=== PATIENT | female | born 1975 | race Caucasian/White ===

== ENCOUNTER 2016-06-09 16:35 | Emergency (ER) | payer MEDICAID ==
[~2016-06-09 16:35] MED LIST: /ALEN70TA PO; /DULO30CA PO; /ESOM40CA PO; /FENT75PA TD; /ONDA4TA OR; /QUET10TA PO; ACET500T2 PO; ALBU0.63 INH; ALBU17IN INH; ALBU83IN IN; ALBU83IN INH; ALREX OU; AMAN10CA PO; AMBI10TA PO; AMBI5TAB PO; BACT2CRE EX; BACT2CRE TOP; BACT400T PO; BACTROBAN; BETO0.25 OS; BETO0.25 OU; BISO10TA6 PO; BISO5TAB5 PO; CALCCHW12 PO; CEFD1CAP8 PO; CIPR500T19 PO; CIPR500T89 PO; CITRTAB10 PO; CITRTAB19 PO; CLOTR1CR TOP; CORT10TA PO; CORT20TA PO; CORTEF PO; DEPA250T3 OR; DEPA250T32 PO; DICL13PA TD; DILA4TAB PO; DILA8TAB4 PO; DIPR0.052 TD; DIPROLENE TOP; DITR5TAB PO; DIVA500T9 PO; DULO1CAP3 PO; DULO30CA PO; DURA100D2 TD; EES TD; ERYTHROMYCI1 OP; FLAG500T PO; FLUD0.1T PO; FLUT11IN INH; FOLI1TAB PO; FOLI1TAB2 PO; FOLI5CAP PO; FROVA PO; GLUC1CAP9 PO; GLUC500T3 OR; HYDR-3291 PO; HYDR4TAB OR; IMOD2TAB16 PO; K-TA1TAB PO; LAMI250T3 PO; LEVO75TA4 PO; LEVO88TA4 PO; LIDO5DIS TD; LISI-542 PO; LISI10TA4 PO; MAGN400C2 PO; MAGN64TASA PO; MELOPOW PO; METH2.5T PO; METH2.5TA PO; MIRT15TA3 PO; MIRT30TA3 PO; MOBI7.5T10 PO; MULTCAP PO; MULTIVIT PO; NEUR100C PO; NEUR300C PO; NEXI40CA PO; NORC5TAB PO; OLAN10TA2 PO; OLAN5TAB PO; ONDA1TAB16 PO; PERC5TAB6 PO; PERCOCET PO; POTA10CA PO; POTA1INJ PO; PREG100CA PO; PRIN5TAB PO; PROBCAP4 PO; RANI150C OR; RANI15TA PO; RANI300T PO; ROZE8TAB PO; SERO200T OR; SERO50TA PO; SING10TA31 PO; SING10TA32 PO; SKEL800T5 OR; SPIR25TA2 PO; SULF500T2 PO; SULF50TA PO; TIGA300C PO; TIZA4CAP3 PO; TRAZ50TA4 PO; TYLE325T5 PO; TYLE500T78 PO; TYLE650T35 PO; VIT D 2000 PO; VITA100066 PO; VITA50003 PO; VITMTA PO; VOLT1GEL EX; VOLT1GEL24 TOP; XALA0.002 OU; ZITHTAB PO; ZOFR20TA PO; [UNRECOGNIZED DRUG - CODE] IV; [UNRECOGNIZED DRUG - CODE] OU; [UNRECOGNIZED DRUG - CODE] SC; [UNRECOGNIZED DRUG - CODE] TOP; [UNRECOGNIZED DRUG - OTHER]; [UNRECOGNIZED DRUG - OTHER] OU; [UNRECOGNIZED DRUG - OTHER] PO; [UNRECOGNIZED DRUG - OTHER] TOP; enbrel SC; fludrocortisone PO; kadian PO; pataday OU; veramyst
[2016-06-09] MEDS ORDERED: MORPHINE 2 MG/ML 1ML SYRINGE As Ordered ONE (18:54)
[2016-06-09 19:37] LABS: MEAN CORPUSCULAR HEMOGLOBIN 25.9 pg (27.0-33.0); MEAN CORPUSCULAR HGB CONC 31.6 g/dl (32.0-36.5); PLATELET COUNT, AUTOMATED 326 k/mm3 (150-450); RED CELL DISTRIBUTION WIDTH 17.2 % (11.5-14.5); WHITE BLOOD COUNT 10.3 K/mm3 (4.0-10.0)
[2016-06-09 19:53] LABS: ANISOCYTOSIS 2+; HYPOCHROMASIA 2+
[2016-06-09 20:40] LABS: ANION GAP 10 MEQ/L (8-16); BLOOD UREA NITROGEN 15 MG/DL (7-18); CALCIUM LEVEL 9.4 MG/DL (8.5-10.1); CARBON DIOXIDE LEVEL 22 MEQ/L (21-32); CHLORIDE LEVEL 106 MEQ/L (98-107); CREATININE FOR GFR 0.78 MG/DL (0.55-1.02); GLOMERULAR FILTRATION RATE > 60.0 (>60); GLUCOSE, FASTING 86 MG/DL (70-105); POTASSIUM SERUM 4.3 MEQ/L (3.5-5.1); SODIUM LEVEL 138 MEQ/L (136-145)
--- NOTE | 2016-06-09 20:40 | REPUSA ---
CT of the lumbar spine without contrast Clinical history: Pain. Technique: Multiple axial CT images were obtained through the lumbar spine without administration of contrast. Coronal and sagittal 3-D reconstructed images were also obtained. Findings: The lumbar vertebral bodies are in satisfactory positioning and alignment. No fractures or dislocatio ns are demonstrated. Intervertebral disc spaces are well-maintained. Minimal facet arthropathy is see n bilaterally at L5/S1. There is no evidence of facet subluxation. The neural foramen appear grossly patent. The spinal canal demonstrates normal caliber and contour without evidence of spinal stenosis. The surrounding soft tissues are within normal limits. Impression: No acute fracture or traumatic injury. Mild facet arthropathy is seen bilaterally at L5/S 1.
--- NOTE | 2016-06-09 20:40 | REPUSA ---
CT of the cervical spine Clinical history: Pain. Seizure. Technique: Multiple axial CT images were obtained through the cervical spine without administration o f contrast. Coronal and sagittal 3-D reconstructed images were also obtained. Comparison: None. Findings: The cervical vertebral bodies are in satisfactory positioning and alignment. No fractures or dislocat ions are demonstrated. The odontoid process is intact. Intervertebral disc spaces are well-maintained . Minimal facet arthropathy is seen at C4/C5. There is no evidence of facet subluxation. The neural f oramen appear grossly patent. The cervical cranial junction is intact. The cervical spinal canal demo nstrates normal caliber and contour without evidence of spinal stenosis. The surrounding soft tissues are within normal limits. Impression: Unremarkable CT examination of the cervical spine. Minimal spondylosis.
--- NOTE | 2016-06-09 20:40 | REPUSA ---
CT of the head Clinical history: seizures.. Comparison: 07/12/2015. 01/14/2016. Technique: Multiple axial CT images were obtained through the head without administration of contrast . Findings: The ventricles and sulci are symmetric bilaterally. There is no evidence of acute hemorrhag e or infarct. There is no midline shift, mass effect, or extra-axial fluid collection. The osseous st ructures are unremarkable. The visualized paranasal sinuses and mastoid air cells are clear. Impression: Negative study.
--- NOTE | 2016-06-09 20:50 | REPUSA ---
CT of the thoracic spine without contrast Clinical history: Pain. Technique: Multiple axial CT images were obtained through the thoracic spine without administration o f contrast. Coronal and sagittal 3-D reconstructed images were also obtained. Findings: The vertebral bodies are in satisfactory positioning and alignment. No fractures or dislocations are demonstrated. Intervertebral disc spaces are well-maintained. There is no evidence of facet subluxati on. The neural foramen appear grossly patent. The spinal canal demonstrates normal caliber and contou r without evidence of spinal stenosis. The surrounding soft tissues are within normal limits. Impression: No acute traumatic injury
[2016-06-09] MEDS ORDERED: DIVALPROEX 250 MG TAB As Ordered ONE (22:45)
--- NOTE | 2016-06-09 22:58 | EDDOCDS ---
Physician Documentation [facility] Name: Demi Burger Age: 40 yrs Sex: Female : 1975 Arrival Date: 06/09/2016 Time: 16:35 Bed 8 Private MD: Fredo Patel Disposition: 06/09/16 22:26 Discharged to Home/Self Care. Impression: Epilepsy and recurrent seizures, Patient's unintentional underdosing of medication regimen. - Condition is Stable. - Medication Reconciliation, Local Pharmacy Hours form. - Follow up: Fredo Patel; When: Call to arrange an appointment; Reason: Recheck today's complaints. - Problem is an ongoing problem. - Symptoms have improved. Historical: - Allergies: Aspirin (Hematuria); Bentyl ("feels like i want to pull my skin off"); Biaxin (Rash); GOLD SALTS (Hematuria); Ibuprofen (Hematuria); Toradol (Hematuria); Ultram (Seizures); Wellbutrin (Seizures); - Home Meds: 1. albuterol sulfate 2.5 mg /3 mL (0.083 %) Inhl HFAA 3 mL prn 2. bactroban cream 2% 3. Betoptic S 0.25 % Opht drps 1 drop 2 times per day 4. bisoprolol fumarate 10 mg oral tab 1 tab once daily 5. Citracal 200 mg (950 mg) Oral tab 4 tab daily 6. Cortef 30 mg oral tab 2 tabs once daily 7. Cortef 10 mg oral tab 1 tab nightly 8. Cymbalta 60 mg Oral cpDR 1 cap once daily 9. Depakote ER 500 mg ER one tab in AM and two at HS Oral Tb24 1 tab 10. dexamethasone sodium phos (PF) 10 mg/mL injection soln 1 mL At onset of adrenal crisis 11. Flovent 110 mcg/actuation Inhl aero 1 puff 2 times per day 12. folic acid 1 mg Oral tab 5 tab once daily 13. glucosamine-chondroitin 500-400 mg oral tab 3 tab nightly 14. Imodium A-D 2 mg oral tab 2 tabs 15. Kineret 100 mg/0.67 mL subcutaneous syrg daily PRN 16. levothyroxine 75 mcg Oral cap 1 cap once daily 17. lisinopril 5 mg Oral tab 2 tabs once daily 18. Mag 64 64 mg oral tab 1 tab daily 19. methotrexate sodium 2.5 mg Oral tab 6 tabs every Sunday 20. mirtazapine 30 mg Oral TbDL nightly 21. Mobic 15 mg oral tab 1 tab once daily 22. multivitamin Oral tab 1 tab daily 23. Nexium 40 mg Oral cpDR 1 cap once daily 24. potassium chloride 10 mEq Oral cpER 2 caps once daily 25. ProAir HFA 90 mcg/actuation inhalation HFAA 1 puff as needed 26. sulfasalazine 500 mg Oral tab 2 tab three times a day 27. Tigan 300 mg Oral cap BID PRN 28. Tylenol 500mg Oral 1 tab as needed 29. Vitamin D Oral 1000 unit daily couple weeks ago 30. voltaren gel as needed 31. Xalatan 0.005 % Opht drop 1 drop once daily 32. Zebeta 10 mg oral tab 2 tabs once daily 33. Zofran (as hydrochloride) 8 mg Oral tab 1 tab every 6 hours as needed 34. hydroxyzine HCl 25 mg Oral tab as needed - PMHx: adrenal crisis; adrenal insufficiency; Asthma; benign mitral valve prolapse; chronic anemia; Colitis; Fibromyalgia; GERD; Hypertension; Hypothyroidism; IBS; juvenile arthritis; Lupus; Migraines; neuropathy; Seizures; - PSHx: Knee surgery- Left; left great toe; right wrist; - Social history: Smoking status: Patient states former smoker of tobacco. No barriers to communication noted, The patient speaks fluent Arabic. - Family history: Not pertinent. - : The pt / caregiver states he / she is not on anticoagulants. Home medication list is obtained from the patient. - Exposure Risk Screening:: None identified. 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 0 in. (152.40 cm) (R); 18:07 BP 130 / 67 (auto/); ttb 18:08 Pulse 112 MON; Resp 18 S; Pulse Ox 98% on R/A; ttb 18:58 BP 147 / 88 (auto/); ttb 18:59 Pulse 118 MON; Pulse Ox 97% on R/A; ttb 19:27 Pulse 110 MON; Resp 18 S; Pulse Ox 98% on R/A; ttb 19:28 BP 134 / 68 (auto/); ttb 19:30 Resp 18 S; ttb 19:57 Pulse 112 MON; Resp 18 S; Pulse Ox 97% on R/A; ttb 19:58 BP 134 / 64 (auto/); ttb 20:28 BP 126 / 66 (auto/); ttb 20:28 Pulse 110 MON; Pulse Ox 98% ; ttb 22:44 BP 131 / 81 LA Sitting (auto/reg); Pulse 119 MON; Resp 22 S; Temp 99.3(TE); Pulse Ox cln 99% on R/A; Pain 8/10; 16:36 Body Mass Index 24.02 (55.79 kg, 152.40 cm) dd6 MDM: 18:11 IV Saline Lock ordered. br1 18:12 CBC with Diff Ordered. EDMS 18:12 BMP Ordered. EDMS 18:44 Card Writer Hand/Pulse Ox/q 30 min VS ordered. br1 18:45 Seizure Precautions ordered. br1 18:46 ECG WITH READING ER PHYS+CARDIAG ordered. EDMS 18:46 CT Head Without Contrast Ordered. EDMS 18:46 CT Spine,Cervical W/o Contrast Ordered. EDMS 18:46 CT Spine,Thoracic W/o Contrast Ordered. EDMS 18:46 CT Spine, Lumbar W/o Contrast Ordered. EDMS 18:47 morphine 2 mg IVP once ordered. br1 19:05 Financial registration complete. zo 19:06 [facility] [place] was scanned into [employer] and attached to record. zo 19:18 Transition of care: After a detail discussion of the patient's case, care is br1 transferred to ED Physician, Dr. Morley. 19:21 VALPROIC ACID (DEPAKOTE) Ordered. EDMS 19:39 DIFFERENTIAL NO CHARGE Ordered. EDMS 22:19 CBC with Diff Reviewed. cs11 22:19 VALPROIC ACID (DEPAKOTE) Reviewed. cs11 22:19 BMP Reviewed. cs11 22:19 PLATELET ESTIMATE Reviewed. cs11 22:19 CT Head Without Contrast Reviewed. cs11 22:19 CT Spine,Cervical W/o Contrast Reviewed. cs11 22:19 CT Spine,Thoracic W/o Contrast Reviewed. cs11 22:19 CT Spine, Lumbar W/o Contrast Reviewed. cs11 22:[address] - Divalproex Sodium Delayed Release Tablet 500 mg PO once ordered. cs11 Administered Medications: 19:05 Drug: morphine 2 mg [morphine 2 mg/mL intravenous cartridge (1 mL)] Route: IVP; Site: ld5 right forearm; 19:30 Follow up: Resp 18 bpm Spontaneous; Response: No Adverse Reaction ttb 22:57 Follow up: Response: Confirmed pt not driving. ttb 22:52 Drug: Depakote DR - Divalproex Sodium 500 mg [divalproex 250 mg tablet,delayed release ttb (2 tabs)] Route: PO; Signatures: Dispatcher [employer] EDMS Montrell Cochran Brian, MD MD br1 Serene Jose RN RN rs3 Cornell Morley, DO cs11 Rivka Campbell RN RN ttb Beatriz Ashley RN ld5 The chart was reviewed and I authenticate all verbal orders and agree with the evaluation and treatment provided.Corrections: (The following items were deleted from the chart) 19:19 18:45 VALPROIC ACID (DEPAKOTE)+LAB ordered. EDMS EDMS Attachments: 19:06 [facility] [place] Agreement zo MTDD
--- NOTE | 2016-06-09 22:58 | EDDOCDS ---
Nurse's Notes [facility], [place] Name: Demi Burger Age: 40 yrs Sex: Female : 1975 Arrival Date: 06/09/2016 Time: 16:35 Bed 8 Private MD: Fredo Patel Diagnosis: Epilepsy and recurrent seizures;Patient's unintentional underdosing of medication regimen Presentation: 06/09 16:39 Presenting complaint: Patient states: had 3 seizures since this morning, found herself rs3 on the floor. reports of dizziness. Adult Sepsis Screening: The patient does not have new or worsening altered mentation. Patient's respiratory rate is less than 22. Systolic blood pressure is greater than 100. Patient has a qSOFA score of 0- Negative Sepsis Screen. Suicide/Homicide risk assessment- the patient denies having any suicidal and/or homicidal ideations and does not present with any other emotional, behavioral or mental health complaints. Status: Patient is not a career services assistant or dependent. Transition of care: patient was not received from another setting of care. 16:39 Acuity: EULA Level 3 rs3 16:39 Method Of Arrival: Wheelchair rs3 Triage Assessment: 16:45 General: Appears in no apparent distress. Pain: Location: back. HIV screening NA for rs3 this visit Offered previously. 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 albuterol sulfate 2.5 mg /3 mL (0.083 %) Inhl HFAA 3 mL prn 2. bactroban cream 2% 3. Betoptic S 0.25 % Opht drps 1 drop 2 times per day 4. bisoprolol fumarate 10 mg oral tab 1 tab once daily 5. Citracal 200 mg (950 mg) Oral tab 4 tab daily 6. Cortef 30 mg oral tab 2 tabs once daily 7. Cortef 10 mg oral tab 1 tab nightly 8. Cymbalta 60 mg Oral cpDR 1 cap once daily 9. Depakote ER 500 mg ER one tab in AM and two at HS Oral Tb24 1 tab 10. dexamethasone sodium phos (PF) 10 mg/mL injection soln 1 mL At onset of adrenal crisis 11. Flovent 110 mcg/actuation Inhl aero 1 puff 2 times per day 12. folic acid 1 mg Oral tab 5 tab once daily 13. glucosamine-chondroitin 500-400 mg oral tab 3 tab nightly 14. Imodium A-D 2 mg oral tab 2 tabs 15. Kineret 100 mg/0.67 mL subcutaneous syrg daily PRN 16. levothyroxine 75 mcg Oral cap 1 cap once daily 17. lisinopril 5 mg Oral tab 2 tabs once daily 18. Mag 64 64 mg oral tab 1 tab daily 19. methotrexate sodium 2.5 mg Oral tab 6 tabs every Sunday 20. mirtazapine 30 mg Oral TbDL nightly 21. Mobic 15 mg oral tab 1 tab once daily 22. multivitamin Oral tab 1 tab daily 23. Nexium 40 mg Oral cpDR 1 cap once daily 24. potassium chloride 10 mEq Oral cpER 2 caps once daily 25. ProAir HFA 90 mcg/actuation inhalation HFAA 1 puff as needed 26. sulfasalazine 500 mg Oral tab 2 tab three times a day 27. Tigan 300 mg Oral cap BID PRN 28. Tylenol 500mg Oral 1 tab as needed 29. Vitamin D Oral 1000 unit daily couple weeks ago 30. voltaren gel as needed 31. Xalatan 0.005 % Opht drop 1 drop once daily 32. Zebeta 10 mg oral tab 2 tabs once daily 33. Zofran (as hydrochloride) 8 mg Oral tab 1 tab every 6 hours as needed 34. hydroxyzine HCl 25 mg Oral tab as needed - PMHx: adrenal crisis; adrenal insufficiency; Asthma; benign mitral valve prolapse; chronic anemia; Colitis; Fibromyalgia; GERD; Hypertension; Hypothyroidism; IBS; juvenile arthritis; Lupus; Migraines; neuropathy; Seizures; - PSHx: Knee surgery- Left; left great toe; right wrist; - Social history: Smoking status: Patient states former smoker of tobacco. No barriers to communication noted, The patient speaks fluent Icelandic. - Family history: Not pertinent. - : The pt / caregiver states he / she is not on anticoagulants. Home medication list is obtained from the patient. - Exposure Risk Screening:: None identified. Screenin:40 Screening information is obtained from the patient. Fall risk: No risks identified. ttb Assistance ADL's: requires no assistance with activities of daily living. Abuse/DV Screen: The patient / caregiver reports he/she is: not in a situation that causes fear, pain or injury. Nutritional screening: No deficits noted. Advance Directives: Currently, there is no health care proxy. home support is adequate. Assessment: 17:38 General: pt sitting on stretcher on laptop. NAD noted. Answering questions ttb appropriately. NAD noted.. 17:40 General: Appears in no apparent distress, well nourished, Behavior is appropriate for ttb age, cooperative, pleasant. Pain: Location: lower back. Neurological: Level of Consciousness is awake, alert, Oriented to person, place, time, Moves all extremities. Speech is normal, Facial symmetry appears normal, Denies weakness blurred vision numbness headache Reports Back Pain dizziness. Neurological: Reports seizures : one "this morning sometime and another a couple hours ago".. Cardiovascular: Chest pain is denied. Respiratory: No deficits noted. Airway is patent Respiratory effort is even, unlabored, Respiratory pattern is regular, symmetrical, Denies cough, shortness of breath. GI: Denies nausea, vomiting, pain. Derm: Skin is normal. Injury Description: No known injury. 18:30 General: MD in with pt at this time. . ttb 19:23 Reassessment: Patient appears in no apparent distress at this time. pt continues to sit ttb on stretcher, typing on computer. NAD noted.. 19:30 Adult Sepsis Screening: The patient does not have new or worsening altered mentation. ttb Patient's respiratory rate is less than 22. Systolic blood pressure is greater than 100. Patient has a qSOFA score of 0- Negative Sepsis Screen. 20:30 General: Appears in no apparent distress, comfortable. General: pt ambulated to BR with ttb steady gait. Mother at bedside. Remains on computer on stretcher. SR on monitor. Pain:. 20:30 Adult Sepsis Screening: The patient does not have new or worsening altered mentation. ttb Patient's respiratory rate is less than 22. Systolic blood pressure is greater than 100. Patient has a qSOFA score of 0- Negative Sepsis Screen. 21:30 Reassessment: Patient appears in no apparent distress at this time. pt resting on ttb stretcher. NAD noted. On laptop. Mother at bedside. . 21:30 Neurological: Level of Consciousness is awake, alert. Cardiovascular: Rhythm is sinus ttb rhythm Chest pain is denied. Respiratory: No deficits noted. Airway is patent Respiratory effort is even, unlabored, Denies cough, shortness of breath. 22:30 Reassessment: Patient appears in no apparent distress at this time. Patient states ttb feeling better. pt ready for DC. Pain remains to mid back, however improved. . 22:30 General: Appears in no apparent distress, comfortable. Neurological: Level of ttb Consciousness is awake, alert. Respiratory: No deficits noted. Vital Signs: 16:36 BP 137 / 60; Pulse 120; Resp 18 S; Temp 98.2(O); Pulse Ox 100% on R/A; Weight 55.79 kg dd6 (R); Height 5 ft. 0 in. (152.40 cm) (R); 18:07 BP 130 / 67 (auto/); ttb 18:08 Pulse 112 MON; Resp 18 S; Pulse Ox 98% on R/A; ttb 18:58 BP 147 / 88 (auto/); ttb 18:59 Pulse 118 MON; Pulse Ox 97% on R/A; ttb 19:27 Pulse 110 MON; Resp 18 S; Pulse Ox 98% on R/A; ttb 19:28 BP 134 / 68 (auto/); ttb 19:30 Resp 18 S; ttb 19:57 Pulse 112 MON; Resp 18 S; Pulse Ox 97% on R/A; ttb 19:58 BP 134 / 64 (auto/); ttb 20:28 BP 126 / 66 (auto/); ttb 20:28 Pulse 110 MON; Pulse Ox 98% ; ttb 22:44 BP 131 / 81 LA Sitting (auto/reg); Pulse 119 MON; Resp 22 S; Temp 99.3(TE); Pulse Ox cln 99% on R/A; Pain 8/10; 16:36 Body Mass Index 24.02 (55.79 kg, 152.40 cm) dd6 Vitals: 16:36 Log In Time: June 09, 2016 at 16:34. dd6 ED Course: 16:36 Patient visited by Davy Roman PCA. dd6 16:36 Fredo Patel is Private Physician. dd6 16:36 Patient moved to Waiting dd6 16:37 Patient moved to Pre RCE dd6 16:40 Triage Initiated rs3 17:18 Patient moved to 8 ct3 17:40 The patient / caregiver is instructed regarding the plan of care and ED course. Patient ttb has correct armband on for positive identification. Placed in gown. Call light in reach. oracle ascp consultant on. Pulse ox on. NIBP on. 17:44 Patient visited by Rivka Campbell RN. ttb 18:02 Patient visited by Rivka Campbell RN. ttb 18:09 Patient visited by Rivka Campbell RN. ttb 18:37 Wilbert Eric MD is Attending Physician. br1 18:43 Patient visited by Wilbert Eric MD. br1 18:47 Patient visited by Rivka Campbell RN. ttb 19:04 Seizure precautions initiated. ld5 19:04 Inserted saline lock: 20 gauge in right forearm by Starr Wei RN. ld5 19:05 Patient visited by Beatriz Ashley RN. ld5 19:06 [facility] Payment Agreement was scanned into [employer] and attached to record. zo 19:21 Patient visited by Hemalatha Guaman PCA. jb5 19:21 Patient visited by Hemalatha Guaman PCA. jb5 19:21 EKG done. (by ED staff). Reviewed by Cornell Morley DO. jb5 19:25 Patient visited by Rivka Campbell RN. ttb 19:26 VALPROIC ACID (DEPAKOTE) Sent. cp1 19:30 Attending Physician role handed off by Wilbert Eric MD cs11 19:30 Cornell Morley DO is Attending Physician. cs11 19:41 DIFFERENTIAL NO CHARGE Sent. ttb 20:15 Patient visited by Rivka Campbell RN. ttb 20:17 Patient visited by Rivka Campbell RN. ttb 21:05 Patient visited by Rivka Campbell RN. ttb 21:21 CT Head Without Contrast Returned. EDMS 21:21 CT Spine,Cervical W/o Contrast Returned. EDMS 21:21 CT Spine, Lumbar W/o Contrast Returned. EDMS 21:21 CT Spine,Thoracic W/o Contrast Returned. EDMS 22:24 Fredo Patel is Referral Physician. cs11 22:30 Discontinued IV lock intact, bleeding controlled, pressure dressing applied, No ttb redness/swelling at site. No procedures done that require assistance. 22:45 Patient visited by Prachi Sierra PCA. human Administered Medications: 19:05 Drug: morphine 2 mg [morphine 2 mg/mL intravenous cartridge (1 mL)] Route: IVP; Site: ld5 right forearm; 19:30 Follow up: Resp 18 bpm Spontaneous; Response: No Adverse Reaction ttb 22:57 Follow up: Response: Confirmed pt not driving. ttb 22:52 Drug: Depakote DR - Divalproex Sodium 500 mg [divalproex 250 mg tablet,delayed release ttb (2 tabs)] Route: PO; Order Results: Lab Order: CBC with Diff; SPEC'M 06/09/16 19:04 Test: WHITE BLOOD COUNT; Value: 10.3; Range: 4.0-10.0; Abnormal: Above high normal; Units: K/mm3; Status: F Test: RED BLOOD COUNT; Value: 4.41; Range: 4.00-5.40; Units: M/mm3; Status: F Test: HEMOGLOBIN; Value: 11.4; Range: 12.0-16.0; Abnormal: Below low normal; Units: g/dl; Status: F Test: HEMATOCRIT; Value: 36.1; Range: 36.0-47.0; Units: %; Status: F Test: MEAN CORPUSCULAR VOLUME; Value: 82.0; Range: 80.0-96.0; Units: fl; Status: F Test: MEAN CORPUSCULAR HEMOGLOBIN; Value: 25.9; Range: 27.0-33.0; Abnormal: Below low normal; Units: pg; Status: F Test: MEAN CORPUSCULAR HGB CONC; Value: 31.6; Range: 32.0-36.5; Abnormal: Below low normal; Units: g/dl; Status: F Test: RED CELL DISTRIBUTION WIDTH; Value: 17.2; Range: 11.5-14.5; Abnormal: Above high normal; Units: %; Status: F Test: PLATELET COUNT, AUTOMATED; Value: 326; Range: 150-450; Units: k/mm3; Status: F Test: NEUTROPHILS; Value: 82; Range: 35-75; Abnormal: Above high normal; Units: %; Status: F Test: LYMPHOCYTES; Value: 11; Range: 16-52; Abnormal: Below low normal; Units: %; Status: F Test: MONOCYTES; Value: 7; Range: 0-8; Units: %; Status: F Test: HYPOCHROMASIA; Value: 2+; Status: F Test: ANISOCYTOSIS; Value: 2+; Status: F Lab Order: BMP; SPEC'M 06/09/16 19:48 Test: GLUCOSE, FASTING; Value: 86; Range: 70-105; Units: MG/DL; Status: F Test: BLOOD UREA NITROGEN; Value: 15; Range: 7-18; Units: MG/DL; Status: F Test: CREATININE FOR GFR; Value: 0.78; Range: 0.55-1.02; Units: MG/DL; Status: F Test: GLOMERULAR FILTRATION RATE; Value: > 60.0; Range: >60; Status: F Test: SODIUM LEVEL; Value: 138; Range: 136-145; Units: MEQ/L; Status: F Test: POTASSIUM SERUM; Value: 4.3; Range: 3.5-5.1; Units: MEQ/L; Status: F Test: CHLORIDE LEVEL; Value: 106; Range: 98-107; Units: MEQ/L; Status: F Test: CARBON DIOXIDE LEVEL; Value: 22; Range: 21-32; Units: MEQ/L; Status: F Test: ANION GAP; Value: 10; Range: 8-16; Units: MEQ/L; Status: F Test: CALCIUM LEVEL; Value: 9.4; Range: 8.5-10.1; Units: MG/DL; Status: F Test Note: ; Units are mL/min/1.73 m2 Chronic Kidney Disease Staging per NKF: Stage I & II GFR >=60 Normal to Mildly Decreased Stage III GFR 30-59 Moderately Decreased Stage IV GFR 15-29 Severely Decreased Stage V GFR <15 Very Little GFR Left ESRD GFR <15 on FURNITURE ASSEMBLER Lab Order: VALPROIC ACID (DEPAKOTE); SPEC'M 06/09/16 19:48 Test: VALPROIC ACID (DEPAKOTE); Value: 28.7; Range: 50.0-100.0; Abnormal: Below low normal; Units: UG/ML; Status: F Lab Order: PLATELET ESTIMATE; SPEC'M 06/09/16 19:04 Test: PLATELET ESTIMATE; Value: NORMAL; Range: NORMAL; Status: F Radiology Order: CT Head Without Contrast Test: CT Head Without Contrast REASON FOR EXAMINATION: mult seizures today; ; CT of the head; Clinical history: seizures..; Comparison: 07/12/2015. 01/14/2016.; Technique: Multiple axial CT images were obtained through the head without administration of contrast; .; Findings: The ventricles and sulci are symmetric bilaterally. There is no evidence of acute hemorrhag; e or infarct. There is no midline shift, mass effect, or extra-axial fluid collection. The osseous st; ructures are unremarkable. The visualized paranasal sinuses and mastoid air cells are clear.; Impression: Negative study.; ; Radiology Order: CT Spine,Cervical W/o Contrast Test: CT Spine,Cervical W/o Contrast REASON FOR EXAMINATION: Trauma; ; CT of the cervical spine; Clinical history: Pain. Seizure.; Technique: Multiple axial CT images were obtained through the cervical spine without administration o; f contrast. Coronal and sagittal 3-D reconstructed images were also obtained.; Comparison: None.; Findings:; The cervical vertebral bodies are in satisfactory positioning and alignment. No fractures or dislocat; ions are demonstrated. The odontoid process is intact. Intervertebral disc spaces are well-maintained; . Minimal facet arthropathy is seen at C4/C5. There is no evidence of facet subluxation. The neural f; oramen appear grossly patent. The cervical cranial junction is intact. The cervical spinal canal demo; nstrates normal caliber and contour without evidence of spinal stenosis. The surrounding soft tissues; are within normal limits.; Impression: Unremarkable CT examination of the cervical spine. Minimal spondylosis.; ; Radiology Order: CT Spine,Thoracic W/o Contrast Test: CT Spine,Thoracic W/o Contrast REASON FOR EXAMINATION: Trauma; ; CT of the thoracic spine without contrast; Clinical history: Pain.; Technique: Multiple axial CT images were obtained through the thoracic spine without administration o; f contrast. Coronal and sagittal 3-D reconstructed images were also obtained.; Findings:; The vertebral bodies are in satisfactory positioning and alignment. No fractures or dislocations are; demonstrated. Intervertebral disc spaces are well-maintained. There is no evidence of facet subluxati; on. The neural foramen appear grossly patent. The spinal canal demonstrates normal caliber and contou; r without evidence of spinal stenosis. The surrounding soft tissues are within normal limits.; Impression: No acute traumatic injury; ; Radiology Order: CT Spine, Lumbar W/o Contrast Test: CT Spine, Lumbar W/o Contrast REASON FOR EXAMINATION: Trauma; ; CT of the lumbar spine without contrast; Clinical history: Pain.; Technique: Multiple axial CT images were obtained through the lumbar spine without administration of; contrast. Coronal and sagittal 3-D reconstructed images were also obtained.; Findings:; The lumbar vertebral bodies are in satisfactory positioning and alignment. No fractures or dislocatio; ns are demonstrated. Intervertebral disc spaces are well-maintained. Minimal facet arthropathy is see; n bilaterally at L5/S1. There is no evidence of facet subluxation. The neural foramen appear grossly; patent. The spinal canal demonstrates normal caliber and contour without evidence of spinal stenosis.; The surrounding soft tissues are within normal limits.; Impression: No acute fracture or traumatic injury. Mild facet arthropathy is seen bilaterally at L5/S; 1.; ; Outcome: 22:26 Discharge ordered by Provider. cs11 22:30 Discharge Assessment: Patient awake, alert and oriented x 3. No cognitive and/or ttb functional deficits noted. Patient verbalized understanding of disposition instructions. Patient awake and alert. patient administered narcotics - yes. Pt provided with safe discharge. The following High Risk Discharge criteria are identified: None. Discharged to home ambulatory, with parent. Condition: good Condition: stable Condition: improved. Discharge instructions given to patient, parents Instructed on discharge instructions, follow up and referral plans. medication usage, no driving heavy equipment, no drinking with medication, Demonstrated understanding of instructions, medications, no d/d with narcs Pt was receptive of discharge instructions/ teaching. CT Study completed. Property :Personal belongings accompany Pt. 22:57 Patient left the ED. ttb Signatures: Dispatcher [employer] EDHemalatha Gilbert LITHOGRAPHIC CAMERA OPERATOR LITHOGRAPHIC CAMERA OPERATOR jb5 Montrell Cochran Brian, MD MD br1 Davy Roman, LITHOGRAPHIC CAMERA OPERATOR LITHOGRAPHIC CAMERA OPERATOR dd6 Serene Jose RN RN rs3 Aditi Mendoza,WET TRIMMER WET TRIMMER cp1 Beatriz Ashley RN RN ld5 Elizabeth Mclaughlin, LITHOGRAPHIC CAMERA OPERATOR LITHOGRAPHIC CAMERA OPERATOR ct3 Cornell Morley, DO DO cs11 Rivka Campbell RN RN ttb Prachi Sierra, LITHOGRAPHIC CAMERA OPERATOR LITHOGRAPHIC CAMERA OPERATOR cln Corrections: (The following items were deleted from the chart) 22:55 21:30 Adult Sepsis Screening: The patient does not have new or worsening altered ttb mentation. Patient's respiratory rate is less than 22. Systolic blood pressure is greater than 100. Patient has a qSOFA score of 0- Negative Sepsis Screen. ttb MTDD
--- NOTE | 2016-06-10 08:13 | ECGEPIP ---
Stationary ECG Study 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
--- NOTE | 2016-06-11 23:58 | EDDOCDS ---
Physician Documentation [facility] Name: Demi Burger Age: 40 yrs Sex: Female : 1975 Arrival Date: 06/09/2016 Time: 16:35 Bed 8 Private MD: Fredo Patel Disposition: 06/09/16 22:26 Discharged to Home/Self Care. Impression: Epilepsy and recurrent seizures, Patient's unintentional underdosing of medication regimen. - Condition is Stable. - Medication Reconciliation, Local Pharmacy Hours form. - Follow up: Fredo Patel; When: Call to arrange an appointment; Reason: Recheck today's complaints. - Problem is an ongoing problem. - Symptoms have improved. Historical: - Allergies: Aspirin (Hematuria); Bentyl ("feels like i want to pull my skin off"); Biaxin (Rash); GOLD SALTS (Hematuria); Ibuprofen (Hematuria); Toradol (Hematuria); Ultram (Seizures); Wellbutrin (Seizures); - Home Meds: 1. albuterol sulfate 2.5 mg /3 mL (0.083 %) Inhl HFAA 3 mL prn 2. bactroban cream 2% 3. Betoptic S 0.25 % Opht drps 1 drop 2 times per day 4. bisoprolol fumarate 10 mg oral tab 1 tab once daily 5. Citracal 200 mg (950 mg) Oral tab 4 tab daily 6. Cortef 30 mg oral tab 2 tabs once daily 7. Cortef 10 mg oral tab 1 tab nightly 8. Cymbalta 60 mg Oral cpDR 1 cap once daily 9. Depakote ER 500 mg ER one tab in AM and two at HS Oral Tb24 1 tab 10. dexamethasone sodium phos (PF) 10 mg/mL injection soln 1 mL At onset of adrenal crisis 11. Flovent 110 mcg/actuation Inhl aero 1 puff 2 times per day 12. folic acid 1 mg Oral tab 5 tab once daily 13. glucosamine-chondroitin 500-400 mg oral tab 3 tab nightly 14. Imodium A-D 2 mg oral tab 2 tabs 15. Kineret 100 mg/0.67 mL subcutaneous syrg daily PRN 16. levothyroxine 75 mcg Oral cap 1 cap once daily 17. lisinopril 5 mg Oral tab 2 tabs once daily 18. Mag 64 64 mg oral tab 1 tab daily 19. methotrexate sodium 2.5 mg Oral tab 6 tabs every Sunday 20. mirtazapine 30 mg Oral TbDL nightly 21. Mobic 15 mg oral tab 1 tab once daily 22. multivitamin Oral tab 1 tab daily 23. Nexium 40 mg Oral cpDR 1 cap once daily 24. potassium chloride 10 mEq Oral cpER 2 caps once daily 25. ProAir HFA 90 mcg/actuation inhalation HFAA 1 puff as needed 26. sulfasalazine 500 mg Oral tab 2 tab three times a day 27. Tigan 300 mg Oral cap BID PRN 28. Tylenol 500mg Oral 1 tab as needed 29. Vitamin D Oral 1000 unit daily couple weeks ago 30. voltaren gel as needed 31. Xalatan 0.005 % Opht drop 1 drop once daily 32. Zebeta 10 mg oral tab 2 tabs once daily 33. Zofran (as hydrochloride) 8 mg Oral tab 1 tab every 6 hours as needed 34. hydroxyzine HCl 25 mg Oral tab as needed - PMHx: adrenal crisis; adrenal insufficiency; Asthma; benign mitral valve prolapse; chronic anemia; Colitis; Fibromyalgia; GERD; Hypertension; Hypothyroidism; IBS; juvenile arthritis; Lupus; Migraines; neuropathy; Seizures; - PSHx: Knee surgery- Left; left great toe; right wrist; - Social history: Smoking status: Patient states former smoker of tobacco. No barriers to communication noted, The patient speaks fluent Spanish. - Family history: Not pertinent. - : The pt / caregiver states he / she is not on anticoagulants. Home medication list is obtained from the patient. - Exposure Risk Screening:: None identified. CLIENT PROJECT COORDINATOR: 06/09 16:45 LMP 05/22/2016 rs3 Vital Signs: 16:36 BP 137 / 60; Pulse 120; Resp 18 S; Temp 98.2(O); Pulse Ox 100% on R/A; Weight 55.79 kg dd6 / 123 lbs (R); Height 5 ft. 0 in. (152.40 cm) (R); 18:07 BP 130 / 67 (auto/); ttb 18:08 Pulse 112 MON; Resp 18 S; Pulse Ox 98% on R/A; ttb 18:58 BP 147 / 88 (auto/); ttb 18:59 Pulse 118 MON; Pulse Ox 97% on R/A; ttb 19:27 Pulse 110 MON; Resp 18 S; Pulse Ox 98% on R/A; ttb 19:28 BP 134 / 68 (auto/); ttb 19:30 Resp 18 S; ttb 19:57 Pulse 112 MON; Resp 18 S; Pulse Ox 97% on R/A; ttb 19:58 BP 134 / 64 (auto/); ttb 20:28 BP 126 / 66 (auto/); ttb 20:28 Pulse 110 MON; Pulse Ox 98% ; ttb 22:44 BP 131 / 81 LA Sitting (auto/reg); Pulse 119 MON; Resp 22 S; Temp 99.3(TE); Pulse Ox cln 99% on R/A; Pain 8/10; 16:36 Body Mass Index 24.02 (55.79 kg, 152.40 cm) dd6 MDM: 18:11 IV Saline Lock ordered. br1 18:12 CBC with Diff Ordered. EDMS 18:12 BMP Ordered. EDMS 18:44 Exercise Instructor/Pulse Ox/q 30 min VS ordered. br1 18:45 Seizure Precautions ordered. br1 18:46 ECG WITH READING ER PHYS+CARDIAG ordered. EDMS 18:46 CT Head Without Contrast Ordered. EDMS 18:46 CT Spine,Cervical W/o Contrast Ordered. EDMS 18:46 CT Spine,Thoracic W/o Contrast Ordered. EDMS 18:46 CT Spine, Lumbar W/o Contrast Ordered. EDMS 18:47 morphine 2 mg IVP once ordered. br1 19:05 Financial registration complete. zo 19:06 [facility] Payment Agreement was scanned into [employer] and attached to record. zo 19:18 Transition of care: After a detail discussion of the patient's case, care is br1 transferred to ED Physician, Dr. Morley. 19:21 VALPROIC ACID (DEPAKOTE) Ordered. EDMS 19:39 DIFFERENTIAL NO CHARGE Ordered. EDMS 22:19 CBC with Diff Reviewed. cs11 22:19 VALPROIC ACID (DEPAKOTE) Reviewed. cs11 22:19 BMP Reviewed. cs11 22:19 PLATELET ESTIMATE Reviewed. cs11 22:19 CT Head Without Contrast Reviewed. cs11 22:19 CT Spine,Cervical W/o Contrast Reviewed. cs11 22:19 CT Spine,Thoracic W/o Contrast Reviewed. cs11 22:19 CT Spine, Lumbar W/o Contrast Reviewed. cs11 22:[address] - Divalproex Sodium Delayed Release Tablet 500 mg PO once ordered. cs11 06/10 13:01 T-Sheet-- Draft Copy was scanned into [employer] and attached to record. gb 13: ECG/EKG was scanned into [employer] and attached to record. gb Administered Medications: 06/09 19:05 Drug: morphine 2 mg [morphine 2 mg/mL intravenous cartridge (1 mL)] Route: IVP; Site: ld5 right forearm; 19:30 Follow up: Resp 18 bpm Spontaneous; Response: No Adverse Reaction ttb 22:57 Follow up: Response: Confirmed pt not driving. ttb 22:52 Drug: Depakote DR - Divalproex Sodium 500 mg [divalproex 250 mg tablet,delayed release ttb (2 tabs)] Route: PO; Signatures: Dispatcher [employer] EDMS Radha Bernardo, Reg Reg gb Montrell Cochran Brian, MD MD br1 Serene Jose RN RN rs3 Cornell Morley DO DO cs11 Rivka Campbell RN RN ttb Dickerson, Laura RN ld5 The chart was reviewed and I authenticate all verbal orders and agree with the evaluation and treatment provided.Corrections: (The following items were deleted from the chart) 19:19 18:45 VALPROIC ACID (DEPAKOTE)+LAB ordered. EDMS EDMS Attachments: 19:06 [facility] Payment Agreement zo 06/10 13:01 T-Sheet-- Draft Copy gb 13: ECG/EKG gb Chart Complete MTDD
--- NOTE | 2016-06-11 23:59 | EDDOCDS ---
Physician Documentation [facility] Name: Demi Burger Age: 40 yrs Sex: Female : 1975 Arrival Date: 06/09/2016 Time: 16:35 Bed 8 Private MD: Fredo Patel Disposition: 06/09/16 22:26 Discharged to Home/Self Care. Impression: Epilepsy and recurrent seizures, Patient's unintentional underdosing of medication regimen. - Condition is Stable. - Medication Reconciliation, Local Pharmacy Hours form. - Follow up: Fredo Patel; When: Call to arrange an appointment; Reason: Recheck today's complaints. - Problem is an ongoing problem. - Symptoms have improved. Historical: - Allergies: Aspirin (Hematuria); Bentyl ("feels like i want to pull my skin off"); Biaxin (Rash); GOLD SALTS (Hematuria); Ibuprofen (Hematuria); Toradol (Hematuria); Ultram (Seizures); Wellbutrin (Seizures); - Home Meds: 1. albuterol sulfate 2.5 mg /3 mL (0.083 %) Inhl HFAA 3 mL prn 2. bactroban cream 2% 3. Betoptic S 0.25 % Opht drps 1 drop 2 times per day 4. bisoprolol fumarate 10 mg oral tab 1 tab once daily 5. Citracal 200 mg (950 mg) Oral tab 4 tab daily 6. Cortef 30 mg oral tab 2 tabs once daily 7. Cortef 10 mg oral tab 1 tab nightly 8. Cymbalta 60 mg Oral cpDR 1 cap once daily 9. Depakote ER 500 mg ER one tab in AM and two at HS Oral Tb24 1 tab 10. dexamethasone sodium phos (PF) 10 mg/mL injection soln 1 mL At onset of adrenal crisis 11. Flovent 110 mcg/actuation Inhl aero 1 puff 2 times per day 12. folic acid 1 mg Oral tab 5 tab once daily 13. glucosamine-chondroitin 500-400 mg oral tab 3 tab nightly 14. Imodium A-D 2 mg oral tab 2 tabs 15. Kineret 100 mg/0.67 mL subcutaneous syrg daily PRN 16. levothyroxine 75 mcg Oral cap 1 cap once daily 17. lisinopril 5 mg Oral tab 2 tabs once daily 18. Mag 64 64 mg oral tab 1 tab daily 19. methotrexate sodium 2.5 mg Oral tab 6 tabs every Sunday 20. mirtazapine 30 mg Oral TbDL nightly 21. Mobic 15 mg oral tab 1 tab once daily 22. multivitamin Oral tab 1 tab daily 23. Nexium 40 mg Oral cpDR 1 cap once daily 24. potassium chloride 10 mEq Oral cpER 2 caps once daily 25. ProAir HFA 90 mcg/actuation inhalation HFAA 1 puff as needed 26. sulfasalazine 500 mg Oral tab 2 tab three times a day 27. Tigan 300 mg Oral cap BID PRN 28. Tylenol 500mg Oral 1 tab as needed 29. Vitamin D Oral 1000 unit daily couple weeks ago 30. voltaren gel as needed 31. Xalatan 0.005 % Opht drop 1 drop once daily 32. Zebeta 10 mg oral tab 2 tabs once daily 33. Zofran (as hydrochloride) 8 mg Oral tab 1 tab every 6 hours as needed 34. hydroxyzine HCl 25 mg Oral tab as needed - PMHx: adrenal crisis; adrenal insufficiency; Asthma; benign mitral valve prolapse; chronic anemia; Colitis; Fibromyalgia; GERD; Hypertension; Hypothyroidism; IBS; juvenile arthritis; Lupus; Migraines; neuropathy; Seizures; - PSHx: Knee surgery- Left; left great toe; right wrist; - Social history: Smoking status: Patient states former smoker of tobacco. No barriers to communication noted, The patient speaks fluent Turkish. - Family history: Not pertinent. - : The pt / caregiver states he / she is not on anticoagulants. Home medication list is obtained from the patient. - Exposure Risk Screening:: None identified. RELATIONSHIP ADVISOR: 06/09 16:45 LMP 05/22/2016 rs3 Vital Signs: 16:36 BP 137 / 60; Pulse 120; Resp 18 S; Temp 98.2(O); Pulse Ox 100% on R/A; Weight 55.79 kg dd6 / 123 lbs (R); Height 5 ft. 0 in. (152.40 cm) (R); 18:07 BP 130 / 67 (auto/); ttb 18:08 Pulse 112 MON; Resp 18 S; Pulse Ox 98% on R/A; ttb 18:58 BP 147 / 88 (auto/); ttb 18:59 Pulse 118 MON; Pulse Ox 97% on R/A; ttb 19:27 Pulse 110 MON; Resp 18 S; Pulse Ox 98% on R/A; ttb 19:28 BP 134 / 68 (auto/); ttb 19:30 Resp 18 S; ttb 19:57 Pulse 112 MON; Resp 18 S; Pulse Ox 97% on R/A; ttb 19:58 BP 134 / 64 (auto/); ttb 20:28 BP 126 / 66 (auto/); ttb 20:28 Pulse 110 MON; Pulse Ox 98% ; ttb 22:44 BP 131 / 81 LA Sitting (auto/reg); Pulse 119 MON; Resp 22 S; Temp 99.3(TE); Pulse Ox cln 99% on R/A; Pain 8/10; 16:36 Body Mass Index 24.02 (55.79 kg, 152.40 cm) dd6 MDM: 18:11 IV Saline Lock ordered. br1 18:12 CBC with Diff Ordered. EDMS 18:12 BMP Ordered. EDMS 18:44 Sewer Pipe Press Operator/Pulse Ox/q 30 min VS ordered. br1 18:45 Seizure Precautions ordered. br1 18:46 ECG WITH READING ER PHYS+CARDIAG ordered. EDMS 18:46 CT Head Without Contrast Ordered. EDMS 18:46 CT Spine,Cervical W/o Contrast Ordered. EDMS 18:46 CT Spine,Thoracic W/o Contrast Ordered. EDMS 18:46 CT Spine, Lumbar W/o Contrast Ordered. EDMS 18:47 morphine 2 mg IVP once ordered. br1 19:05 Financial registration complete. zo 19:06 [facility] Payment Agreement was scanned into [employer] and attached to record. zo 19:18 Transition of care: After a detail discussion of the patient's case, care is br1 transferred to ED Physician, Dr. Morley. 19:21 VALPROIC ACID (DEPAKOTE) Ordered. EDMS 19:39 DIFFERENTIAL NO CHARGE Ordered. EDMS 22:19 CBC with Diff Reviewed. cs11 22:19 VALPROIC ACID (DEPAKOTE) Reviewed. cs11 22:19 BMP Reviewed. cs11 22:19 PLATELET ESTIMATE Reviewed. cs11 22:19 CT Head Without Contrast Reviewed. cs11 22:19 CT Spine,Cervical W/o Contrast Reviewed. cs11 22:19 CT Spine,Thoracic W/o Contrast Reviewed. cs11 22:19 CT Spine, Lumbar W/o Contrast Reviewed. cs11 22:[address] - Divalproex Sodium Delayed Release Tablet 500 mg PO once ordered. cs11 06/10 13:01 T-Sheet-- Draft Copy was scanned into [employer] and attached to record. gb 13: ECG/EKG was scanned into [employer] and attached to record. gb Administered Medications: 06/09 19:05 Drug: morphine 2 mg [morphine 2 mg/mL intravenous cartridge (1 mL)] Route: IVP; Site: ld5 right forearm; 19:30 Follow up: Resp 18 bpm Spontaneous; Response: No Adverse Reaction ttb 22:57 Follow up: Response: Confirmed pt not driving. ttb 22:52 Drug: Depakote DR - Divalproex Sodium 500 mg [divalproex 250 mg tablet,delayed release ttb (2 tabs)] Route: PO; Signatures: Dispatcher [employer] EDMS Radha Bernardo, Reg Reg gb Montrell Cochran Brian, MD MD br1 Serene Jose RN RN rs3 Cornell Morley DO DO cs11 Rivka Campbell RN RN ttb Dickerson, Laura RN ld5 The chart was reviewed and I authenticate all verbal orders and agree with the evaluation and treatment provided.Corrections: (The following items were deleted from the chart) 19:19 18:45 VALPROIC ACID (DEPAKOTE)+LAB ordered. EDMS EDMS Attachments: 19:06 [facility] Payment Agreement zo 06/10 13:01 T-Sheet-- Draft Copy gb 13: ECG/EKG gb Chart Complete MTDD
--- NOTE | 2016-06-11 23:59 | EDDOCDS ---
Nurse's Notes [facility] Name: Demi Patterson Age: 40 yrs Sex: Female : 1975 Arrival Date: 06/09/2016 Time: 16:35 Bed 8 Private MD: Fredo Patel Diagnosis: Epilepsy and recurrent seizures;Patient's unintentional underdosing of medication regimen Presentation: 06/09 16:39 Presenting complaint: Patient states: had 3 seizures since this morning, found herself rs3 on the floor. reports of dizziness. Adult Sepsis Screening: The patient does not have new or worsening altered mentation. Patient's respiratory rate is less than 22. Systolic blood pressure is greater than 100. Patient has a qSOFA score of 0- Negative Sepsis Screen. Suicide/Homicide risk assessment- the patient denies having any suicidal and/or homicidal ideations and does not present with any other emotional, behavioral or mental health complaints. Status: Patient is not a director of women's services or dependent. Transition of care: patient was not received from another setting of care. 16:39 Acuity: EULA Level 3 rs3 16:39 Method Of Arrival: Wheelchair rs3 Triage Assessment: 16:45 General: Appears in no apparent distress. Pain: Location: back. HIV screening NA for rs3 this visit Offered previously. 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 albuterol sulfate 2.5 mg /3 mL (0.083 %) Inhl HFAA 3 mL prn 2. bactroban cream 2% 3. Betoptic S 0.25 % Opht drps 1 drop 2 times per day 4. bisoprolol fumarate 10 mg oral tab 1 tab once daily 5. Citracal 200 mg (950 mg) Oral tab 4 tab daily 6. Cortef 30 mg oral tab 2 tabs once daily 7. Cortef 10 mg oral tab 1 tab nightly 8. Cymbalta 60 mg Oral cpDR 1 cap once daily 9. Depakote ER 500 mg ER one tab in AM and two at HS Oral Tb24 1 tab 10. dexamethasone sodium phos (PF) 10 mg/mL injection soln 1 mL At onset of adrenal crisis 11. Flovent 110 mcg/actuation Inhl aero 1 puff 2 times per day 12. folic acid 1 mg Oral tab 5 tab once daily 13. glucosamine-chondroitin 500-400 mg oral tab 3 tab nightly 14. Imodium A-D 2 mg oral tab 2 tabs 15. Kineret 100 mg/0.67 mL subcutaneous syrg daily PRN 16. levothyroxine 75 mcg Oral cap 1 cap once daily 17. lisinopril 5 mg Oral tab 2 tabs once daily 18. Mag 64 64 mg oral tab 1 tab daily 19. methotrexate sodium 2.5 mg Oral tab 6 tabs every Sunday 20. mirtazapine 30 mg Oral TbDL nightly 21. Mobic 15 mg oral tab 1 tab once daily 22. multivitamin Oral tab 1 tab daily 23. Nexium 40 mg Oral cpDR 1 cap once daily 24. potassium chloride 10 mEq Oral cpER 2 caps once daily 25. ProAir HFA 90 mcg/actuation inhalation HFAA 1 puff as needed 26. sulfasalazine 500 mg Oral tab 2 tab three times a day 27. Tigan 300 mg Oral cap BID PRN 28. Tylenol 500mg Oral 1 tab as needed 29. Vitamin D Oral 1000 unit daily couple weeks ago 30. voltaren gel as needed 31. Xalatan 0.005 % Opht drop 1 drop once daily 32. Zebeta 10 mg oral tab 2 tabs once daily 33. Zofran (as hydrochloride) 8 mg Oral tab 1 tab every 6 hours as needed 34. hydroxyzine HCl 25 mg Oral tab as needed - PMHx: adrenal crisis; adrenal insufficiency; Asthma; benign mitral valve prolapse; chronic anemia; Colitis; Fibromyalgia; GERD; Hypertension; Hypothyroidism; IBS; juvenile arthritis; Lupus; Migraines; neuropathy; Seizures; - PSHx: Knee surgery- Left; left great toe; right wrist; - Social history: Smoking status: Patient states former smoker of tobacco. No barriers to communication noted, The patient speaks fluent Israeli. - Family history: Not pertinent. - : The pt / caregiver states he / she is not on anticoagulants. Home medication list is obtained from the patient. - Exposure Risk Screening:: None identified. Screenin:40 Screening information is obtained from the patient. Fall risk: No risks identified. ttb Assistance ADL's: requires no assistance with activities of daily living. Abuse/DV Screen: The patient / caregiver reports he/she is: not in a situation that causes fear, pain or injury. Nutritional screening: No deficits noted. Advance Directives: Currently, there is no health care proxy. home support is adequate. Assessment: 17:38 General: pt sitting on stretcher on laptop. NAD noted. Answering questions ttb appropriately. NAD noted.. 17:40 General: Appears in no apparent distress, well nourished, Behavior is appropriate for ttb age, cooperative, pleasant. Pain: Location: lower back. Neurological: Level of Consciousness is awake, alert, Oriented to person, place, time, Moves all extremities. Speech is normal, Facial symmetry appears normal, Denies weakness blurred vision numbness headache Reports Back Pain dizziness. Neurological: Reports seizures : one "this morning sometime and another a couple hours ago".. Cardiovascular: Chest pain is denied. Respiratory: No deficits noted. Airway is patent Respiratory effort is even, unlabored, Respiratory pattern is regular, symmetrical, Denies cough, shortness of breath. GI: Denies nausea, vomiting, pain. Derm: Skin is normal. Injury Description: No known injury. 18:30 General: MD in with pt at this time. . ttb 19:23 Reassessment: Patient appears in no apparent distress at this time. pt continues to sit ttb on stretcher, typing on computer. NAD noted.. 19:30 Adult Sepsis Screening: The patient does not have new or worsening altered mentation. ttb Patient's respiratory rate is less than 22. Systolic blood pressure is greater than 100. Patient has a qSOFA score of 0- Negative Sepsis Screen. 20:30 General: Appears in no apparent distress, comfortable. General: pt ambulated to BR with ttb steady gait. Mother at bedside. Remains on computer on stretcher. SR on monitor. Pain:. 20:30 Adult Sepsis Screening: The patient does not have new or worsening altered mentation. ttb Patient's respiratory rate is less than 22. Systolic blood pressure is greater than 100. Patient has a qSOFA score of 0- Negative Sepsis Screen. 21:30 Reassessment: Patient appears in no apparent distress at this time. pt resting on ttb stretcher. NAD noted. On laptop. Mother at bedside. . 21:30 Neurological: Level of Consciousness is awake, alert. Cardiovascular: Rhythm is sinus ttb rhythm Chest pain is denied. Respiratory: No deficits noted. Airway is patent Respiratory effort is even, unlabored, Denies cough, shortness of breath. 22:30 Reassessment: Patient appears in no apparent distress at this time. Patient states ttb feeling better. pt ready for DC. Pain remains to mid back, however improved. . 22:30 General: Appears in no apparent distress, comfortable. Neurological: Level of ttb Consciousness is awake, alert. Respiratory: No deficits noted. Vital Signs: 16:36 BP 137 / 60; Pulse 120; Resp 18 S; Temp 98.2(O); Pulse Ox 100% on R/A; Weight 55.79 kg dd6 (R); Height 5 ft. 0 in. (152.40 cm) (R); 18:07 BP 130 / 67 (auto/); ttb 18:08 Pulse 112 MON; Resp 18 S; Pulse Ox 98% on R/A; ttb 18:58 BP 147 / 88 (auto/); ttb 18:59 Pulse 118 MON; Pulse Ox 97% on R/A; ttb 19:27 Pulse 110 MON; Resp 18 S; Pulse Ox 98% on R/A; ttb 19:28 BP 134 / 68 (auto/); ttb 19:30 Resp 18 S; ttb 19:57 Pulse 112 MON; Resp 18 S; Pulse Ox 97% on R/A; ttb 19:58 BP 134 / 64 (auto/); ttb 20:28 BP 126 / 66 (auto/); ttb 20:28 Pulse 110 MON; Pulse Ox 98% ; ttb 22:44 BP 131 / 81 LA Sitting (auto/reg); Pulse 119 MON; Resp 22 S; Temp 99.3(TE); Pulse Ox cln 99% on R/A; Pain 8/10; 16:36 Body Mass Index 24.02 (55.79 kg, 152.40 cm) dd6 Vitals: 16:36 Log In Time: June 09, 2016 at 16:34. dd6 ED Course: 16:36 Patient visited by Davy Roman PCA. dd6 16:36 Fredo Patel is Private Physician. dd6 16:36 Patient moved to Waiting dd6 16:37 Patient moved to Pre RCE dd6 16:40 Triage Initiated rs3 17:18 Patient moved to 8 ct3 17:40 The patient / caregiver is instructed regarding the plan of care and ED course. Patient ttb has correct armband on for positive identification. Placed in gown. Call light in reach. monitoring manager on. Pulse ox on. NIBP on. 17:44 Patient visited by Rivka Campbell RN. ttb 18:02 Patient visited by Rivka Campbell RN. ttb 18:09 Patient visited by Rivka Campbell RN. ttb 18:37 Nelson Eric MD is Attending Physician. br1 18:43 Patient visited by Nelson Eric MD. br1 18:47 Patient visited by Rivka Campbell RN. ttb 19:04 Seizure precautions initiated. ld5 19:04 Inserted saline lock: 20 gauge in right forearm by Starr Wei RN. ld5 19:05 Patient visited by Beatriz Ashley RN. ld5 19:06 [facility] Payment Agreement was scanned into [employer] and attached to record. zo 19:21 Patient visited by Hemalatha Guaman PCA. jb5 19:21 Patient visited by Hemalatha Guaman PCA. jb5 19:21 EKG done. (by ED staff). Reviewed by Cornell Morley DO. jb5 19:25 Patient visited by Rivka Campbell RN. ttb 19:26 VALPROIC ACID (DEPAKOTE) Sent. cp1 19:30 Attending Physician role handed off by Nelson Eric MD cs11 19:30 Cornell Morley DO is Attending Physician. cs11 19:41 DIFFERENTIAL NO CHARGE Sent. ttb 20:15 Patient visited by Rivka Campbell RN. ttb 20:17 Patient visited by Rivka Campbell RN. ttb 21:05 Patient visited by Rivka Campbell RN. ttb 21:21 CT Head Without Contrast Returned. EDMS 21:21 CT Spine,Cervical W/o Contrast Returned. EDMS 21:21 CT Spine, Lumbar W/o Contrast Returned. EDMS 21:21 CT Spine,Thoracic W/o Contrast Returned. EDMS 22:24 Fredo Patel is Referral Physician. cs11 22:30 Discontinued IV lock intact, bleeding controlled, pressure dressing applied, No ttb redness/swelling at site. No procedures done that require assistance. 22:45 Patient visited by Prachi Sierra PCA. cln 06/10 08:42 EKG-ADULT Returned. EDMS 13:01 T-Sheet-- Draft Copy was scanned into [employer] and attached to record. gb 13:01 ECG/EKG was scanned into [employer] and attached to record. gb Administered Medications: 06/09 19:05 Drug: morphine 2 mg [morphine 2 mg/mL intravenous cartridge (1 mL)] Route: IVP; Site: ld5 right forearm; 19:30 Follow up: Resp 18 bpm Spontaneous; Response: No Adverse Reaction ttb 22:57 Follow up: Response: Confirmed pt not driving. ttb 22:52 Drug: Depakote DR - Divalproex Sodium 500 mg [divalproex 250 mg tablet,delayed release ttb (2 tabs)] Route: PO; Order Results: Lab Order: CBC with Diff; SPEC'M 06/09/16 19:04 Test: WHITE BLOOD COUNT; Value: 10.3; Range: 4.0-10.0; Abnormal: Above high normal; Units: K/mm3; Status: F Test: RED BLOOD COUNT; Value: 4.41; Range: 4.00-5.40; Units: M/mm3; Status: F Test: HEMOGLOBIN; Value: 11.4; Range: 12.0-16.0; Abnormal: Below low normal; Units: g/dl; Status: F Test: HEMATOCRIT; Value: 36.1; Range: 36.0-47.0; Units: %; Status: F Test: MEAN CORPUSCULAR VOLUME; Value: 82.0; Range: 80.0-96.0; Units: fl; Status: F Test: MEAN CORPUSCULAR HEMOGLOBIN; Value: 25.9; Range: 27.0-33.0; Abnormal: Below low normal; Units: pg; Status: F Test: MEAN CORPUSCULAR HGB CONC; Value: 31.6; Range: 32.0-36.5; Abnormal: Below low normal; Units: g/dl; Status: F Test: RED CELL DISTRIBUTION WIDTH; Value: 17.2; Range: 11.5-14.5; Abnormal: Above high normal; Units: %; Status: F Test: PLATELET COUNT, AUTOMATED; Value: 326; Range: 150-450; Units: k/mm3; Status: F Test: NEUTROPHILS; Value: 82; Range: 35-75; Abnormal: Above high normal; Units: %; Status: F Test: LYMPHOCYTES; Value: 11; Range: 16-52; Abnormal: Below low normal; Units: %; Status: F Test: MONOCYTES; Value: 7; Range: 0-8; Units: %; Status: F Test: HYPOCHROMASIA; Value: 2+; Status: F Test: ANISOCYTOSIS; Value: 2+; Status: F Lab Order: [facility]; SPEC'M 06/09/16 19:48 Test: GLUCOSE, FASTING; Value: 86; Range: 70-105; Units: MG/DL; Status: F Test: BLOOD UREA NITROGEN; Value: 15; Range: 7-18; Units: MG/DL; Status: F Test: CREATININE FOR GFR; Value: 0.78; Range: 0.55-1.02; Units: MG/DL; Status: F Test: GLOMERULAR FILTRATION RATE; Value: > 60.0; Range: >60; Status: F Test: SODIUM LEVEL; Value: 138; Range: 136-145; Units: MEQ/L; Status: F Test: POTASSIUM SERUM; Value: 4.3; Range: 3.5-5.1; Units: MEQ/L; Status: F Test: CHLORIDE LEVEL; Value: 106; Range: 98-107; Units: MEQ/L; Status: F Test: CARBON DIOXIDE LEVEL; Value: 22; Range: 21-32; Units: MEQ/L; Status: F Test: ANION GAP; Value: 10; Range: 8-16; Units: MEQ/L; Status: F Test: CALCIUM LEVEL; Value: 9.4; Range: 8.5-10.1; Units: MG/DL; Status: F Test Note: ; Units are mL/min/1.73 m2 Chronic Kidney Disease Staging per NKF: Stage I & II GFR >=60 Normal to Mildly Decreased Stage III GFR 30-59 Moderately Decreased Stage IV GFR 15-29 Severely Decreased Stage V GFR <15 Very Little GFR Left ESRD GFR <15 on [employer]ISH [employer]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 Lab Order: VALPROIC ACID (DEPAKOTE); SPEC'M 06/09/16 19:48 Test: VALPROIC ACID (DEPAKOTE); Value: 28.7; Range: 50.0-100.0; Abnormal: Below low normal; Units: UG/ML; Status: F Lab Order: PLATELET ESTIMATE; SPEC'M 06/09/16 19:04 Test: PLATELET ESTIMATE; Value: NORMAL; Range: NORMAL; Status: F Radiology Order: EKG-ADULT Test: EKG-ADULT REASON FOR EXAMINATION: dysrhythmia; Stationary ECG Study; [facility] - ED; ; Test Date: 2016-06-09; Pat Name: DEMI PATTERSON Department:; Room: -; Gender: F 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 01/14/2016.; Technique: Multiple axial CT images were obtained through the head without administration of contrast; .; Findings: The ventricles and sulci are symmetric bilaterally. There is no evidence of acute hemorrhag; e or infarct. There is no midline shift, mass effect, or extra-axial fluid collection. The osseous st; ructures are unremarkable. The visualized paranasal sinuses and mastoid air cells are clear.; Impression: Negative study.; ; Radiology Order: CT Spine,Cervical W/o Contrast Test: CT Spine,Cervical W/o Contrast REASON FOR EXAMINATION: Trauma; ; CT of the cervical spine; Clinical history: Pain. Seizure.; Technique: Multiple axial CT images were obtained through the cervical spine without administration o; f contrast. Coronal and sagittal 3-D reconstructed images were also obtained.; Comparison: None.; Findings:; The cervical vertebral bodies are in satisfactory positioning and alignment. No fractures or dislocat; ions are demonstrated. The odontoid process is intact. Intervertebral disc spaces are well-maintained; . Minimal facet arthropathy is seen at C4/C5. There is no evidence of facet subluxation. The neural f; oramen appear grossly patent. The cervical cranial junction is intact. The cervical spinal canal demo; nstrates normal caliber and contour without evidence of spinal stenosis. The surrounding soft tissues; are within normal limits.; Impression: Unremarkable CT examination of the cervical spine. Minimal spondylosis.; ; Radiology Order: CT Spine,Thoracic W/o Contrast Test: CT Spine,Thoracic W/o Contrast REASON FOR EXAMINATION: Trauma; ; CT of the thoracic spine without contrast; Clinical history: Pain.; Technique: Multiple axial CT images were obtained through the thoracic spine without administration o; f contrast. Coronal and sagittal 3-D reconstructed images were also obtained.; Findings:; The vertebral bodies are in satisfactory positioning and alignment. No fractures or dislocations are; demonstrated. Intervertebral disc spaces are well-maintained. There is no evidence of facet subluxati; on. The neural foramen appear grossly patent. The spinal canal demonstrates normal caliber and contou; r without evidence of spinal stenosis. The surrounding soft tissues are within normal limits.; Impression: No acute traumatic injury; ; Radiology Order: CT Spine, Lumbar W/o Contrast Test: CT Spine, Lumbar W/o Contrast REASON FOR EXAMINATION: Trauma; ; CT of the lumbar spine without contrast; Clinical history: Pain.; Technique: Multiple axial CT images were obtained through the lumbar spine without administration of; contrast. Coronal and sagittal 3-D reconstructed images were also obtained.; Findings:; The lumbar vertebral bodies are in satisfactory positioning and alignment. No fractures or dislocatio; ns are demonstrated. Intervertebral disc spaces are well-maintained. Minimal facet arthropathy is see; n bilaterally at L5/S1. There is no evidence of facet subluxation. The neural foramen appear grossly; patent. The spinal canal demonstrates normal caliber and contour without evidence of spinal stenosis.; The surrounding soft tissues are within normal limits.; Impression: No acute fracture or traumatic injury. Mild facet arthropathy is seen bilaterally at L5/S; 1.; ; Outcome: 22:26 Discharge ordered by Provider. 11 22:30 Discharge Assessment: Patient awake, alert and oriented x 3. No cognitive and/or ttb functional deficits noted. Patient verbalized understanding of disposition instructions. Patient awake and alert. patient administered narcotics - yes. Pt provided with safe discharge. The following High Risk Discharge criteria are identified: None. Discharged to home ambulatory, with parent. Condition: good Condition: stable Condition: improved. Discharge instructions given to patient, parents Instructed on discharge instructions, follow up and referral plans. medication usage, no driving heavy equipment, no drinking with medication, Demonstrated understanding of instructions, medications, no d/d with narcs Pt was receptive of discharge instructions/ teaching. CT Study completed. Property :Personal belongings accompany Pt. 22:57 Patient left the ED. ttb Signatures: Dispatcher [employer] EDMS Radha Bernardo, Reg Reg gb Hemalatha Guaman, CRANE FOLLOWER CRANE FOLLOWER jb5 Montrell Cochran Brian, MD MD br1 Davy Roman, CRANE FOLLOWER CRANE FOLLOWER dd6 Serene Jose RN RN rs3 Aditi Mendoza,DIRECTOR OF ROOMS DIRECTOR OF ROOMS cp1 Beatriz Ashley RN RN ld5 Elizabeth Mclaughlin, CRANE FOLLOWER CRANE FOLLOWER ct3 Cornell Morley, DO cs11 Rivka Campbell RN RN ttb Prachi Sierra, CRANE FOLLOWER CRANE FOLLOWER cln Corrections: (The following items were deleted from the chart) 22:55 21:30 Adult Sepsis Screening: The patient does not have new or worsening altered ttb mentation. Patient's respiratory rate is less than 22. Systolic blood pressure is greater than 100. Patient has a qSOFA score of 0- Negative Sepsis Screen. ttb Chart Complete MTDD
== END 2016-06-09 22:57 | disposition home or self-care (01) ==
LOC: M ED 16:35
DX: G40.909 Epilepsy, unspecified, not intractable, without status epilepticus (principal); I10 Essential (primary) hypertension; J45.909 Unspecified asthma, uncomplicated; D68.62 Lupus anticoagulant syndrome; K21.9 Gastro-esophageal reflux disease without esophagitis; E03.9 Hypothyroidism, unspecified; M79.7 Fibromyalgia; G43.909 Migraine, unspecified, not intractable, without status migrainosus; K58.9 Irritable bowel syndrome, unspecified; E27.2 Addisonian crisis; I34.1 Nonrheumatic mitral (valve) prolapse; D64.9 Anemia, unspecified; Z87.19 Personal history of other diseases of the digestive system; G62.9 Polyneuropathy, unspecified; M08.90 Juvenile arthritis, unspecified, unspecified site; Z79.899 Other long term (current) drug therapy; Z79.52 Long term (current) use of systemic steroids; Z88.2 Allergy status to sulfonamides; Z88.5 Allergy status to narcotic agent; Z88.6 Allergy status to analgesic agent; Z88.8 Allergy status to other drugs, medicaments and biological substances; Z87.891 Personal history of nicotine dependence

== ENCOUNTER 2016-06-22 17:26 | Emergency (ER) | payer MEDICAID, OTHER ==
[2016-06-22] MEDS ORDERED: ONDANSETRON 4MG/2ML VIAL (J2405) As Ordered ONE (19:06)
[2016-06-22] MEDS ORDERED: HYDROmorphone HCL 1 MG/ML SYRINGE (J1170) As Ordered ONE (19:06)
[2016-06-22 20:13] LABS: BASO % 0.2 % (0.0-1.0); EOS # 0.1 K/mm3 (0.0-0.50); EOS % 0.8 % (0.0-3.0); LARGE UNSTAINED CELL # 0.2 K/mm3 (0.0-0.4); LARGE UNSTAINED CELL % 1.9 % (0.0-4.0); LYMPH % 11.7 % (24.0-44.0); MEAN CORPUSCULAR HEMOGLOBIN 25.1 pg (27.0-33.0); MEAN CORPUSCULAR HGB CONC 31.6 g/dl (32.0-36.5); MEAN CORPUSCULAR VOLUME 79.5 fl (80.0-96.0); MONO # 0.5 K/mm3 (0.0-0.8); MONO % 5.3 % (0.0-5.0); NEUTROPHILS # 6.7 K/mm3 (1.8-7.7); NEUTROPHILS % 80.1 % (36.0-66.0); PLATELET COUNT, AUTOMATED 336 k/mm3 (150-450); RED CELL DISTRIBUTION WIDTH 15.5 % (11.5-14.5); WHITE BLOOD COUNT 8.4 K/mm3 (4.0-10.0)
[2016-06-22 20:36] LABS: ALBUMIN 3.5 GM/DL (3.2-5.2); ALBUMIN/GLOBULIN RATIO 0.83 (1.00-1.93); ALKALINE PHOSPHATASE 70 U/L (45-117); ALT/SGPT 15 U/L (12-78); ANION GAP 11 MEQ/L (8-16); AST/SGOT 16 U/L (15-37); BILIRUBIN,DIRECT < 0.1 MG/DL (0.0-0.2); BILIRUBIN,TOTAL 0.3 MG/DL (0.2-1.0); BLOOD UREA NITROGEN 14 MG/DL (7-18); CALCIUM LEVEL 9.1 MG/DL (8.5-10.1); CARBON DIOXIDE LEVEL 22 MEQ/L (21-32); CHLORIDE LEVEL 107 MEQ/L (98-107); CREATININE FOR GFR 0.85 MG/DL (0.55-1.02); GLOMERULAR FILTRATION RATE > 60.0 (>60); GLUCOSE, FASTING 85 MG/DL (70-105); SODIUM LEVEL 140 MEQ/L (136-145); TOTAL PROTEIN 7.7 GM/DL (6.4-8.2)
[2016-06-22] MEDS ORDERED: BACTRIM 160MG/800MG DS TAB As Ordered ONE (22:37)
--- NOTE | 2016-06-22 23:01 | EDDOCDS ---
Physician Documentation [facility] Name: Demi Burger Age: 40 yrs Sex: Female : 1975 Arrival Date: 06/22/2016 Time: 17:26 Bed I3 / M3 Private MD: Fredo Patel Disposition: 06/22/16 22:28 Discharged to Home/Self Care. Impression: Cellulitis of buttock - right, Nausea and vomiting, Generalized abdominal pain - chronic. - Condition is Stable. - Discharge Instructions: Cellulitis, Nausea and Vomiting. - Prescriptions for Bactrim DS 800- 160 mg Oral Tablet - take 2 tablet by ORAL route every 12 hours for 7 days; 28 tablet. - Local Pharmacy Hours, Medication Reconciliation form. - Follow up: Fredo Patel; When: Call to arrange an appointment; Reason: Wound/Symptom Recheck, Recheck today's complaints, Worsening of conditions, Continuance of care. - Problem is an acute exacerbation. - Symptoms have improved. Historical: - Allergies: Aspirin (Hematuria); Bentyl ("feels like i want to pull my skin off"); Biaxin (Rash); GOLD SALTS (Hematuria); Ibuprofen (Hematuria); Toradol (Hematuria); Ultram (Seizures); Wellbutrin (Seizures); - Home Meds: 1. albuterol sulfate 2.5 mg /3 mL (0.083 %) Inhl HFAA 3 mL prn 2. bactroban cream 2% as needed 3. Betoptic S 0.25 % Opht drps 1 drop 2 times per day 4. bisoprolol fumarate 10 mg oral tab 1 tab once daily 5. Citracal 200 mg (950 mg) Oral tab 4 tab daily 6. Cortef 30 mg oral tab 2 tabs once daily 7. Cortef 10 mg oral tab 1 tab nightly 8. Cymbalta 60 mg Oral cpDR 1 cap once daily 9. Depakote ER 500 mg ER one tab in AM and two at HS Oral Tb24 1 tab 10. dexamethasone sodium phos (PF) 10 mg/mL injection soln 1 mL At onset of adrenal crisis 11. Flovent 110 mcg/actuation Inhl aero 1 puff 2 times per day 12. folic acid 1 mg Oral tab 5 tab once daily 13. glucosamine-chondroitin 500-400 mg oral tab 3 tab nightly 14. hydroxyzine HCl 25 mg Oral tab as needed 15. Imodium A-D 2 mg oral tab 2 tabs 16. Kineret 100 mg/0.67 mL subcutaneous syrg daily PRN 17. levothyroxine 75 mcg Oral cap 1 cap once daily 18. lisinopril 5 mg Oral tab 2 tabs once daily 19. Mag 64 64 mg oral tab 1 tab daily 20. mirtazapine 30 mg Oral TbDL nightly 21. Mobic 15 mg oral tab 1 tab once daily 22. Nexium 40 mg Oral cpDR 1 cap once daily 23. potassium chloride 10 mEq Oral cpER 2 caps once daily 24. ProAir HFA 90 mcg/actuation inhalation HFAA 1 puff as needed 25. sulfasalazine 500 mg Oral tab 2 tab three times a day 26. Tylenol 500mg Oral 1 tab as needed 27. Vitamin D Oral 1000 unit daily couple weeks ago 28. voltaren gel as needed 29. Xalatan 0.005 % Opht drop 1 drop once daily 30. methotrexate sodium 2.5 mg Oral tab 6 tabs every Sunday 31. Tigan 300 mg Oral cap BID PRN 32. Zofran (as hydrochloride) 8 mg Oral tab 1 tab every 6 hours as needed 33. Zebeta 10 mg oral tab 2 tabs once daily 34. multivitamin Oral tab 1 tab daily 35. Rozerem 8 mg oral tab 1 tab once daily HS - PMHx: adrenal crisis; adrenal insufficiency; Asthma; benign mitral valve prolapse; chronic anemia; Colitis; Fibromyalgia; GERD; Hypertension; Hypothyroidism; IBS; juvenile arthritis; Lupus; Migraines; neuropathy; Seizures; - PSHx: Knee surgery- Left; left great toe; right wrist; - Social history: Smoking status: Patient states was never smoker of tobacco. No barriers to communication noted, The patient speaks fluent Welsh, Speaks appropriately for age. - Family history: Not pertinent. - : The pt / caregiver states he / she is not on anticoagulants. Home medication list is obtained from the patient. - Exposure Risk Screening:: None identified. 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 0 in. (152.40 cm) (R); Pain 8/10; 20:55 BP 122 / 66; Pulse 107; Resp 18; Temp 99.5(O); Pulse Ox 99% on R/A; Pain 7/10; ld5 22:39 BP 138 / 76; Pulse 111; Resp 16; Temp 99.5; Pulse Ox 99% ; ajs 17:28 Body Mass Index 24.02 (55.79 kg, 152.40 cm) elp MDM: 18:51 NS 0.9% 1000 ml IV at bolus once ordered. cc10 18:51 Ondansetron 4 mg IVP once ordered. cc10 18:51 IV Saline Lock ordered. cc10 18:51 Undress patient appropriately for examination ordered. cc10 18:51 Dilaudid - HYDROmorphone 0.5 mg IVP once ordered. cc10 18:52 Basic Metabolic Profile Ordered. EDMS 18:52 CBC with Diff Ordered. EDMS 18:52 Lipase Ordered. EDMS 18:52 Liver Profile Ordered. EDMS 18:52 Urinalysis Ordered. EDMS 18:53 NOTHING BY MOUTH+DIET ordered. EDMS 20:15 Financial registration complete. zo 20:49 [facility] Payment Agreement was scanned into [employer] and attached to record. zo 21:01 CBC with Diff Reviewed. cc10 21:01 Liver Profile Reviewed. cc10 21:01 Urinalysis Reviewed. cc10 21:01 Basic Metabolic Profile Reviewed. cc10 21:01 Lipase Reviewed. cc10 22:32 Trimethoprim-Sulfamethoxazole (MRSA dose) 160 mg-800 mg (DS) 2 tabs PO once ordered. cc10 Administered Medications: 19:42 Drug: NS 0.9% 1000 ml [sodium chloride 0.9 % intravenous solution] Route: IV; Rate: ld5 bolus; Site: left hand; 22:57 Follow up: IV Status: Completed infusion; IV Intake: 1000ml ld5 19:42 Drug: Ondansetron 4 mg [ondansetron HCl 2 mg/mL intravenous solution (2 mL)] Route: ld5 IVP; Site: left hand; 20:56 Follow up: Response: Nausea is decreased ld5 19:42 Drug: Dilaudid - HYDROmorphone 0.5 mg [hydromorphone 1 mg/mL injection syringe (0.5 ld5 mL)] Route: IVP; Site: left hand; 20:55 Follow up: BP 122 / 66; Pulse 107 bpm; Resp 18 bpm; Temp 99.5 Oral; Pulse Ox 99% RA; ld5 Pain 11/27 Adult; Response: Confirmed pt not driving.; Pain is decreased 22:57 Drug: Trimethoprim-Sulfamethoxazole (MRSA dose) 2 tabs [sulfamethoxazole 800 ld5 mg-trimethoprim 160 mg tablet (2 tabs)] Route: PO; Signatures: Dispatcher [employer] Jenni Cruz,RN RN jo3 Montrell Cochran Laura, RN RN ld5 Kenneth Gutierrez PA-C PARossC cc10 The chart was reviewed and I authenticate all verbal orders and agree with the evaluation and treatment provided.Attachments: 20:49 [facility] Payment Agreement zo MTDD
--- NOTE | 2016-06-22 23:01 | EDDOCDS ---
Nurse's Notes [facility] Name: Demi Burger Age: 40 yrs Sex: Female : 1975 Arrival Date: 06/22/2016 Time: 17:26 Bed I3 / M3 Private MD: Fredo Patel Diagnosis: Cellulitis of buttock-right;Nausea and vomiting;Generalized abdominal pain-chronic Presentation: 06/22 17:41 Presenting complaint: Patient states: "It all started when I was diagnosed with a sinus jo3 infection. I was given Azithromycin and kept getting worse Then I started getting abdominal pain and I'm dehydrated lópez I haven't been able to eat or drink anything and I've got a sore that needs to be checked out." Sore is located on pt's right buttock. Risk factors: the patient reports on menses. Adult Sepsis Screening: The patient does not have new or worsening altered mentation. Patient's respiratory rate is less than 22. Systolic blood pressure is greater than 100. Patient has a qSOFA score of 0- Negative Sepsis Screen. Suicide/Homicide risk assessment- the patient denies having any suicidal and/or homicidal ideations and does not present with any other emotional, behavioral or mental health complaints. Status: Patient is not a administrative services coordinator or dependent. Transition of care: patient was not received from another setting of care. 17:41 Acuity: EULA Level 3 jo3 17:41 Method Of Arrival: Walkin/Carried/Asstd jo3 Triage Assessment: 17:47 General: Appears in no apparent distress, Behavior is appropriate for age, cooperative. jo3 Pain: Pain currently is 9 out of 10 on a pain scale. HIV screening NA for this visit Offered previously. Neurological: Level of Consciousness is awake, alert, Oriented to person, place, time. Respiratory: Airway is patent Respiratory effort is even, unlabored. Derm: Skin is pink, warm & dry. 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 albuterol sulfate 2.5 mg /3 mL (0.083 %) Inhl HFAA 3 mL prn 2. bactroban cream 2% as needed 3. Betoptic S 0.25 % Opht drps 1 drop 2 times per day 4. bisoprolol fumarate 10 mg oral tab 1 tab once daily 5. Citracal 200 mg (950 mg) Oral tab 4 tab daily 6. Cortef 30 mg oral tab 2 tabs once daily 7. Cortef 10 mg oral tab 1 tab nightly 8. Cymbalta 60 mg Oral cpDR 1 cap once daily 9. Depakote ER 500 mg ER one tab in AM and two at HS Oral Tb24 1 tab 10. dexamethasone sodium phos (PF) 10 mg/mL injection soln 1 mL At onset of adrenal crisis 11. Flovent 110 mcg/actuation Inhl aero 1 puff 2 times per day 12. folic acid 1 mg Oral tab 5 tab once daily 13. glucosamine-chondroitin 500-400 mg oral tab 3 tab nightly 14. hydroxyzine HCl 25 mg Oral tab as needed 15. Imodium A-D 2 mg oral tab 2 tabs 16. Kineret 100 mg/0.67 mL subcutaneous syrg daily PRN 17. levothyroxine 75 mcg Oral cap 1 cap once daily 18. lisinopril 5 mg Oral tab 2 tabs once daily 19. Mag 64 64 mg oral tab 1 tab daily 20. mirtazapine 30 mg Oral TbDL nightly 21. Mobic 15 mg oral tab 1 tab once daily 22. Nexium 40 mg Oral cpDR 1 cap once daily 23. potassium chloride 10 mEq Oral cpER 2 caps once daily 24. ProAir HFA 90 mcg/actuation inhalation HFAA 1 puff as needed 25. sulfasalazine 500 mg Oral tab 2 tab three times a day 26. Tylenol 500mg Oral 1 tab as needed 27. Vitamin D Oral 1000 unit daily couple weeks ago 28. voltaren gel as needed 29. Xalatan 0.005 % Opht drop 1 drop once daily 30. methotrexate sodium 2.5 mg Oral tab 6 tabs every Sunday 31. Tigan 300 mg Oral cap BID PRN 32. Zofran (as hydrochloride) 8 mg Oral tab 1 tab every 6 hours as needed 33. Zebeta 10 mg oral tab 2 tabs once daily 34. multivitamin Oral tab 1 tab daily 35. Rozerem 8 mg oral tab 1 tab once daily HS - PMHx: adrenal crisis; adrenal insufficiency; Asthma; benign mitral valve prolapse; chronic anemia; Colitis; Fibromyalgia; GERD; Hypertension; Hypothyroidism; IBS; juvenile arthritis; Lupus; Migraines; neuropathy; Seizures; - PSHx: Knee surgery- Left; left great toe; right wrist; - Social history: Smoking status: Patient states was never smoker of tobacco. No barriers to communication noted, The patient speaks fluent Grenadian, Speaks appropriately for age. - Family history: Not pertinent. - : The pt / caregiver states he / she is not on anticoagulants. Home medication list is obtained from the patient. - Exposure Risk Screening:: None identified. Screenin:57 Screening information is obtained from the patient. Fall risk: No risks identified. ld5 Assistance ADL's: Requires assistance with meal preparation, this assistance is provided by family members, housework, assistance is provided by family members. Abuse/DV Screen: The patient / caregiver reports he/she is: not in a situation that causes fear, pain or injury. Nutritional screening: No deficits noted. Advance Directives: There is no active DNR order. home support is adequate. Assessment: 19:43 General: Appears in no apparent distress, Behavior is cooperative. Pain: Location: ld5 abdomen Pain currently is 9 out of 10 on a pain scale. Neurological: Level of Consciousness is awake, alert. Respiratory: Airway is patent Respiratory effort is even, unlabored. GI: Abdomen is non- distended Bowel sounds present X 4 quads. Abd is tender to palpation in left upper quadrant Reports nausea. Derm: Reports skin sore to buttocks. Per mother, sore is bigger and more red than previous times. 20:56 General: Pt reports decreased pain. Requesting something to drink. Resting comfortably ld5 in bed watching TV. Call tolentino within reach. Will continue to monitor. 22:00 General: Appears in no apparent distress, Behavior is cooperative. Pain: Pain currently ld5 is 6 out of 10 on a pain scale. Neurological: Level of Consciousness is awake, obeys commands. Respiratory: Airway is patent Respiratory effort is even, unlabored. 22:58 General: Appears in no apparent distress, Behavior is cooperative. Pain: Pain currently ld5 is 6 out of 10 on a pain scale. Respiratory: Airway is patent Respiratory effort is even, unlabored. Vital Signs: 17:28 BP 129 / 74; Pulse 120; Resp 20; Temp 99.4(O); Pulse Ox 99% on R/A; Weight 55.79 kg elp (R); Height 5 ft. 0 in. (152.40 cm) (R); Pain 8/10; 20:55 BP 122 / 66; Pulse 107; Resp 18; Temp 99.5(O); Pulse Ox 99% on R/A; Pain 7/10; ld5 22:39 BP 138 / 76; Pulse 111; Resp 16; Temp 99.5; Pulse Ox 99% ; ajs 17:28 Body Mass Index 24.02 (55.79 kg, 152.40 cm) el Vitals: 17:28 Log In Time: June 22, 2016 at 17:26. elp ED Course: 17:27 Patient visited by Irish Beth PCA. elp 17:27 Patient moved to Waiting elp 17:28 Fredo Patel is Private Physician. elp 17:29 Patient visited by Irish Beth PCA. elp 17:29 Patient moved to Pre RCE elp 17:44 Triage Initiated jo3 17:48 Patient visited by Jenni Puri RN. jo3 17:53 Patient moved to Triage 1 kcs 18:19 [facility] cc[facility] 18:19 Trever Gunter MD is Attending Physician. cc10 18:19 Patient visited by Kenneth Gutierrez PA-C. cc10 18:19 Patient visited by Kenneth Gutierrez PA-C. cc10 18:54 Patient moved to I3 / M3 kcs 18:55 Urinalysis Sent. ajs 19:45 Patient visited by Beatriz Ashley,GISELE. ld5 20:49 [facility] Payment Agreement was scanned into [employer] and attached to record. zo 20:57 The patient / caregiver is instructed regarding the plan of care and ED course. ld5 Accompanied by Family Member, Patient has correct armband on for positive identification. Placed in gown. Bed in low position. Call light in reach. 20:57 Inserted saline lock: 22 gauge in left hand by Mark Jovel RN. ld5 20:59 Patient visited by Beatriz Ashley,GISELE. ld5 22:09 Patient visited by Franci Thorne,GISELE. ms18 22:28 Fredo Patel is Referral Physician. cc10 22:39 Patient visited by Adenike Salcedo. ajs 22:58 Discontinued lock intact, bleeding controlled, pressure dressing applied, No ld5 redness/swelling at site. No procedures done that require assistance. 23:00 Patient visited by Beatriz Ashley RN. ld5 Administered Medications: 19:42 Drug: NS 0.9% 1000 ml [sodium chloride 0.9 % intravenous solution] Route: IV; Rate: ld5 bolus; Site: left hand; 22:57 Follow up: IV Status: Completed infusion; IV Intake: 1000ml ld5 19:42 Drug: Ondansetron 4 mg [ondansetron HCl 2 mg/mL intravenous solution (2 mL)] Route: ld5 IVP; Site: left hand; 20:56 Follow up: Response: Nausea is decreased ld5 19:42 Drug: Dilaudid - HYDROmorphone 0.5 mg [hydromorphone 1 mg/mL injection syringe (0.5 ld5 mL)] Route: IVP; Site: left hand; 20:55 Follow up: BP 122 / 66; Pulse 107 bpm; Resp 18 bpm; Temp 99.5 Oral; Pulse Ox 99% RA; ld5 Pain 7/10 Adult; Response: Confirmed pt not driving.; Pain is decreased 22:57 Drug: Trimethoprim-Sulfamethoxazole (MRSA dose) 2 tabs [sulfamethoxazole 800 ld5 mg-trimethoprim 160 mg tablet (2 tabs)] Route: PO; Intake: 22:57 IV: 1000.00ml; Total: 1000.00ml. ld5 Order Results: Lab Order: Basic Metabolic Profile; SPEC'M 06/22/16 20:00 Test: GLUCOSE, FASTING; Value: 85; Range: 70-105; Units: MG/DL; Status: F Test: BLOOD UREA NITROGEN; Value: 14; Range: 7-18; Units: MG/DL; Status: F Test: CREATININE FOR GFR; Value: 0.85; Range: 0.55-1.02; Units: MG/DL; Status: F Test: GLOMERULAR FILTRATION RATE; Value: > 60.0; Range: >60; Status: F Test: SODIUM LEVEL; Value: 140; Range: 136-145; Units: MEQ/L; Status: F Test: POTASSIUM SERUM; Value: 4.0; Range: 3.5-5.1; Units: MEQ/L; Status: F Test: CHLORIDE LEVEL; Value: 107; Range: 98-107; Units: MEQ/L; Status: F Test: CARBON DIOXIDE LEVEL; Value: 22; Range: 21-32; Units: MEQ/L; Status: F Test: ANION GAP; Value: 11; Range: 8-16; Units: MEQ/L; Status: F Test: CALCIUM LEVEL; Value: 9.1; Range: 8.5-10.1; Units: MG/DL; Status: F Test Note: ; Units are mL/min/1.73 m2 Chronic Kidney Disease Staging per NKF: Stage I & II GFR >=60 Normal to Mildly Decreased Stage III GFR 30-59 Moderately Decreased Stage IV GFR 15-29 Severely Decreased Stage V GFR <15 Very Little GFR Left ESRD GFR <15 on VACUUM CASTER Lab Order: CBC with Diff; SPEC'M 06/22/16 20:00 Test: WHITE BLOOD COUNT; Value: 8.4; Range: 4.0-10.0; Units: K/mm3; Status: F Test: RED BLOOD COUNT; Value: 4.44; Range: 4.00-5.40; Units: M/mm3; Status: F Test: HEMOGLOBIN; Value: 11.2; Range: 12.0-16.0; Abnormal: Below low normal; Units: g/dl; Status: F Test: HEMATOCRIT; Value: 35.3; Range: 36.0-47.0; Abnormal: Below low normal; Units: %; Status: F Test: MEAN CORPUSCULAR VOLUME; Value: 79.5; Range: 80.0-96.0; Abnormal: Below low normal; Units: fl; Status: F Test: MEAN CORPUSCULAR HEMOGLOBIN; Value: 25.1; Range: 27.0-33.0; Abnormal: Below low normal; Units: pg; Status: F Test: MEAN CORPUSCULAR HGB CONC; Value: 31.6; Range: 32.0-36.5; Abnormal: Below low normal; Units: g/dl; Status: F Test: RED CELL DISTRIBUTION WIDTH; Value: 15.5; Range: 11.5-14.5; Abnormal: Above high normal; Units: %; Status: F Test: PLATELET COUNT, AUTOMATED; Value: 336; Range: 150-450; Units: k/mm3; Status: F Test: NEUTROPHILS %; Value: 80.1; Range: 36.0-66.0; Abnormal: Above high normal; Units: %; Status: F Test: LYMPH %; Value: 11.7; Range: 24.0-44.0; Abnormal: Below low normal; Units: %; Status: F Test: MONO %; Value: 5.3; Range: 0.0-5.0; Abnormal: Above high normal; Units: %; Status: F Test: EOS %; Value: 0.8; Range: 0.0-3.0; Units: %; Status: F Test: BASO %; Value: 0.2; Range: 0.0-1.0; Units: %; Status: F Test: LARGE UNSTAINED CELL %; Value: 1.9; Range: 0.0-4.0; Units: %; Status: F Test: NEUTROPHILS #; Value: 6.7; Range: 1.8-7.7; Units: K/mm3; Status: F Test: LYMPH #; Value: 1.0; Range: 1.5-4.5; Abnormal: Below low normal; Units: K/mm3; Status: F Test: MONO #; Value: 0.5; Range: 0.0-0.8; Units: K/mm3; Status: F Test: EOS #; Value: 0.1; Range: 0.0-0.50; Units: K/mm3; Status: F Test: BASO #; Value: 0.0; Range: 0.0-0.2; Units: K/mm3; Status: F Test: LARGE UNSTAINED CELL #; Value: 0.2; Range: 0.0-0.4; Units: K/mm3; Status: F Lab Order: Lipase; SPEC'06/22/16 20:00 Test: LIPASE; Value: 163; Range: 73-393; Units: U/L; Status: F Lab Order: Liver Profile; SPEC'06/22/16 20:00 Test: AST/SGOT; Value: 16; Range: 15-37; Units: U/L; Status: F Test: ALT/SGPT; Value: 15; Range: 12-78; Units: U/L; Status: F Test: ALKALINE PHOSPHATASE; Value: 70; Range: 45-117; Units: U/L; Status: F Test: BILIRUBIN,TOTAL; Value: 0.3; Range: 0.2-1.0; Units: MG/DL; Status: F Test: BILIRUBIN,DIRECT; Value: < 0.1; Range: 0.0-0.2; Units: MG/DL; Status: F Test: TOTAL PROTEIN; Value: 7.7; Range: 6.4-8.2; Units: GM/DL; Status: F Test: ALBUMIN; Value: 3.5; Range: 3.2-5.2; Units: GM/DL; Status: F Test: ALBUMIN/GLOBULIN RATIO; Value: 0.83; Range: 1.00-1.93; Abnormal: Below low normal; Status: F Lab Order: Urinalysis; SPEC'M 06/22/16 18:54 Test: APPEARANCE, URINE; Value: CLOUDY; Range: CLEAR; Abnormal: Above high normal; Status: F Test: COLOR, URINE; Value: YELLOW; Range: YELLOW; Status: F Test: PH,URINE; Value: 5.0; Range: 5.0-9.0; Units: UNITS; Status: F Test: SPECIFIC GRAVITY URINE AUTO; Value: 1.024; Range: 1.002-1.035; Status: F Test: PROTEIN, URINE AUTO; Value: 2+; Range: NEGATIVE; Abnormal: Above high normal; Units: mg/dL; Status: F Test: GLUCOSE, URINE (UA) AUTO; Value: NEGATIVE; Range: NEGATIVE; Units: mg/dL; Status: F Test: KETONE, URINE AUTO; Value: 1+; Range: NEGATIVE; Abnormal: Above high normal; Units: mg/dL; Status: F Test: UROBILINOGEN, URINE AUTO; Value: 0.2; Range: 0.0-2.0; Units: mg/dL; Status: F Test: BILIRUBIN, URINE AUTO; Value: NEGATIVE; Range: NEGATIVE; Status: F Test: NITRITE, URINE AUTO; Value: NEGATIVE; Range: NEGATIVE; Status: F Test: LEUKOCYTE ESTERASE, URINE AUTO; Value: TRACE; Range: NEGATIVE; Abnormal: Above high normal; Status: F Test: BLOOD, URINE BLOOD; Value: 3+; Range: NEGATIVE; Abnormal: Above high normal; Status: F Test: WBC, URINE AUTO; Value: 19; Range: 0-3; Abnormal: Above high normal; Units: /HPF; Status: F Test: RBC, URINE AUTO; Value: 37; Range: 0-3; Abnormal: Above high normal; Units: /HPF; Status: F Test: BACTERIA, URINE AUTO; Value: 2+; Range: NEGATIVE; Abnormal: Above high normal; Status: F Test: SQUAMOUS EPITHELIAL CELL UR AU; Value: 7; Range: 0-6; Units: /HPF; Status: F Test: MUCUS, URINE; Value: LARGE; Range: NEGATIVE; Status: F Test: HYALINE CAST, URINE AUTO; Value: 8; Range: 0-1; Units: /LPF; Status: F Outcome: 22:28 Discharge ordered by Provider. cc10 22:58 Discharge Assessment: Patient awake, alert and oriented x 3. No cognitive and/or ld5 functional deficits noted. Patient verbalized understanding of disposition instructions. patient administered narcotics - yes. Pt provided with safe discharge. The following High Risk Discharge criteria are identified: None. Discharged to home ambulatory, with parent. Condition: stable. Discharge instructions given to patient, parents Instructed on discharge instructions, follow up and referral plans. medication usage, Demonstrated understanding of instructions, medications, Pt was receptive of discharge instructions/ teaching. Prescriptions given X 1. No special radiology studies were completed. Property :Personal belongings accompany Pt. 23:00 Patient left the ED. ld5 Signatures: Purvi Chi RN Jenni Feldman RN RN Montrell Goodson Laura, RN RN ld5 Adenike Salcedo Erin, AMAYA MANAGER DESK[employer] nimeshp Kenneth Gutierrez, PA-C PA-C cc10 Franci Thorne RN RN ms18 MTDD
--- NOTE | 2016-06-25 00:01 | EDDOCDS ---
Physician Documentation [facility] Name: Demi Burger Age: 40 yrs Sex: Female : 1975 Arrival Date: 06/22/2016 Time: 17:26 Bed I3 / M3 Private MD: Fredo Patel Disposition: 06/22/16 22:28 Discharged to Home/Self Care. Impression: Cellulitis of buttock - right, Nausea and vomiting, Generalized abdominal pain - chronic. - Condition is Stable. - Discharge Instructions: Cellulitis, Nausea and Vomiting. - Prescriptions for Bactrim DS 800- 160 mg Oral Tablet - take 2 tablet by ORAL route every 12 hours for 7 days; 28 tablet. - Local Pharmacy Hours, Medication Reconciliation form. - Follow up: Fredo Patel; When: Call to arrange an appointment; Reason: Wound/Symptom Recheck, Recheck today's complaints, Worsening of conditions, Continuance of care. - Problem is an acute exacerbation. - Symptoms have improved. Historical: - Allergies: Aspirin (Hematuria); Bentyl ("feels like i want to pull my skin off"); Biaxin (Rash); GOLD SALTS (Hematuria); Ibuprofen (Hematuria); Toradol (Hematuria); Ultram (Seizures); Wellbutrin (Seizures); - Home Meds: 1. albuterol sulfate 2.5 mg /3 mL (0.083 %) Inhl HFAA 3 mL prn 2. bactroban cream 2% as needed 3. Betoptic S 0.25 % Opht drps 1 drop 2 times per day 4. bisoprolol fumarate 10 mg oral tab 1 tab once daily 5. Citracal 200 mg (950 mg) Oral tab 4 tab daily 6. Cortef 30 mg oral tab 2 tabs once daily 7. Cortef 10 mg oral tab 1 tab nightly 8. Cymbalta 60 mg Oral cpDR 1 cap once daily 9. Depakote ER 500 mg ER one tab in AM and two at HS Oral Tb24 1 tab 10. dexamethasone sodium phos (PF) 10 mg/mL injection soln 1 mL At onset of adrenal crisis 11. Flovent 110 mcg/actuation Inhl aero 1 puff 2 times per day 12. folic acid 1 mg Oral tab 5 tab once daily 13. glucosamine-chondroitin 500-400 mg oral tab 3 tab nightly 14. hydroxyzine HCl 25 mg Oral tab as needed 15. Imodium A-D 2 mg oral tab 2 tabs 16. Kineret 100 mg/0.67 mL subcutaneous syrg daily PRN 17. levothyroxine 75 mcg Oral cap 1 cap once daily 18. lisinopril 5 mg Oral tab 2 tabs once daily 19. Mag 64 64 mg oral tab 1 tab daily 20. mirtazapine 30 mg Oral TbDL nightly 21. Mobic 15 mg oral tab 1 tab once daily 22. Nexium 40 mg Oral cpDR 1 cap once daily 23. potassium chloride 10 mEq Oral cpER 2 caps once daily 24. ProAir HFA 90 mcg/actuation inhalation HFAA 1 puff as needed 25. sulfasalazine 500 mg Oral tab 2 tab three times a day 26. Tylenol 500mg Oral 1 tab as needed 27. Vitamin D Oral 1000 unit daily couple weeks ago 28. voltaren gel as needed 29. Xalatan 0.005 % Opht drop 1 drop once daily 30. methotrexate sodium 2.5 mg Oral tab 6 tabs every Sunday 31. Tigan 300 mg Oral cap BID PRN 32. Zofran (as hydrochloride) 8 mg Oral tab 1 tab every 6 hours as needed 33. Zebeta 10 mg oral tab 2 tabs once daily 34. multivitamin Oral tab 1 tab daily 35. Rozerem 8 mg oral tab 1 tab once daily HS - PMHx: adrenal crisis; adrenal insufficiency; Asthma; benign mitral valve prolapse; chronic anemia; Colitis; Fibromyalgia; GERD; Hypertension; Hypothyroidism; IBS; juvenile arthritis; Lupus; Migraines; neuropathy; Seizures; - PSHx: Knee surgery- Left; left great toe; right wrist; - Social history: Smoking status: Patient states was never smoker of tobacco. No barriers to communication noted, The patient speaks fluent [place], Speaks appropriately for age. - Family history: Not pertinent. - : The pt / caregiver states he / she is not on anticoagulants. Home medication list is obtained from the patient. - Exposure Risk Screening:: None identified. 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 0 in. (152.40 cm) (R); Pain 8/10; 20:55 BP 122 / 66; Pulse 107; Resp 18; Temp 99.5(O); Pulse Ox 99% on R/A; Pain 7/10; ld5 22:39 BP 138 / 76; Pulse 111; Resp 16; Temp 99.5; Pulse Ox 99% ; ajs 17:28 Body Mass Index 24.02 (55.79 kg, 152.40 cm) elp MDM: 18:51 NS 0.9% 1000 ml IV at bolus once ordered. cc10 18:51 Ondansetron 4 mg IVP once ordered. cc10 18:51 IV Saline Lock ordered. cc10 18:51 Undress patient appropriately for examination ordered. cc10 18:51 Dilaudid - HYDROmorphone 0.5 mg IVP once ordered. cc10 18:52 Basic Metabolic Profile Ordered. EDMS 18:52 CBC with Diff Ordered. EDMS 18:52 Lipase Ordered. EDMS 18:52 Liver Profile Ordered. EDMS 18:52 Urinalysis Ordered. EDMS 18:53 NOTHING BY MOUTH+DIET ordered. EDMS 20:15 Financial registration complete. zo 20:49 [facility] Payment Agreement was scanned into [employer] and attached to record. zo 21:01 CBC with Diff Reviewed. cc10 21:01 Liver Profile Reviewed. cc10 21:01 Urinalysis Reviewed. cc10 21:01 Basic Metabolic Profile Reviewed. cc10 21:01 Lipase Reviewed. cc10 22:32 Trimethoprim-Sulfamethoxazole (MRSA dose) 160 mg-800 mg (DS) 2 tabs PO once ordered. cc10 06/23 13:44 T-Sheet-- Draft Copy was scanned into [employer] and attached to record. gb Administered Medications: 06/22 19:42 Drug: NS 0.9% 1000 ml [sodium chloride 0.9 % intravenous solution] Route: IV; Rate: ld5 bolus; Site: left hand; 22:57 Follow up: IV Status: Completed infusion; IV Intake: 1000ml ld5 19:42 Drug: Ondansetron 4 mg [ondansetron HCl 2 mg/mL intravenous solution (2 mL)] Route: ld5 IVP; Site: left hand; 20:56 Follow up: Response: Nausea is decreased ld5 19:42 Drug: Dilaudid - HYDROmorphone 0.5 mg [hydromorphone 1 mg/mL injection syringe (0.5 ld5 mL)] Route: IVP; Site: left hand; 20:55 Follow up: BP 122 / 66; Pulse 107 bpm; Resp 18 bpm; Temp 99.5 Oral; Pulse Ox 99% RA; ld5 Pain 7/10 Adult; Response: Confirmed pt not driving.; Pain is decreased 22:57 Drug: Trimethoprim-Sulfamethoxazole (MRSA dose) 2 tabs [sulfamethoxazole 800 ld5 mg-trimethoprim 160 mg tablet (2 tabs)] Route: PO; Signatures: Dispatcher [employer] EDMS Radha Bernardo, Reg Reg gb Jenni Puri,RN RN jo3 Montrell Cochran Laura, RN RN ld5 Kenneth Gutierrez PA-C PAAllyson cc10 The chart was reviewed and I authenticate all verbal orders and agree with the evaluation and treatment provided.Attachments: 20:49 [facility] Payment Agreement zo 06/23 13:44 T-Sheet-- Draft Copy gb Chart Complete MTDD
--- NOTE | 2016-06-25 00:01 | EDDOCDS ---
Nurse's Notes [facility] Name: Demi Burger Age: 40 yrs Sex: Female : 1975 Arrival Date: 06/22/2016 Time: 17:26 Bed I3 / M3 Private MD: Fredo Patel Diagnosis: Cellulitis of buttock-right;Nausea and vomiting;Generalized abdominal pain-chronic Presentation: 06/22 17:41 Presenting complaint: Patient states: "It all started when I was diagnosed with a sinus jo3 infection. I was given Azithromycin and kept getting worse Then I started getting abdominal pain and I'm dehydrated lópez I haven't been able to eat or drink anything and I've got a sore that needs to be checked out." Sore is located on pt's right buttock. Risk factors: the patient reports on menses. Adult Sepsis Screening: The patient does not have new or worsening altered mentation. Patient's respiratory rate is less than 22. Systolic blood pressure is greater than 100. Patient has a qSOFA score of 0- Negative Sepsis Screen. Suicide/Homicide risk assessment- the patient denies having any suicidal and/or homicidal ideations and does not present with any other emotional, behavioral or mental health complaints. Status: Patient is not a human service specialist or dependent. Transition of care: patient was not received from another setting of care. 17:41 Acuity: EULA Level 3 jo3 17:41 Method Of Arrival: Walkin/Carried/Asstd jo3 Triage Assessment: 17:47 General: Appears in no apparent distress, Behavior is appropriate for age, cooperative. jo3 Pain: Pain currently is 9 out of 10 on a pain scale. HIV screening NA for this visit Offered previously. Neurological: Level of Consciousness is awake, alert, Oriented to person, place, time. Respiratory: Airway is patent Respiratory effort is even, unlabored. Derm: Skin is pink, warm & dry. 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 albuterol sulfate 2.5 mg /3 mL (0.083 %) Inhl HFAA 3 mL prn 2. bactroban cream 2% as needed 3. Betoptic S 0.25 % Opht drps 1 drop 2 times per day 4. bisoprolol fumarate 10 mg oral tab 1 tab once daily 5. Citracal 200 mg (950 mg) Oral tab 4 tab daily 6. Cortef 30 mg oral tab 2 tabs once daily 7. Cortef 10 mg oral tab 1 tab nightly 8. Cymbalta 60 mg Oral cpDR 1 cap once daily 9. Depakote ER 500 mg ER one tab in AM and two at HS Oral Tb24 1 tab 10. dexamethasone sodium phos (PF) 10 mg/mL injection soln 1 mL At onset of adrenal crisis 11. Flovent 110 mcg/actuation Inhl aero 1 puff 2 times per day 12. folic acid 1 mg Oral tab 5 tab once daily 13. glucosamine-chondroitin 500-400 mg oral tab 3 tab nightly 14. hydroxyzine HCl 25 mg Oral tab as needed 15. Imodium A-D 2 mg oral tab 2 tabs 16. Kineret 100 mg/0.67 mL subcutaneous syrg daily PRN 17. levothyroxine 75 mcg Oral cap 1 cap once daily 18. lisinopril 5 mg Oral tab 2 tabs once daily 19. Mag 64 64 mg oral tab 1 tab daily 20. mirtazapine 30 mg Oral TbDL nightly 21. Mobic 15 mg oral tab 1 tab once daily 22. Nexium 40 mg Oral cpDR 1 cap once daily 23. potassium chloride 10 mEq Oral cpER 2 caps once daily 24. ProAir HFA 90 mcg/actuation inhalation HFAA 1 puff as needed 25. sulfasalazine 500 mg Oral tab 2 tab three times a day 26. Tylenol 500mg Oral 1 tab as needed 27. Vitamin D Oral 1000 unit daily couple weeks ago 28. voltaren gel as needed 29. Xalatan 0.005 % Opht drop 1 drop once daily 30. methotrexate sodium 2.5 mg Oral tab 6 tabs every Sunday 31. Tigan 300 mg Oral cap BID PRN 32. Zofran (as hydrochloride) 8 mg Oral tab 1 tab every 6 hours as needed 33. Zebeta 10 mg oral tab 2 tabs once daily 34. multivitamin Oral tab 1 tab daily 35. Rozerem 8 mg oral tab 1 tab once daily HS - PMHx: adrenal crisis; adrenal insufficiency; Asthma; benign mitral valve prolapse; chronic anemia; Colitis; Fibromyalgia; GERD; Hypertension; Hypothyroidism; IBS; juvenile arthritis; Lupus; Migraines; neuropathy; Seizures; - PSHx: Knee surgery- Left; left great toe; right wrist; - Social history: Smoking status: Patient states was never smoker of tobacco. No barriers to communication noted, The patient speaks fluent [place], Speaks appropriately for age. - Family history: Not pertinent. - : The pt / caregiver states he / she is not on anticoagulants. Home medication list is obtained from the patient. - Exposure Risk Screening:: None identified. Screenin:57 Screening information is obtained from the patient. Fall risk: No risks identified. ld5 Assistance ADL's: Requires assistance with meal preparation, this assistance is provided by family members, housework, assistance is provided by family members. Abuse/DV Screen: The patient / caregiver reports he/she is: not in a situation that causes fear, pain or injury. Nutritional screening: No deficits noted. Advance Directives: There is no active DNR order. home support is adequate. Assessment: 19:43 General: Appears in no apparent distress, Behavior is cooperative. Pain: Location: ld5 abdomen Pain currently is 9 out of 10 on a pain scale. Neurological: Level of Consciousness is awake, alert. Respiratory: Airway is patent Respiratory effort is even, unlabored. GI: Abdomen is non- distended Bowel sounds present X 4 quads. Abd is tender to palpation in left upper quadrant Reports nausea. Derm: Reports skin sore to buttocks. Per mother, sore is bigger and more red than previous times. 20:56 General: Pt reports decreased pain. Requesting something to drink. Resting comfortably ld5 in bed watching TV. Call tolentino within reach. Will continue to monitor. 22:00 General: Appears in no apparent distress, Behavior is cooperative. Pain: Pain currently ld5 is 6 out of 10 on a pain scale. Neurological: Level of Consciousness is awake, obeys commands. Respiratory: Airway is patent Respiratory effort is even, unlabored. 22:58 General: Appears in no apparent distress, Behavior is cooperative. Pain: Pain currently ld5 is 6 out of 10 on a pain scale. Respiratory: Airway is patent Respiratory effort is even, unlabored. Vital Signs: 17:28 BP 129 / 74; Pulse 120; Resp 20; Temp 99.4(O); Pulse Ox 99% on R/A; Weight 55.79 kg elp (R); Height 5 ft. 0 in. (152.40 cm) (R); Pain 8/10; 20:55 BP 122 / 66; Pulse 107; Resp 18; Temp 99.5(O); Pulse Ox 99% on R/A; Pain 7/10; ld5 22:39 BP 138 / 76; Pulse 111; Resp 16; Temp 99.5; Pulse Ox 99% ; ajs 17:28 Body Mass Index 24.02 (55.79 kg, 152.40 cm) el Vitals: 17:28 Log In Time: June 22, 2016 at 17:26. elp ED Course: 17:27 Patient visited by Irish Beth PCA. elp 17:27 Patient moved to Waiting elp 17:28 Fredo Patel is Private Physician. elp 17:29 Patient visited by Irish Beth PCA. elp 17:29 Patient moved to Pre RCE elp 17:44 Triage Initiated jo3 17:48 Patient visited by Jenni Puri RN. jo3 17:53 Patient moved to Triage 1 kcs 18:19 [facility] cc10 18:19 Trever Gunter MD is Attending Physician. cc10 18:19 Patient visited by Kenneth Gutierrez PA-C. cc10 18:19 Patient visited by Kenneth Gutierrez PA-C. cc10 18:54 Patient moved to I3 / M3 kcs 18:55 Urinalysis Sent. ajs 19:45 Patient visited by Beatriz Ashley,GISELE. ld5 20:49 [facility] Payment Agreement was scanned into [employer] and attached to record. zo 20:57 The patient / caregiver is instructed regarding the plan of care and ED course. ld5 Accompanied by Family Member, Patient has correct armband on for positive identification. Placed in gown. Bed in low position. Call light in reach. 20:57 Inserted saline lock: 22 gauge in left hand by Mark Jovel RN. ld5 20:59 Patient visited by Beatriz Ashley,GISELE. ld5 22:09 Patient visited by Franci Thorne RN. ms18 22:28 Fredo Patel is Referral Physician. cc10 22:39 Patient visited by Adenike Salcedo. ajs 22:58 Discontinued lock intact, bleeding controlled, pressure dressing applied, No ld5 redness/swelling at site. No procedures done that require assistance. 23:00 Patient visited by Beatriz Ashley RN. ld5 06/23 13:44 T-Sheet-- Draft Copy was scanned into [employer] and attached to record. gb Administered Medications: 06/22 19:42 Drug: NS 0.9% 1000 ml [sodium chloride 0.9 % intravenous solution] Route: IV; Rate: ld5 bolus; Site: left hand; 22:57 Follow up: IV Status: Completed infusion; IV Intake: 1000ml ld5 19:42 Drug: Ondansetron 4 mg [ondansetron HCl 2 mg/mL intravenous solution (2 mL)] Route: ld5 IVP; Site: left hand; 20:56 Follow up: Response: Nausea is decreased ld5 19:42 Drug: Dilaudid - HYDROmorphone 0.5 mg [hydromorphone 1 mg/mL injection syringe (0.5 ld5 mL)] Route: IVP; Site: left hand; 20:55 Follow up: BP 122 / 66; Pulse 107 bpm; Resp 18 bpm; Temp 99.5 Oral; Pulse Ox 99% RA; ld5 Pain 7/10 Adult; Response: Confirmed pt not driving.; Pain is decreased 22:57 Drug: Trimethoprim-Sulfamethoxazole (MRSA dose) 2 tabs [sulfamethoxazole 800 ld5 mg-trimethoprim 160 mg tablet (2 tabs)] Route: PO; Intake: 22:57 IV: 1000.00ml; Total: 1000.00ml. ld5 Order Results: Lab Order: Basic Metabolic Profile; SPEC'M 06/22/16 20:00 Test: GLUCOSE, FASTING; Value: 85; Range: 70-105; Units: MG/DL; Status: F Test: BLOOD UREA NITROGEN; Value: 14; Range: 7-18; Units: MG/DL; Status: F Test: CREATININE FOR GFR; Value: 0.85; Range: 0.55-1.02; Units: MG/DL; Status: F Test: GLOMERULAR FILTRATION RATE; Value: > 60.0; Range: >60; Status: F Test: SODIUM LEVEL; Value: 140; Range: 136-145; Units: MEQ/L; Status: F Test: POTASSIUM SERUM; Value: 4.0; Range: 3.5-5.1; Units: MEQ/L; Status: F Test: CHLORIDE LEVEL; Value: 107; Range: 98-107; Units: MEQ/L; Status: F Test: CARBON DIOXIDE LEVEL; Value: 22; Range: 21-32; Units: MEQ/L; Status: F Test: ANION GAP; Value: 11; Range: 8-16; Units: MEQ/L; Status: F Test: CALCIUM LEVEL; Value: 9.1; Range: 8.5-10.1; Units: MG/DL; Status: F Test Note: ; Units are mL/min/1.73 m2 Chronic Kidney Disease Staging per NKF: Stage I & II GFR >=60 Normal to Mildly Decreased Stage III GFR 30-59 Moderately Decreased Stage IV GFR 15-29 Severely Decreased Stage V GFR <15 Very Little GFR Left ESRD GFR <15 on DIRECTOR PLANS Lab Order: CBC with Diff; SPEC'M 06/22/16 20:00 Test: WHITE BLOOD COUNT; Value: 8.4; Range: 4.0-10.0; Units: K/mm3; Status: F Test: RED BLOOD COUNT; Value: 4.44; Range: 4.00-5.40; Units: M/mm3; Status: F Test: HEMOGLOBIN; Value: 11.2; Range: 12.0-16.0; Abnormal: Below low normal; Units: g/dl; Status: F Test: HEMATOCRIT; Value: 35.3; Range: 36.0-47.0; Abnormal: Below low normal; Units: %; Status: F Test: MEAN CORPUSCULAR VOLUME; Value: 79.5; Range: 80.0-96.0; Abnormal: Below low normal; Units: fl; Status: F Test: MEAN CORPUSCULAR HEMOGLOBIN; Value: 25.1; Range: 27.0-33.0; Abnormal: Below low normal; Units: pg; Status: F Test: MEAN CORPUSCULAR HGB CONC; Value: 31.6; Range: 32.0-36.5; Abnormal: Below low normal; Units: g/dl; Status: F Test: RED CELL DISTRIBUTION WIDTH; Value: 15.5; Range: 11.5-14.5; Abnormal: Above high normal; Units: %; Status: F Test: PLATELET COUNT, AUTOMATED; Value: 336; Range: 150-450; Units: k/mm3; Status: F Test: NEUTROPHILS %; Value: 80.1; Range: 36.0-66.0; Abnormal: Above high normal; Units: %; Status: F Test: LYMPH %; Value: 11.7; Range: 24.0-44.0; Abnormal: Below low normal; Units: %; Status: F Test: MONO %; Value: 5.3; Range: 0.0-5.0; Abnormal: Above high normal; Units: %; Status: F Test: EOS %; Value: 0.8; Range: 0.0-3.0; Units: %; Status: F Test: BASO %; Value: 0.2; Range: 0.0-1.0; Units: %; Status: F Test: LARGE UNSTAINED CELL %; Value: 1.9; Range: 0.0-4.0; Units: %; Status: F Test: NEUTROPHILS #; Value: 6.7; Range: 1.8-7.7; Units: K/mm3; Status: F Test: LYMPH #; Value: 1.0; Range: 1.5-4.5; Abnormal: Below low normal; Units: K/mm3; Status: F Test: MONO #; Value: 0.5; Range: 0.0-0.8; Units: K/mm3; Status: F Test: EOS #; Value: 0.1; Range: 0.0-0.50; Units: K/mm3; Status: F Test: BASO #; Value: 0.0; Range: 0.0-0.2; Units: K/mm3; Status: F Test: LARGE UNSTAINED CELL #; Value: 0.2; Range: 0.0-0.4; Units: K/mm3; Status: F Lab Order: Lipase; SPEC'M 06/22/16 20:00 Test: LIPASE; Value: 163; Range: 73-393; Units: U/L; Status: F Lab Order: Liver Profile; SPEC'M 02/02/17 20:00 Test: AST/SGOT; Value: 16; Range: 15-37; Units: U/L; Status: F Test: ALT/SGPT; Value: 15; Range: 12-78; Units: U/L; Status: F Test: ALKALINE PHOSPHATASE; Value: 70; Range: 45-117; Units: U/L; Status: F Test: BILIRUBIN,TOTAL; Value: 0.3; Range: 0.2-1.0; Units: MG/DL; Status: F Test: BILIRUBIN,DIRECT; Value: < 0.1; Range: 0.0-0.2; Units: MG/DL; Status: F Test: TOTAL PROTEIN; Value: 7.7; Range: 6.4-8.2; Units: GM/DL; Status: F Test: ALBUMIN; Value: 3.5; Range: 3.2-5.2; Units: GM/DL; Status: F Test: ALBUMIN/GLOBULIN RATIO; Value: 0.83; Range: 1.00-1.93; Abnormal: Below low normal; Status: F Lab Order: Urinalysis; SPEC'M 06/22/16 18:54 Test: APPEARANCE, URINE; Value: CLOUDY; Range: CLEAR; Abnormal: Above high normal; Status: F Test: COLOR, URINE; Value: YELLOW; Range: YELLOW; Status: F Test: PH,URINE; Value: 5.0; Range: 5.0-9.0; Units: UNITS; Status: F Test: SPECIFIC GRAVITY URINE AUTO; Value: 1.024; Range: 1.002-1.035; Status: F Test: PROTEIN, URINE AUTO; Value: 2+; Range: NEGATIVE; Abnormal: Above high normal; Units: mg/dL; Status: F Test: GLUCOSE, URINE (UA) AUTO; Value: NEGATIVE; Range: NEGATIVE; Units: mg/dL; Status: F Test: KETONE, URINE AUTO; Value: 1+; Range: NEGATIVE; Abnormal: Above high normal; Units: mg/dL; Status: F Test: UROBILINOGEN, URINE AUTO; Value: 0.2; Range: 0.0-2.0; Units: mg/dL; Status: F Test: BILIRUBIN, URINE AUTO; Value: NEGATIVE; Range: NEGATIVE; Status: F Test: NITRITE, URINE AUTO; Value: NEGATIVE; Range: NEGATIVE; Status: F Test: LEUKOCYTE ESTERASE, URINE AUTO; Value: TRACE; Range: NEGATIVE; Abnormal: Above high normal; Status: F Test: BLOOD, URINE BLOOD; Value: 3+; Range: NEGATIVE; Abnormal: Above high normal; Status: F Test: WBC, URINE AUTO; Value: 19; Range: 0-3; Abnormal: Above high normal; Units: /HPF; Status: F Test: RBC, URINE AUTO; Value: 37; Range: 0-3; Abnormal: Above high normal; Units: /HPF; Status: F Test: BACTERIA, URINE AUTO; Value: 2+; Range: NEGATIVE; Abnormal: Above high normal; Status: F Test: SQUAMOUS EPITHELIAL CELL UR AU; Value: 7; Range: 0-6; Units: /HPF; Status: F Test: MUCUS, URINE; Value: LARGE; Range: NEGATIVE; Status: F Test: HYALINE CAST, URINE AUTO; Value: 8; Range: 0-1; Units: /LPF; Status: F Outcome: 22:28 Discharge ordered by Provider. cc10 22:58 Discharge Assessment: Patient awake, alert and oriented x 3. No cognitive and/or ld5 functional deficits noted. Patient verbalized understanding of disposition instructions. patient administered narcotics - yes. Pt provided with safe discharge. The following High Risk Discharge criteria are identified: None. Discharged to home ambulatory, with parent. Condition: stable. Discharge instructions given to patient, parents Instructed on discharge instructions, follow up and referral plans. medication usage, Demonstrated understanding of instructions, medications, Pt was receptive of discharge instructions/ teaching. Prescriptions given X 1. No special radiology studies were completed. Property :Personal belongings accompany Pt. 23:00 Patient left the ED. ld5 Signatures: Purvi Chi, RN RN Radha Lopez, Reg Reg gb Jenni Puri RN RN Montrell Goodson Laura, RN RN ld5 Adenike Salcedo Erin, AMAYA OPERATING ROOM AIDE Kenneth Graham, PA-C PA-C cc10 Franci Thorne RN RN ms18 Chart Complete MTDD
--- NOTE | 2016-06-25 00:01 | EDDOCDS ---
Physician Documentation [facility] Name: Demi Burger Age: 40 yrs Sex: Female : 1975 Arrival Date: 06/22/2016 Time: 17:26 Bed I3 / M3 Private MD: Fredo Patel Disposition: 06/22/16 22:28 Discharged to Home/Self Care. Impression: Cellulitis of buttock - right, Nausea and vomiting, Generalized abdominal pain - chronic. - Condition is Stable. - Discharge Instructions: Cellulitis, Nausea and Vomiting. - Prescriptions for Bactrim DS 800- 160 mg Oral Tablet - take 2 tablet by ORAL route every 12 hours for 7 days; 28 tablet. - Local Pharmacy Hours, Medication Reconciliation form. - Follow up: Fredo Patel; When: Call to arrange an appointment; Reason: Wound/Symptom Recheck, Recheck today's complaints, Worsening of conditions, Continuance of care. - Problem is an acute exacerbation. - Symptoms have improved. Historical: - Allergies: Aspirin (Hematuria); Bentyl ("feels like i want to pull my skin off"); Biaxin (Rash); GOLD SALTS (Hematuria); Ibuprofen (Hematuria); Toradol (Hematuria); Ultram (Seizures); Wellbutrin (Seizures); - Home Meds: 1. albuterol sulfate 2.5 mg /3 mL (0.083 %) Inhl HFAA 3 mL prn 2. bactroban cream 2% as needed 3. Betoptic S 0.25 % Opht drps 1 drop 2 times per day 4. bisoprolol fumarate 10 mg oral tab 1 tab once daily 5. Citracal 200 mg (950 mg) Oral tab 4 tab daily 6. Cortef 30 mg oral tab 2 tabs once daily 7. Cortef 10 mg oral tab 1 tab nightly 8. Cymbalta 60 mg Oral cpDR 1 cap once daily 9. Depakote ER 500 mg ER one tab in AM and two at HS Oral Tb24 1 tab 10. dexamethasone sodium phos (PF) 10 mg/mL injection soln 1 mL At onset of adrenal crisis 11. Flovent 110 mcg/actuation Inhl aero 1 puff 2 times per day 12. folic acid 1 mg Oral tab 5 tab once daily 13. glucosamine-chondroitin 500-400 mg oral tab 3 tab nightly 14. hydroxyzine HCl 25 mg Oral tab as needed 15. Imodium A-D 2 mg oral tab 2 tabs 16. Kineret 100 mg/0.67 mL subcutaneous syrg daily PRN 17. levothyroxine 75 mcg Oral cap 1 cap once daily 18. lisinopril 5 mg Oral tab 2 tabs once daily 19. Mag 64 64 mg oral tab 1 tab daily 20. mirtazapine 30 mg Oral TbDL nightly 21. Mobic 15 mg oral tab 1 tab once daily 22. Nexium 40 mg Oral cpDR 1 cap once daily 23. potassium chloride 10 mEq Oral cpER 2 caps once daily 24. ProAir HFA 90 mcg/actuation inhalation HFAA 1 puff as needed 25. sulfasalazine 500 mg Oral tab 2 tab three times a day 26. Tylenol 500mg Oral 1 tab as needed 27. Vitamin D Oral 1000 unit daily couple weeks ago 28. voltaren gel as needed 29. Xalatan 0.005 % Opht drop 1 drop once daily 30. methotrexate sodium 2.5 mg Oral tab 6 tabs every Sunday 31. Tigan 300 mg Oral cap BID PRN 32. Zofran (as hydrochloride) 8 mg Oral tab 1 tab every 6 hours as needed 33. Zebeta 10 mg oral tab 2 tabs once daily 34. multivitamin Oral tab 1 tab daily 35. Rozerem 8 mg oral tab 1 tab once daily HS - PMHx: adrenal crisis; adrenal insufficiency; Asthma; benign mitral valve prolapse; chronic anemia; Colitis; Fibromyalgia; GERD; Hypertension; Hypothyroidism; IBS; juvenile arthritis; Lupus; Migraines; neuropathy; Seizures; - PSHx: Knee surgery- Left; left great toe; right wrist; - Social history: Smoking status: Patient states was never smoker of tobacco. No barriers to communication noted, The patient speaks fluent Georgian, Speaks appropriately for age. - Family history: Not pertinent. - : The pt / caregiver states he / she is not on anticoagulants. Home medication list is obtained from the patient. - Exposure Risk Screening:: None identified. 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 0 in. (152.40 cm) (R); Pain 8/10; 20:55 BP 122 / 66; Pulse 107; Resp 18; Temp 99.5(O); Pulse Ox 99% on R/A; Pain 7/10; ld5 22:39 BP 138 / 76; Pulse 111; Resp 16; Temp 99.5; Pulse Ox 99% ; ajs 17:28 Body Mass Index 24.02 (55.79 kg, 152.40 cm) elp MDM: 18:51 NS 0.9% 1000 ml IV at bolus once ordered. cc10 18:51 Ondansetron 4 mg IVP once ordered. cc10 18:51 IV Saline Lock ordered. cc10 18:51 Undress patient appropriately for examination ordered. cc10 18:51 Dilaudid - HYDROmorphone 0.5 mg IVP once ordered. cc10 18:52 Basic Metabolic Profile Ordered. EDMS 18:52 CBC with Diff Ordered. EDMS 18:52 Lipase Ordered. EDMS 18:52 Liver Profile Ordered. EDMS 18:52 Urinalysis Ordered. EDMS 18:53 NOTHING BY MOUTH+DIET ordered. EDMS 20:15 Financial registration complete. zo 20:49 [facility] [place] Payment Agreement was scanned into [email or web address] and attached to record. zo 21:01 CBC with Diff Reviewed. cc10 21:01 Liver Profile Reviewed. cc10 21:01 Urinalysis Reviewed. cc10 21:01 Basic Metabolic Profile Reviewed. cc10 21:01 Lipase Reviewed. cc10 22:32 Trimethoprim-Sulfamethoxazole (MRSA dose) 160 mg-800 mg (DS) 2 tabs PO once ordered. cc10 06/23 13:44 T-Sheet-- Draft Copy was scanned into [employer]you and attached to record. gb Administered Medications: 06/22 19:42 Drug: NS 0.9% 1000 ml [sodium chloride 0.9 % intravenous solution] Route: IV; Rate: ld5 bolus; Site: left hand; 22:57 Follow up: IV Status: Completed infusion; IV Intake: 1000ml ld5 19:42 Drug: Ondansetron 4 mg [ondansetron HCl 2 mg/mL intravenous solution (2 mL)] Route: ld5 IVP; Site: left hand; 20:56 Follow up: Response: Nausea is decreased ld5 19:42 Drug: Dilaudid - HYDROmorphone 0.5 mg [hydromorphone 1 mg/mL injection syringe (0.5 ld5 mL)] Route: IVP; Site: left hand; 20:55 Follow up: BP 122 / 66; Pulse 107 bpm; Resp 18 bpm; Temp 99.5 Oral; Pulse Ox 99% RA; ld5 Pain 7/10 Adult; Response: Confirmed pt not driving.; Pain is decreased 22:57 Drug: Trimethoprim-Sulfamethoxazole (MRSA dose) 2 tabs [sulfamethoxazole 800 ld5 mg-trimethoprim 160 mg tablet (2 tabs)] Route: PO; Signatures: Dispatcher [employer] EDMS Radha Bernardo, Reg Reg gb Jenni Puri,RN RN jo3 Montrell Cochran Laura, RN RN ld5 Kenneth Gutierrez PA-C PAAllyson cc10 The chart was reviewed and I authenticate all verbal orders and agree with the evaluation and treatment provided.Attachments: 20:49 [facility] [place] Payment Agreement zo 06/23 13:44 T-Sheet-- Draft Copy gb Chart Complete MTDD
== END 2016-06-22 23:00 | disposition home or self-care (01) ==
LOC: M ED 17:26
DX: L03.317 Cellulitis of buttock (principal); R10.84 Generalized abdominal pain; R11.2 Nausea with vomiting, unspecified; I10 Essential (primary) hypertension; J45.909 Unspecified asthma, uncomplicated; E03.9 Hypothyroidism, unspecified; E27.40 Unspecified adrenocortical insufficiency; D64.9 Anemia, unspecified; M79.7 Fibromyalgia; K21.9 Gastro-esophageal reflux disease without esophagitis; K58.9 Irritable bowel syndrome, unspecified; M08.90 Juvenile arthritis, unspecified, unspecified site; M32.9 Systemic lupus erythematosus, unspecified; Z79.899 Other long term (current) drug therapy; Z79.52 Long term (current) use of systemic steroids; Z88.6 Allergy status to analgesic agent; Z88.8 Allergy status to other drugs, medicaments and biological substances; Z88.1 Allergy status to other antibiotic agents; Z88.5 Allergy status to narcotic agent
CPT/HCPCS: 36415; 80048; 80076; 81001; 83690; 85025; 96361; 96374; 96375; 99284; J1170; J2405

== ENCOUNTER 2016-07-02 18:04 | Observation (INO) | payer OTHER ==
[~2016-07-02] VITALS: Ht 152.4 cm; Wt 53.4 kg
[~2016-07-02 18:04] MED LIST changes: +NORC1TAB4 PO; -NORC5TAB PO
[2016-07-02] MEDS ORDERED: MORPHINE 4 MG/ML 1ML SYRINGE As Ordered ONE (20:52)
[2016-07-02 21:11] LABS: BASO % 0.3 % (0.0-1.0); EOS % 0.9 % (0.0-3.0); LARGE UNSTAINED CELL # 0.1 K/mm3 (0.0-0.4); LARGE UNSTAINED CELL % 1.9 % (0.0-4.0); LYMPH # 1.3 K/mm3 (1.5-4.5); LYMPH % 23.6 % (24.0-44.0); MEAN CORPUSCULAR HEMOGLOBIN 25.6 pg (27.0-33.0); MEAN CORPUSCULAR HGB CONC 32.3 g/dl (32.0-36.5); MEAN CORPUSCULAR VOLUME 79.2 fl (80.0-96.0); MONO # 0.3 K/mm3 (0.0-0.8); MONO % 5.9 % (0.0-5.0); NEUTROPHILS # 3.5 K/mm3 (1.8-7.7); NEUTROPHILS % 67.4 % (36.0-66.0); PLATELET COUNT, AUTOMATED 296 k/mm3 (150-450); RED CELL DISTRIBUTION WIDTH 15.9 % (11.5-14.5); WHITE BLOOD COUNT 5.2 K/mm3 (4.0-10.0)
[2016-07-02 21:42] LABS: ALBUMIN 3.9 GM/DL (3.2-5.2); ALBUMIN/GLOBULIN RATIO 1.05 (1.00-1.93); ALKALINE PHOSPHATASE 61 U/L (45-117); ALT/SGPT 12 U/L (12-78); ANION GAP 13 MEQ/L (8-16); AST/SGOT 13 U/L (15-37); BILIRUBIN,TOTAL 0.2 MG/DL (0.2-1.0); BLOOD UREA NITROGEN 13 MG/DL (7-18); CALCIUM LEVEL 9.3 MG/DL (8.5-10.1); CARBON DIOXIDE LEVEL 22 MEQ/L (21-32); CHLORIDE LEVEL 105 MEQ/L (98-107); CREATININE FOR GFR 1.19 MG/DL (0.55-1.02); FREE T4 1.63 NG/DL (0.76-1.46); GLOMERULAR FILTRATION RATE 53.8 (>60); GLUCOSE, FASTING 86 MG/DL (70-105); MAGNESIUM LEVEL 1.9 MG/DL (1.8-2.4); PHOSPHORUS LEVEL 2.9 MG/DL (2.5-4.9); POTASSIUM SERUM 4.5 MEQ/L (3.5-5.1); SODIUM LEVEL 140 MEQ/L (136-145); TOTAL PROTEIN 7.6 GM/DL (6.4-8.2)
--- NOTE | 2016-07-02 22:40 | REPUSA ---
CLINICAL HISTORY: SEIZURE, SYNCOPE TECHNIQUE: Multiple axial brain CT scan sections were obtained from base to vertex without contrast a dministration. COMMENTS: The study shows normal configuration of sella turcica. There are no intra or extra-axial collections. There is no mass effect or midline shift. There is no evidence of hematoma formation. No hydrocephal us is present. No abnormal calcifications are noted. No significant abnormalities are seen either in the posterior fossa or supratentorial compartment. The sinuses and mastoid air cells are patent. IMPRESSION: No evidence of acute intracranial pathology. Thank you for your kind referral of this patient.
--- NOTE | 2016-07-02 22:50 | REPUSA ---
CLINICAL HISTORY: SEIZURE, SYNCOPE TECHNIQUE: Multiple axial images were obtained through the cervical spine. Images were also reconstru cted in coronal and sagittal planes. The study was performed without IV contrast. COMMENTS: There is no fracture or spondylolisthesis visualized. The paraspinal soft tissues are unremarkable. T here are no lytic or blastic lesions. Straightening of cervical lordosis is seen, suggesting muscular spasm. There is evidence of m service ild multilevel disk disease, demonstrated by minimal osteophytosis and endplate sclerosis. IMPRESSION: 1. No fracture or spondylolisthesis. 2. Straightening of cervical lordosis is seen, suggesting muscular spasm. 3. Mild multilevel spondylosis. Thank you for your kind referral of this patient.
--- NOTE | 2016-07-02 22:50 | REPUSA ---
CLINICAL HISTORY: SEIZURE, SYNCOPE TECHNIQUE: Multiple axial images were obtained through the L1-L2, L2-L3, L3-L4, L4-L5 and L5-S1 inter spaces. Images were also reconstructed in coronal and sagittal planes. COMMENTS: There is no fracture visualized. The paraspinal soft tissues are unremarkable. There are no lytic or blastic lesions. Straightening of lumbar lordosis is seen, suggesting muscular spasm. There is evidence of mild multil evel disk disease, demonstrated by facet arthropathy, early osteophytosis and endplate sclerosis. IMPRESSION: 1. No fracture or spondylolisthesis. 2. Straightening of lumbar lordosis is seen, suggesting muscular spasm. 3. Mild low degenerative spondylosis. Thank you for your kind referral of this patient.
--- NOTE | 2016-07-02 23:00 | REPUSA ---
CLINICAL HISTORY: SEIZURE, SYNCOPE TECHNIQUE: Multiple axial CT images were obtained through the thoracic spine without IV contrast mate rial. MPR coronal and sagittal sequences were obtained. COMMENTS: Compared to 06/09/16 study. There is mild stable chronic anterior wedging compression fracture deformity noted involving T11 vert ebral body. In addition there are stable Schmorl's nodes involving the superior endplates of T6 and T10 vertebral body. Mild multilevel degenerative spondylosis is seen. This is most severe at T10-T11 levels. There is no acute fracture visualized. The paraspinal soft tissues are unremarkable. There are no lyt ic or blastic lesions. The paravertebral soft tissue space is normal. IMPRESSION: No acute pathology. No interval change. Mild stable chronic anterior wedging compression fracture deformity noted involving T11 vertebral bod y. In addition there are stable Schmorl's nodes involving the superior endplates of T6 and T10 vertebral body. Thank you for your kind referral of this patient.
[2016-07-03] MEDS ORDERED: VALPROATE SOD 500 MG/5 ML As Ordered ONE (00:22)
[2016-07-03] MEDS ORDERED: MORPHINE 4 MG/ML 1ML SYRINGE As Ordered ONE (00:22)
[2016-07-03] MEDS ORDERED: MECLIZINE 12.5 MG TAB As Ordered ONE (01:51)
[2016-07-03] MEDS ORDERED: ACETAMINOPHEN TAB 650MG DOSE (2X325MG) PO PRN (04:00)
[2016-07-03] MEDS ORDERED: ONDANSETRON 4MG/2ML VIAL (J2405) IV PRN (04:00)
--- NOTE | 2016-07-03 04:35 | HPEPDOC ---
General Date of Admission Jul 03, 2016 at 04:00 Chief Complaint The patient is a 40-year-old female admitted with a reason for visit of Seizure. History of Present Illness 40-year-old female with chronic comorbidities including juvenile rheumatoid arthritis, seizure disorder, adrenal insufficiency, chronic anemia, fibromyalgia , GERD, hypertension, hypothyroidism, lupus, chronic migraines who presents complaining of 3 episodes of seizures over the last 24 hours. Of note, the patient has suffered from seizure disorder since age 19. She follows with Dr. Spence of neurology as an outpatient for management of this. She has had 3 similar occurrences over the past 6 months, and notes that her seizures are usually precipitated by dehydration or infection, with low levels of valproic acid noted in laboratory work. At this time, the patient does state that she has just gotten over a sinus infection for which she was treated with antibiotics. The patient states that the 3 seizures lasted approximately 1 minute, one of which was witnessed by the patient's mother. The patient was noted to be on the ground with jerking movements, and some tongue biting noticed. No urinary or fecal incontinence was noted. She does note, that when the episode occurred she did fall and hit her neck and back on the ground. The patient states that she had an EEG done about 8 months ago, and was told that there were no acute findings at the time. At this time, the patient denies any fevers, chills, shortness of breath, chest pain, palpitations, visual blurring, numbness/ tingling, abdominal pain, or any nausea/vomiting/diarrhea. In the ER, a CT scan of the head, cervical, thoracic, and lumbar spine revealed no acute findings. Of note, the patient's valproic acid level was noted to be subtherapeutic once again. Neurology was contacted by the ER physician, and the patient was given a 500 mg bolus of valproic acid, and her daily dosage was also increased by 250 mg twice a day. The patient will be admitted to the hospitalist service for further evaluation and management. Home Medications Scheduled (Citracal Petites/Vitamin 200-250 mg-Unit) 1 Tab Tab 4 TAB PO QHS (Reported) Betaxolol Hydrochloride (Betoptic-S) 0.25 % Louise 1 DROP OS BID (Reported) Bisoprolol Fumarate (Bisoprolol Fumarate) 10 Mg Tab 10 MG PO QHS (Reported) Cholecalciferol (Vitamin D) 1,000 Unit Tab 1,000 UNIT PO DAILY (Reported) Divalproex Sodium (Depakote ER) 250 Mg Tab 1,250 MG PO QHS Divalproex Sodium (Depakote ER) 250 Mg Tab 750 MG PO DAILY Duloxetine Hcl (Duloxetine HCl) 60 Mg Cap 60 MG PO QHS (Reported) Esomeprazole Magnesium Trihydr (Nexium) 40 Mg Cap 40 MG PO DAILY (Reported) Fluticasone Propionate (Flovent Hfa 110 MCG) 120 Puff/12 Gm Aero 2 PUFF INH BID (Reported) Folic Acid (Folic Acid) 1 Mg Tab 5 MG PO QHS (Reported) Hydrocortisone Base (Cortef) 10 Mg Tab 20 MG PO DAILY (Reported) Hydrocortisone Base (Cortef) 10 Mg Tab 10 MG PO QHS (Reported) Latanoprost (Xalatan) 0.005 % Fatimah 1 DROP OU QHS (Reported) Levothyroxine Sodium (Synthroid) 75 Mcg Tab 75 MCG PO DAILY (Reported) Lisinopril (Lisinopril) 10 Mg Tab 10 MG PO QHS (Reported) Magnesium Chloride (Mag64) 64 Mg Tabcr 64 MG PO DAILY (Reported) Meloxicam (Mobic) 7.5 Mg Tab 15 MG PO DAILY (Reported) Methotrexate (Methotrexate) 2.5 Mg Tab 15 MG PO 1XWK (Reported) FRIDAYS AT BEDTIME Mirtazapine (Mirtazapine) 30 Mg Tab 30 MG PO QHS (Reported) Multivitamins *[facility] STOCKED* (Thera M Plus *[facility] STOCKED*) 1 Tab Tab 1 TAB PO DAILY (Reported) Olanzapine (Olanzapine) 10 Mg Tab 10 MG PO DAILY (Reported) Potassium Chloride (K-Tab) 20 Meq Tab 20 MEQ PO QHS (Reported) Ramelteon (Rozerem) 8 Mg Tab 8 MG PO QHS (Reported) Sulfasalazine (Sulfasalazine) 500 Mg Tab 1,000 MG PO TID (Reported) Scheduled PRN Albuterol Sulfate (Ventolin Hfa) 200 Puff/8 Gm Aers 2 PUFF INH Q6H PRN PRN SOB/ WHEEZING (Reported) Hydroxyzine HCl (Hydroxyzine HCl) 25 Mg Tab 25 MG PO DAILY PRN PRN ITCHING ( Reported) Ondansetron HCl (Ondansetron HCl) 8 Mg Tab 8 MG PO Q6H PRN PRN NAUSEA (Reported ) Trimethobenzamide HCl (Tigan) 300 Mg Cap 300 MG PO BID PRN PRN NAUSEA (Reported ) Allergies Coded Allergies: Clarithromycin (Verified Allergy, Intermediate, ITCHING, RASH, 11/17/15) Gold Sodium Thiomalate (Verified Allergy, Intermediate, HEMATRURIA, ) Bupropion (Verified Adverse Reaction, Severe, GRAND MAL SEIZURES, 01/08/15) Tramadol (Verified Adverse Reaction, Severe, GRAND MAL SEIZURES, 01/08/15) Aspirin (Verified Adverse Reaction, Intermediate, HEMATURIA, 01/08/15) Ibuprofen (Verified Adverse Reaction, Intermediate, HEMATURIA, 01/08/15) Ketorolac (Verified Adverse Reaction, Intermediate, HEMATURIA, 11/17/15) Amitriptyline (Unverified Adverse Reaction, Unknown, See Comments, 03/24/16 ) Anxiety, Depression, Overwhelming feeling that "some one was going to " Past Medical History Medical History As noted in HPI. Surgical History Right wrist, left great toe, arthroscopy, left knee surgery Family History Significant Family History: No pertinent family hx Social History * Smoker: non-smoker Alcohol: denies Drugs: denies Lives in a dual complex with her mother. Review of Symptoms Other systems 10 point review systems negative unless otherwise specified in HPI. Physical Examination General Exam: Positive: Alert, Cooperative, No Acute Distress ENT Exam: Positive: Atraumatic, Mucous membr. moist/pink Neck Exam: Negative: JVD Chest Exam: Positive: Clear to auscultation, Normal air movement Heart Exam: Positive: Normal S1, Normal S2, Tachycardic Telemetry: Positive: Sinus, Tachycardia Abdomen Exam: Positive: Soft, Negative: Tenderness Extremity Exam: Positive: Other (patient noted to have changes consistent with rheumatoid arthritis in the hands and feet bilaterally), Negative: Swelling, Tenderness Vital Signs As noted in EMR Laboratory Data Labs 24H Laboratory Tests 2 07/02/16 21:03: Blood Urea Nitrogen 13, Creatinine 1.19H, Sodium Level 140, Potassium Level 4.5 , Chloride Level 105, Carbon Dioxide Level 22, Calcium Level 9.3, Phosphorus Level 2.9, Aspartate Amino Transf (AST/SGOT) 13L, Alanine Aminotransferase (ALT/ SGPT) 12, Total Creatine Kinase 41, Alkaline Phosphatase 61, Total Bilirubin 0.2 , Total Protein 7.6, Albumin 3.9, Albumin/Globulin Ratio 1.05, Anion Gap 13, White Blood Count 5.2, Red Blood Count 4.48, Hemoglobin 11.5L, Hematocrit 35.5L , Mean Corpuscular Volume 79.2L, Mean Corpuscular Hemoglobin 25.6L, Mean Corpuscular Hemoglobin Concent 32.3, Red Cell Distribution Width 15.9H, Platelet Count 296, Neutrophils (%) (Auto) 67.4H, Lymphocytes (%) (Auto) 23.6L, Monocytes (%) (Auto) 5.9H, Eosinophils (%) (Auto) 0.9, Basophils (%) (Auto) 0.3 , Neutrophils # (Auto) 3.5, Lymphocytes # (Auto) 1.3L, Monocytes # (Auto) 0.3, Eosinophils # (Auto) 0.0, Basophils # (Auto) 0.0, Creatine Kinase MB 1.1, Creatine Kinase MB Relative Index 2.68, Free Thyroxine 1.63H, Glomerular Filtration Rate 53.8L, Large Unclassified Cells # 0.1, Large Unclassified Cells % 1.9, Magnesium Level 1.9, Thyroid Stimulating Hormone (TSH) 0.447, Troponin I < 0.02, Valproic Acid (Depakene) Level 32.7L 07/03/16 00:49: Urine Amorphous Sediment , Urine Appearance CLOUDYH, Urine Color YELLOW, Urine pH 5.0, Urine Specific [place] 1.020, Urine Protein 1+H, Urine Glucose (UA) NEGATIVE, Urine Ketones 1+H, Urine Urobilinogen 0.2, Urine Bilirubin NEGATIVE, Urine Leukocyte Esterase NEGATIVE, Urine Bacteria (Auto) 2+H, Urine Blood NEGATIVE, Urine Calcium Carbonate Cryst(Auto) , Urine Calcium Oxalate Cryst ( Auto) , Urine Calcium Phosphate Marylin (Auto) , Urine Cellular Casts , Urine Cystine Crystals , Urine Granular Casts (Auto) , Urine Hyaline Casts (Auto) 9, Urine Leucine Crystals , Urine Mucus (Auto) SMALL, Urine Nitrite NEGATIVE, Urine Oval Fat Bodies (Auto) , Urine RBC (Auto) 4H, Urine Renal Epithelial Cells , Urine Sperm (Auto) , Urine Squamous Epithelial Cells 14, Urine Transitional Epithelial Cells <1, Urine Trichomonas (Auto) , Urine Triple Phosphate Cryst (Auto) , Urine Tyrosine Crystals , Urine Uric Acid Crystals ( Auto) , Urine WBC (Auto) 0, Urine Waxy Casts (Auto) , Urine Yeast-Like Cells ( Auto) CBC/BMP Laboratory Tests 07/02/16 21:03 Calcium Level 9.3, Phosphorus Level 2.9, Aspartate Amino Transf (AST/SGOT) 13 L , Alanine Aminotransferase (ALT/SGPT) 12, Total Creatine Kinase 41, Alkaline Phosphatase 61, Total Bilirubin 0.2, Total Protein 7.6, Albumin 3.9, Red Blood Count 4.48, Mean Corpuscular Volume 79.2 L, Mean Corpuscular Hemoglobin 25.6 L, Mean Corpuscular Hemoglobin Concent 32.3, Red Cell Distribution Width 15.9 H, Neutrophils (%) (Auto) 67.4 H, Lymphocytes (%) (Auto) 23.6 L, Monocytes (%) ( Auto) 5.9 H, Eosinophils (%) (Auto) 0.9, Basophils (%) (Auto) 0.3, Neutrophils # (Auto) 3.5, Lymphocytes # (Auto) 1.3 L, Monocytes # (Auto) 0.3, Eosinophils # (Auto) 0.0, Basophils # (Auto) 0.0 Microbiology Microbiology 07/03/16 Urine Culture, Received Pending Plan / VTE VTE Prophylaxis Ordered?: Yes Plan Plan Recurrent seizures likely secondary to subtherapeutic Depakote level, volume depletion We will admit to PCU CT scan of the head without acute findings Patient's valproic acid level noted to be 32.7 in the ER Neurology contacted in the ER, patient given 500 mg bolus of valproic acid The patient's Depakote dosing increased by 250 mg each twice a day Will defer ordering an EEG for now, as the patient did have one done back in December 2015 Neuro checks Patient's urinalysis not suggestive of a UTI, no overt source of infectious etiology noted at this time that may have triggered this event IV fluid hydration ordered Orthostatic vitals ordered We will continue to monitor the patient's progress Acute kidney injury Serum creatinine noted to be 1.19, baseline closer to 0.8 Likely secondary to volume depletion from dehydration We will withhold nephrotoxic agents IV fluid hydration ordered Repeat BMP in the a.m. Hypertension Patient's blood pressure meds held secondary to dehydration, KELLEY Juvenile rheumatoid arthritis multiple joint deformities of the hands and feet noted Continue methotrexate and her home medications We will order a physical therapy evaluation as the patient does state that she feels weak, with some gait instability Adrenal insufficiency Continue hydrocortisone Consider stress dose of steroids if the patient is orthostatic following IV fluid hydration Hypothyroidism continue Synthroid Chronic back pain Continue current pain regimen GERD- on PPI DVT prophylaxis-heparin subcutaneous The patient will be admitted to the service of Dr. Bailey, who will begin to follow the patient on 07/03/2016 at 7 AM. MARICRUZ SPENCER MD Jul 03, 2016 04:35
[2016-07-03] MEDS ORDERED: BISO10TA6 PO (04:59)
[2016-07-03] MEDS ORDERED: HYDR25T PO (04:59)
[2016-07-03] MEDS ORDERED: LISI10TA4 PO (04:59)
[2016-07-03] MEDS ORDERED: TIGA300C2 PO (04:59)
[2016-07-03] MEDS ORDERED: ROZE8TAB9 PO (04:59)
[2016-07-03] MEDS ORDERED: ALBUTEROL 90 MCG/ACT 8GM HFA INHALER INH PRN (06:30)
[2016-07-03] MEDS ORDERED: hydrOXYzine 25 MG TAB PO PRN (06:30)
[2016-07-03 06:51] LABS: MEAN CORPUSCULAR HEMOGLOBIN 25.7 pg (27.0-33.0); MEAN CORPUSCULAR HGB CONC 32.1 g/dl (32.0-36.5); RED CELL DISTRIBUTION WIDTH 15.9 % (11.5-14.5); WHITE BLOOD COUNT 4.6 K/mm3 (4.0-10.0)
[2016-07-03 07:02] LABS: CALCIUM LEVEL 8.6 MG/DL (8.5-10.1); CREATININE FOR GFR 1.23 MG/DL (0.55-1.02); GLOMERULAR FILTRATION RATE 51.7 (>60); MAGNESIUM LEVEL 1.5 MG/DL (1.8-2.4)
--- NOTE | 2016-07-03 08:30 | ECGEPIP ---
Stationary ECG Study [facility] - ED Test Date: 2016-07-02 Pat Name: CRAISSA PATTERSON Department: Room: [place] [address] Gender: F [employer] G[employer]: : 1975 Requested By: MARICRUZ DUNBAR Order Number: [id number] Reading MD: Cady Nevarez Measurements Intervals Barnard Rate: 113 P: 38 ID: [id number] QRS: 49 QRSD: 73 T: -21 QT: 328 QTc: 450 Interpretive Statements SINUS TACHYCARDIA NONSPECIFIC ST & T-WAVE ABNORMALITY SIMILAR 06/09/16 Electronically Signed On 07-03-2016 8:30:25 EST by Cady Nevarez
[2016-07-03] MEDS: FLUTICASONE HFA 110 MCG 12 GM INHALER (FLOVENT) INH SCH ×2 (08:36→21:16)
[2016-07-03 13:50] VITALS: BP 123/60
--- NOTE | 2016-07-03 13:50 | EDDOCDS ---
Nurse's Notes [facility] Name: Demi Patterson Age: 40 yrs Sex: Female : 1975 Arrival Date: 07/02/2016 Time: 18:04 Bed Admit Hold Private MD: Diagnosis: Dizziness and giddiness Presentation: 07/02 18:08 Presenting complaint: Patient states: have not recovered from dehydration for 2 weeks. rs3 had 3 seizures in 2 days. Reports of lower back pain and headache. Adult Sepsis Screening: The patient does not have new or worsening altered mentation. Patient's respiratory rate is less than 22. Systolic blood pressure is greater than 100. Patient has a qSOFA score of 0- Negative Sepsis Screen. Suicide/Homicide risk assessment- the patient denies having any suicidal and/or homicidal ideations and does not present with any other emotional, behavioral or mental health complaints. Status: Patient is not a service delivery consultant or dependent. Transition of care: patient was not received from another setting of care. 18:08 Acuity: EULA Level 3 rs3 18:08 Method Of Arrival: Wheelchair rs3 Triage Assessment: 18:13 General: Appears in no apparent distress. Pain: Location: lumbar area. HIV screening NA rs3 for this visit Offered previously. 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 albuterol sulfate 2.5 mg /3 mL (0.083 %) Inhl HFAA 3 mL prn 2. bactroban cream 2% as needed 3. Betoptic S 0.25 % Opht drps 1 drop 2 times per day 4. bisoprolol fumarate 10 mg oral tab 1 tab once daily 5. Citracal 200 mg (950 mg) Oral tab 4 tab daily 6. Cortef 30 mg oral tab 2 tabs once daily 7. Cortef 10 mg oral tab 1 tab nightly 8. Cymbalta 60 mg Oral cpDR 1 cap once daily 9. Depakote ER 500 mg ER one tab in AM and two at HS Oral Tb24 1 tab 10. dexamethasone sodium phos (PF) 10 mg/mL injection soln 1 mL At onset of adrenal crisis 11. Flovent 110 mcg/actuation Inhl aero 1 puff 2 times per day 12. folic acid 1 mg Oral tab 5 tab once daily 13. glucosamine-chondroitin 500-400 mg oral tab 3 tab nightly 14. hydroxyzine HCl 25 mg Oral tab as needed 15. Imodium A-D 2 mg oral tab 2 tabs 16. Kineret 100 mg/0.67 mL subcutaneous syrg daily PRN 17. levothyroxine 75 mcg Oral cap 1 cap once daily 18. lisinopril 5 mg Oral tab 2 tabs once daily 19. Mag 64 64 mg oral tab 1 tab daily 20. methotrexate sodium 2.5 mg Oral tab 6 tabs every Sunday 21. mirtazapine 30 mg Oral TbDL nightly 22. Mobic 15 mg oral tab 1 tab once daily 23. multivitamin Oral tab 1 tab daily 24. Nexium 40 mg Oral cpDR 1 cap once daily 25. potassium chloride 10 mEq Oral cpER 2 caps once daily 26. ProAir HFA 90 mcg/actuation inhalation HFAA 1 puff as needed 27. Rozerem 8 mg oral tab 1 tab once daily HS 28. sulfasalazine 500 mg Oral tab 2 tab three times a day 29. Tigan 300 mg Oral cap BID PRN 30. Tylenol 500mg Oral 1 tab as needed 31. Vitamin D Oral 1000 unit daily couple weeks ago 32. voltaren gel as needed 33. Xalatan 0.005 % Opht drop 1 drop once daily 34. Zebeta 10 mg oral tab 2 tabs once daily 35. Zofran (as hydrochloride) 8 mg Oral tab 1 tab every 6 hours as needed - PMHx: adrenal crisis; adrenal insufficiency; Asthma; benign mitral valve prolapse; chronic anemia; Colitis; Fibromyalgia; GERD; Hypertension; Hypothyroidism; IBS; juvenile arthritis; Lupus; Migraines; neuropathy; Seizures; - PSHx: Knee surgery- Left; left great toe; - Social history: Smoking status: Patient states was never smoker of tobacco. No barriers to communication noted, The patient speaks fluent Welsh. - Family history: Not pertinent. - : The pt / caregiver states he / she is not on anticoagulants. Home medication list is obtained from the patient. - Exposure Risk Screening:: None identified. Screenin:07 Screening information is obtained from the patient. 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 Assistance ADL's: requires no assistance with activities of daily living. Abuse/DV Screen: The patient / caregiver reports he/she is: not in a situation that causes fear, pain or injury. Nutritional screening: No deficits noted. Advance Directives: There is no active DNR order. home support is adequate. Assessment: 18:45 General: Appears in no apparent distress, Behavior is appropriate for age, cooperative. ead Pain: Location: back and lumbar area. Neurological: Level of Consciousness is awake, alert, obeys commands, Oriented to person, place, time, Reports headache. Cardiovascular: Chest pain is denied. Respiratory: Airway is patent Respiratory effort is even, unlabored. Respiratory: Denies shortness of breath. GI: Denies nausea, vomiting, pain. Derm: Skin is pink, warm & dry. 19:15 Reassessment: Patient appears in no apparent distress at this time. Patient states tm5 symptoms have improved. no seizure like activity since pt's arrival in the ER, seizure precautions remain in place, will continue to monitor, pt is awaiting MD for evaluation. 19:52 General: still awaiting MD orders, no changes in assessment at this time . tm5 21:01 Cardiovascular: Rhythm is sinus tachycardia No ectopy. tm5 22:44 General: pt sitting up in bed playing on her laptop computer asking for something to tm5 drink, no s/s of any distress, IV fluids infusing without any difficulties noted, no seizure activity noted since pt's arrival in ER. 23:12 General: Ice water provided to pt per MD's approval . tm5 07/03 01:06 Reassessment: Patient appears in no apparent distress at this time. Patient states tm5 feeling better. Patient states symptoms have improved. 03:20 Reassessment: Patient appears in no apparent distress at this time. Patient states tm5 symptoms have not improved. pt states that after all medications she is still having dizziness, states No changes in her dizziness, pt still playing on her laptop computer, no s/s of any distress. Cardiovascular: Rhythm is regular. 04:41 Reassessment: Patient appears in no apparent distress at this time. Patient states tm5 symptoms have improved. pt still playing on her laptop computer, shows no s/s of any distress. 05:00 General: admission Nurse at pt's bedside doing pt's admission assessment . tm5 07:00 Adult Sepsis Screening: The patient does not have new or worsening altered mentation. ead Patient's respiratory rate is less than 22. Systolic blood pressure is greater than 100. Patient has a qSOFA score of 0- Negative Sepsis Screen. General: Appears in no apparent distress, Behavior is appropriate for age, cooperative. Neurological: No deficits noted. Respiratory: Airway is patent Respiratory effort is even, unlabored. Derm: Skin is pink, warm & dry. 08:00 General: Appears in no apparent distress, comfortable, Behavior is appropriate for age, ead cooperative. Neurological: No deficits noted. Respiratory: Airway is patent Respiratory effort is even, unlabored. Derm: Skin is pink, warm & dry. 08:54 General: Appears in no apparent distress, comfortable, Behavior is appropriate for age, ead cooperative, pt given morning medications as ordered for admission. See MAR for administration record. Pt states she no longer takes Zyprexa, medication not given. . Respiratory: Airway is patent Respiratory effort is even, unlabored. Derm: Skin is pink, warm & dry. 10:00 General: Appears in no apparent distress, comfortable. Respiratory: Airway is patent ead Respiratory effort is even, unlabored. GI: Denies nausea, vomiting. Derm: Skin is pink, warm & dry. 11:00 General: Appears in no apparent distress, Behavior is appropriate for age, cooperative. ead General: pt c/o lower back pain, pt offered tylenol as ordered with admission meds. pt declines. pt also declines zofran for nausea. pt updated of bed status for admission. . Pain: Location: back. Neurological: No deficits noted. Respiratory: Airway is patent Respiratory effort is even, unlabored, Respiratory pattern is regular, symmetrical. Derm: Skin is pink, warm & dry. 12:00 General: Appears in no apparent distress, comfortable, Behavior is appropriate for age, ead cooperative. Neurological: No deficits noted. Respiratory: Airway is patent Respiratory effort is even, unlabored. Derm: Skin is pink, warm & dry. 13:00 General: Appears in no apparent distress, comfortable, Behavior is appropriate for age, ead cooperative. Neurological: Level of Consciousness is awake, alert, obeys commands, Oriented to person, place, time. Respiratory: Airway is patent Respiratory effort is even, unlabored. GI: Denies nausea, vomiting. Derm: Skin is pink, warm & dry. 13:48 General: Appears in no apparent distress, Behavior is appropriate for age, cooperative. ead Neurological: No deficits noted. Respiratory: Airway is patent Respiratory effort is even, unlabored. Derm: Skin is pink, warm & dry. Vital Signs: 07/02 18:06 BP 144 / 54 LA Sitting (auto/reg); Pulse 118; Resp 18; Temp 97.8(T); Pulse Ox 98% on bnb R/A; Weight 55.79 kg; Height 5 ft. (152.40 cm); Pain 9/10; 18:28 BP 111 / 54 (auto/); ead 19:00 Pulse 104 MON; Resp 16; Pulse Ox 96% on R/A; ead 21:00 BP 116 / 52 Supine; Pulse 100; tm5 21:00 BP 114 / 54 Sitting; Pulse 102; tm5 21:00 BP 118 / 62 Standing; Pulse 102; tm5 22:42 BP 123 / 56; Pulse 89; Resp 18; Pulse Ox 99% on R/A; Pain 0/10; tm5 13 03:22 BP 116 / 48; Pulse 92; Resp 20; Pulse Ox 98% on R/A; Pain 0/10; tm5 04:41 BP 122 / 58; Pulse 74; Resp 18; Temp 97.8(O); Pulse Ox 99% on R/A; Pain 0/10; tm5 06:19 BP 123 / 58; Pulse 63; Resp 20; Temp 97.6(O); Pulse Ox 98% on R/A; Pain 0/10; tm5 09:36 BP 114 / 57 (auto/); ead 09:36 Pulse 94 MON; Resp 16; Pulse Ox 95% on R/A; ead 10:07 BP 123 / 51 (auto/); ead 10:07 Pulse 88 MON; Pulse Ox 96% ; ead 10:37 BP 100 / 56 (auto/); ead 10:38 Pulse 80 MON; Resp 16; Pulse Ox 96% on R/A; ead 11:07 BP 97 / 53 (auto/); ead 11:08 Pulse 86 MON; Pulse Ox 95% ; ead 12:21 BP 101 / 61; Pulse 74; Resp 16; Temp 98.1; Pulse Ox 96% on R/A; ead 12:37 BP 108 / 54 (auto/); ead 12:38 Pulse 78 MON; Pulse Ox 96% ; ead 13:07 BP 112 / 55 (auto/); ead 13:08 Pulse 100 MON; Resp 16; Pulse Ox 95% on R/A; ead 13:37 BP 106 / 61 (auto/); ead 13:38 Pulse 84 MON; Resp 16; Temp 98.1; Pulse Ox 95% on R/A; ead 07/02 18:06 Body Mass Index 24.02 (55.79 kg, 152.40 cm) bnb Vitals: 07/02 18:06 Log In Time: July 02, 2016 at 18:04. bnb ED Course: 18:05 Patient visited by Raissa Rankin PCA. bnb 18:05 Patient moved to Waiting bnb 18:07 Patient moved to Pre RCE bnb 18:10 Triage Initiated rs3 18:17 Luna Villa RN is Primary Nurse. jjr 18:17 Patient moved to 11 jjr 19:01 Patient visited by Luna Villa RN. ead 19:07 Patient visited by Hayley Silva RN. tm5 19:07 The patient / caregiver is instructed regarding the plan of care and ED course. Patient tm5 has correct armband on for positive identification. Placed in gown. Bed in low position. Call light in reach. Side rails up X 1. Side rails up X2. Seizure precautions initiated. Report received from Luna JAQUEZ, assumed care of pt at this time. 19:08 Awaiting ED physician evaluation. tm5 19:11 Richard Young DO is PHCP. gk1 19:11 Ry Venegas DO is Attending Physician. gk1 19:15 Patient visited by Hayley Silva RN. tm5 19:16 Patient visited by Ry Venegas DO. mm11 19:49 [facility] Payment Agreement was scanned into [employer] and attached to record. zo 19:52 Patient visited by Hayley Silva RN. tm5 20:30 EKG done. (by ED staff). Reviewed by Ry Venegas DO. mdr 20:31 Patient visited by aRmo Saucedo PCA. mdr 20:45 Patient visited by Ry Venegas DO. mm11 20:46 Patient visited by Richard Young DO. gk1 20:58 Patient visited by Richard Young DO. gk1 20:59 Patient visited by Hayley Silva RN. tm5 21:02 Inserted saline lock: 24 gauge in left The patient tolerated the procedure well. left tm5 foot access, pt with very poor IV access. 21:03 Missed attempts: 22 gauge X 3 in right hand, in left hand, in left antecubital area. tm5 21:46 Patient visited by Hayley Silva RN. tm5 21:[address] moved back [address]. tm5 22:41 Patient visited by Hayley Silva RN. tm5 22:46 Primary Nurse role handed off by Luna Villa RN ar3 23:02 CT Head Without Contrast Returned. EDMS 23:02 CT Spine,Cervical W/o Contrast Returned. EDMS 23:02 CT Spine, Lumbar W/o Contrast Returned. EDMS 23:02 CT Spine,Thoracic W/o Contrast Returned. EDMS 23:57 Patient visited by Hayley Silva RN. tm5 02 01:05 Patient visited by Hayley Silva RN. tm5 01:35 Patient visited by Hayley Silva RN. tm5 01:35 Resident to see patient. tm5 02:26 Patient visited by Hayley Silva RN. tm5 03:23 Patient visited by Hayley Silva RN. tm5 04:21 Richard Biswas is Hospitalizing Provider. gk1 05:42 Patient moved to Admit Hold daq 06:13 Patient visited by Hayley Silva RN. tm5 06:13 Awaiting bed assignment. tm5 06:19 Patient visited by Hayley Silva RN. tm5 07:03 Patient visited by Hayley Silva RN. tm5 07:03 Report given to Luna Sotelo RN. tm5 07:11 Luna Villa RN is Primary Nurse. ead 08:34 EKG-ADULT Returned. EDMS 09:38 Patient visited by Luna Villa RN. ead 13:07 Patient visited by Swathi Grey PCA. ar3 13:07 Diet: Patient refused offered diet. patient refused most of the tray. patient only ate ar3 the soup.. 13:48 No procedures done that require assistance. ead Administered Medications: 07/02 20:59 Drug: LR 1000 ml [lactated ringers intravenous solution] {Note: LR given at 250cc/hr tm5 due to poor IV access & #24 angio to left foot.} Route: IV; Rate: bolus; Site: left foot; 07/03 01:37 Follow up: IV Status: Completed infusion; IV Intake: 1000ml tm5 07/02 20:59 Drug: morphine 4 mg [morphine 4 mg/mL intravenous cartridge (1 mL)] Route: IVP; Site: tm5 left foot; 21:30 Follow up: Response: No Adverse Reaction; Pain is resolved tm5 07/03 00:30 Drug: Valproic Acid 500 mg [valproate sodium 500 mg/5 mL (100 mg/mL) intravenous tm5 solution] {Note: given IVPB in 50cc NS .} Route: IVPB; Infused Over: 15 mins; Site: left foot; 01:00 Follow up: IV Status: Completed infusion; IV Intake: 50ml tm5 00:30 Drug: morphine 4 mg [morphine 4 mg/mL intravenous cartridge (1 mL)] Route: IVP; Site: tm5 left foot; 01:00 Follow up: Response: No Adverse Reaction; Pain is resolved tm5 01:59 Drug: Meclizine 25 mg [meclizine 12.5 mg tablet (2 tabs)] Route: PO; tm5 03:20 Follow up: Response: No Adverse Reaction; No significant change. tm5 Point of Care Testing: Urine : 00:53 hCG Reading: Negative; tm5 Ranges: Intake: 01:00 IV: 50.00ml; Total: 50.00ml. tm5 01:37 IV: 1000.00ml; Total: 1050.00ml. tm5 Order Results: Lab Order: CBC with Diff; SPEC'M 07/02/16 21:03 Test: WHITE BLOOD COUNT; Value: 5.2; Range: 4.0-10.0; Units: K/mm3; Status: F Test: RED BLOOD COUNT; Value: 4.48; Range: 4.00-5.40; Units: M/mm3; Status: F Test: HEMOGLOBIN; Value: 11.5; Range: 12.0-16.0; Abnormal: Below low normal; Units: g/dl; Status: F Test: HEMATOCRIT; Value: 35.5; Range: 36.0-47.0; Abnormal: Below low normal; Units: %; Status: F Test: MEAN CORPUSCULAR VOLUME; Value: 79.2; Range: 80.0-96.0; Abnormal: Below low normal; Units: fl; Status: F Test: MEAN CORPUSCULAR HEMOGLOBIN; Value: 25.6; Range: 27.0-33.0; Abnormal: Below low normal; Units: pg; Status: F Test: MEAN CORPUSCULAR HGB CONC; Value: 32.3; Range: 32.0-36.5; Units: g/dl; Status: F Test: RED CELL DISTRIBUTION WIDTH; Value: 15.9; Range: 11.5-14.5; Abnormal: Above high normal; Units: %; Status: F Test: PLATELET COUNT, AUTOMATED; Value: 296; Range: 150-450; Units: k/mm3; Status: F Test: NEUTROPHILS %; Value: 67.4; Range: 36.0-66.0; Abnormal: Above high normal; Units: %; Status: F Test: LYMPH %; Value: 23.6; Range: 24.0-44.0; Abnormal: Below low normal; Units: %; Status: F Test: MONO %; Value: 5.9; Range: 0.0-5.0; Abnormal: Above high normal; Units: %; Status: F Test: EOS %; Value: 0.9; Range: 0.0-3.0; Units: %; Status: F Test: BASO %; Value: 0.3; Range: 0.0-1.0; Units: %; Status: F Test: LARGE UNSTAINED CELL %; Value: 1.9; Range: 0.0-4.0; Units: %; Status: F Test: NEUTROPHILS #; Value: 3.5; Range: 1.8-7.7; Units: K/mm3; Status: F Test: LYMPH #; Value: 1.3; Range: 1.5-4.5; Abnormal: Below low normal; Units: K/mm3; Status: F Test: MONO #; Value: 0.3; Range: 0.0-0.8; Units: K/mm3; Status: F Test: EOS #; Value: 0.0; Range: 0.0-0.50; Units: K/mm3; Status: F Test: BASO #; Value: 0.0; Range: 0.0-0.2; Units: K/mm3; Status: F Test: LARGE UNSTAINED CELL #; Value: 0.1; Range: 0.0-0.4; Units: K/mm3; Status: F Lab Order: Complete Comphrensive Metabolic; SPEC'M 07/02/16 21:03 Test: GLUCOSE, FASTING; Value: 86; Range: 70-105; Units: MG/DL; Status: F Test: BLOOD UREA NITROGEN; Value: 13; Range: 7-18; Units: MG/DL; Status: F Test: CREATININE FOR GFR; Value: 1.19; Range: 0.55-1.02; Abnormal: Above high normal; Units: MG/DL; Status: F Test: GLOMERULAR FILTRATION RATE; Value: 53.8; Range: >60; Abnormal: Below low normal; Status: F Test: SODIUM LEVEL; Value: 140; Range: 136-145; Units: MEQ/L; Status: F Test: POTASSIUM SERUM; Value: 4.5; Range: 3.5-5.1; Units: MEQ/L; Status: F Test: CHLORIDE LEVEL; Value: 105; Range: 98-107; Units: MEQ/L; Status: F Test: CARBON DIOXIDE LEVEL; Value: 22; Range: 21-32; Units: MEQ/L; Status: F Test: ANION GAP; Value: 13; Range: 8-16; Units: MEQ/L; Status: F Test: CALCIUM LEVEL; Value: 9.3; Range: 8.5-10.1; Units: MG/DL; Status: F Test: AST/SGOT; Value: 13; Range: 15-37; Abnormal: Below low normal; Units: U/L; Status: F Test: ALT/SGPT; Value: 12; Range: 12-78; Units: U/L; Status: F Test: ALKALINE PHOSPHATASE; Value: 61; Range: 45-117; Units: U/L; Status: F Test: BILIRUBIN,TOTAL; Value: 0.2; Range: 0.2-1.0; Units: MG/DL; Status: F Test: TOTAL PROTEIN; Value: 7.6; Range: 6.4-8.2; Units: GM/DL; Status: F Test: ALBUMIN; Value: 3.9; Range: 3.2-5.2; Units: GM/DL; Status: F Test: ALBUMIN/GLOBULIN RATIO; Value: 1.05; Range: 1.00-1.93; Status: F Test Note: ; Units are mL/min/1.73 m2 Chronic Kidney Disease Staging per NKF: Stage I & II GFR >=60 Normal to Mildly Decreased Stage III GFR 30-59 Moderately Decreased Stage IV GFR 15-29 Severely Decreased Stage V GFR <15 Very Little GFR Left ESRD GFR <15 on ELEVATING GRADER OPERATOR Lab Order: Magnesium Level; 07/02/16 21:03 Test: MAGNESIUM LEVEL; Value: 1.9; Range: 1.8-2.4; Units: MG/DL; Status: F Lab Order: Phosphorous Level; 07/02/16 21:03 Test: PHOSPHORUS LEVEL; Value: 2.9; Range: 2.5-4.9; Units: MG/DL; Status: F Lab Order: Cardiac Injury Profile; 07/02/16 21:03 Test: CPK CREATINE PHOSPHOKINASE; Value: 41; Range: 26-192; Units: U/L; Status: F Test: CK-MB VALUE MASS; Value: 1.1; Range: 0.0-3.6; Units: NG/ML; Status: F Test: MB/CK RELATIVE INDEX; Value: 2.68; Range: < OR =4; Status: F Test Note: ; DIAGNOSIS CRITERIA MMB ng/ml Relative Index (RI) NON-AMI < or = 5 N/A CHUA ZONE > 5 < or = 4 AMI > 5 > 4 Lab Order: DEPAKOTE; 07/02/16 21:03 Test: VALPROIC ACID (DEPAKOTE); Value: 32.7; Range: 50.0-100.0; Abnormal: Below low normal; Units: UG/ML; Status: F Lab Order: TSH with Free T4; 07/02/16 21:03 Test: THYROID STIMULATING HORMONE; Value: 0.447; Range: 0.358-3.740; Units: uIU/ML; Status: F Test: FREE T4; Value: 1.63; Range: 0.76-1.46; Abnormal: Above high normal; Units: NG/DL; Status: F Lab Order: TROPONIN; [facility] 07/02/16 21:03 Test: TROPONIN I; Value: < 0.02; Range: < 0.10; Units: NG/ML; Status: F Test Note: ; Troponin I Reference Interval for Siemens Clutch LOCI: 99th Percentile= 0.00-0.045 ng/ml Risk Stratification: <= 0.10 ng/ml Decreased Risk for Adverse Clinical Events. 0.10-1.50 ng/ml Increased Risk for Adverse Clinical Events. Evaluation of additional criterion and/or repeat testing in 2-6 hours is suggested to rule out myocardial damage. >= 1.50 ng/ml Indicative of Myocardial Injury. Lab Order: Urinalysis; SPEC'M 07/03/16 00:49 Test: APPEARANCE, URINE; Value: CLOUDY; Range: CLEAR; Abnormal: Above high normal; Status: F Test: COLOR, URINE; Value: YELLOW; Range: YELLOW; Status: F Test: PH,URINE; Value: 5.0; Range: 5.0-9.0; Units: UNITS; Status: F Test: SPECIFIC GRAVITY URINE AUTO; Value: 1.020; Range: 1.002-1.035; Status: F Test: PROTEIN, URINE AUTO; Value: 1+; Range: NEGATIVE; Abnormal: Above high normal; Units: mg/dL; Status: F Test: GLUCOSE, URINE (UA) AUTO; Value: NEGATIVE; Range: NEGATIVE; Units: mg/dL; Status: F Test: KETONE, URINE AUTO; Value: 1+; Range: NEGATIVE; Abnormal: Above high normal; Units: mg/dL; Status: F Test: UROBILINOGEN, URINE AUTO; Value: 0.2; Range: 0.0-2.0; Units: mg/dL; Status: F Test: BILIRUBIN, URINE AUTO; Value: NEGATIVE; Range: NEGATIVE; Status: F Test: NITRITE, URINE AUTO; Value: NEGATIVE; Range: NEGATIVE; Status: F Test: LEUKOCYTE ESTERASE, URINE AUTO; Value: NEGATIVE; Range: NEGATIVE; Status: F Test: BLOOD, URINE BLOOD; Value: NEGATIVE; Range: NEGATIVE; Status: F Test: WBC, URINE AUTO; Value: 0; Range: 0-3; Units: /HPF; Status: F Test: RBC, URINE AUTO; Value: 4; Range: 0-3; Abnormal: Above high normal; Units: /HPF; Status: F Test: BACTERIA, URINE AUTO; Value: 2+; Range: NEGATIVE; Abnormal: Above high normal; Status: F Test: SQUAMOUS EPITHELIAL CELL UR AU; Value: 14; Range: 0-6; Units: /HPF; Status: F Test: TRANSITIONAL EPITHELIAL AUTO; Value: <1; Range: NONE; Units: /HPF; Status: F Test: MUCUS, URINE; Value: SMALL; Range: NEGATIVE; Status: F Test: HYALINE CAST, URINE AUTO; Value: 9; Range: 0-1; Units: /LPF; Status: F Lab Order: BASIC METABOLIC PROFILE; [facility]M 07/03/16 06:40 Test: GLUCOSE, FASTING; Value: 100; Range: 70-105; Units: MG/DL; Status: F Test: BLOOD UREA NITROGEN; Value: 12; Range: 7-18; Units: MG/DL; Status: F Test: CREATININE FOR GFR; Value: 1.23; Range: 0.55-1.02; Abnormal: Above high normal; Units: MG/DL; Status: F Test: GLOMERULAR FILTRATION RATE; Value: 51.7; Range: >60; Abnormal: Below low normal; Status: F Test: SODIUM LEVEL; Value: 139; Range: 136-145; Units: MEQ/L; Status: F Test: POTASSIUM SERUM; Value: 4.0; Range: 3.5-5.1; Units: MEQ/L; Status: F Test: CHLORIDE LEVEL; Value: 105; Range: 98-107; Units: MEQ/L; Status: F Test: CARBON DIOXIDE LEVEL; Value: 24; Range: 21-32; Units: MEQ/L; Status: F Test: ANION GAP; Value: 10; Range: 8-16; Units: MEQ/L; Status: F Test: CALCIUM LEVEL; Value: 8.6; Range: 8.5-10.1; Units: MG/DL; Status: F Test Note: ; Units are mL/min/1.73 m2 Chronic Kidney Disease Staging per NKF: Stage I & II GFR >=60 Normal to Mildly Decreased Stage III GFR 30-59 Moderately Decreased Stage IV GFR 15-29 Severely Decreased Stage V GFR <15 Very Little GFR Left ESRD GFR <15 on ELEVATING GRADER OPERATOR Lab Order: MAGNESIUM LEVEL; SPEC'M 07/03/16 06:40 Test: MAGNESIUM LEVEL; Value: 1.5; Range: 1.8-2.4; Abnormal: Below low normal; Units: MG/DL; Status: F Lab Order: COMPLETE BLOOD COUNT; SPEC'M 07/03/16 06:40 Test: WHITE BLOOD COUNT; Value: 4.6; Range: 4.0-10.0; Units: K/mm3; Status: F Test: RED BLOOD COUNT; Value: 4.11; Range: 4.00-5.40; Units: M/mm3; Status: F Test: HEMOGLOBIN; Value: 10.6; Range: 12.0-16.0; Abnormal: Below low normal; Units: g/dl; Status: F Test: HEMATOCRIT; Value: 32.9; Range: 36.0-47.0; Abnormal: Below low normal; Units: %; Status: F Test: MEAN CORPUSCULAR VOLUME; Value: 80.0; Range: 80.0-96.0; Units: fl; Status: F Test: MEAN CORPUSCULAR HEMOGLOBIN; Value: 25.7; Range: 27.0-33.0; Abnormal: Below low normal; Units: pg; Status: F Test: MEAN CORPUSCULAR HGB CONC; Value: 32.1; Range: 32.0-36.5; Units: g/dl; Status: F Test: RED CELL DISTRIBUTION WIDTH; Value: 15.9; Range: 11.5-14.5; Abnormal: Above high normal; Units: %; Status: F Test: PLATELET COUNT, AUTOMATED; Value: 278; Range: 150-450; Units: k/mm3; Status: F Radiology Order: EKG-ADULT Test: EKG-ADULT REASON FOR EXAMINATION: Syncope; Stationary ECG Study; [facility] - ED; ; Test Date: 2016-07-02; Pat Name: DEMI PATTERSON Department:; Room: [place] [address]; Gender: F Supplier Quality Manager: donavon LARRYB: 1975 Requested By: RICHARD YOUNG [id number]; Order Number: [id number] Reading MD: Cady Nevarez; Measurements; Intervals [place]; Rate: 113 P: 38; IA: 121 QRS: 49; QRSD: 73 T: -21; QT: 328; QTc: 450; Interpretive Statements; SINUS TACHYCARDIA; NONSPECIFIC ST T-WAVE ABNORMALITY; SIMILAR 06/09/16; Electronically Signed On 07-03-2016 8:30:25 EST by Cady Nevarez; Radiology Order: CT Head Without Contrast Test: CT Head Without Contrast REASON FOR EXAMINATION: Syncope; ; CLINICAL HISTORY: SEIZURE, SYNCOPE; TECHNIQUE: Multiple axial brain CT scan sections were obtained from base to vertex without contrast a; dministration.; COMMENTS:; The study shows normal configuration of sella turcica. There are no intra or extra-axial collections.; There is no mass effect or midline shift. There is no evidence of hematoma formation. No hydrocephal; us is present. No abnormal calcifications are noted.; No significant abnormalities are seen either in the posterior fossa or supratentorial compartment.; The sinuses and mastoid air cells are patent.; IMPRESSION:; No evidence of acute intracranial pathology.; Thank you for your kind referral of this patient.; ; Radiology Order: CT Spine, Lumbar W/o Contrast Test: CT Spine, Lumbar W/o Contrast REASON FOR EXAMINATION: Syncope; ; CLINICAL HISTORY: SEIZURE, SYNCOPE; TECHNIQUE: Multiple axial images were obtained through the L1-L2, L2-L3, L3-L4, L4-L5 and L5-S1 inter; spaces. Images were also reconstructed in coronal and sagittal planes.; COMMENTS:; There is no fracture visualized. The paraspinal soft tissues are unremarkable. There are no lytic or; blastic lesions.; Straightening of lumbar lordosis is seen, suggesting muscular spasm. There is evidence of mild multil; evel disk disease, demonstrated by facet arthropathy, early osteophytosis and endplate sclerosis.; IMPRESSION:; 1. No fracture or spondylolisthesis.; 2. Straightening of lumbar lordosis is seen, suggesting muscular spasm.; 3. Mild low degenerative spondylosis.; Thank you for your kind referral of this patient.; ; Radiology Order: CT Spine,Thoracic W/o Contrast Test: CT Spine,Thoracic W/o Contrast REASON FOR EXAMINATION: Syncope; ; CLINICAL HISTORY: SEIZURE, SYNCOPE; TECHNIQUE: Multiple axial CT images were obtained through the thoracic spine without IV contrast mate; rial. MPR coronal and sagittal sequences were obtained.; COMMENTS: Compared to 06/09/16 study.; There is mild stable chronic anterior wedging compression fracture deformity noted involving T11 vert; ebral body. In addition there are stable Schmorl's nodes involving the superior endplates of T6 and; T10 vertebral body.; Mild multilevel degenerative spondylosis is seen. This is most severe at T10-T11 levels.; There is no acute fracture visualized. The paraspinal soft tissues are unremarkable. There are no lyt; ic or blastic lesions.; The paravertebral soft tissue space is normal.; IMPRESSION:; No acute pathology. No interval change.; Mild stable chronic anterior wedging compression fracture deformity noted involving T11 vertebral bod; y.; In addition there are stable Schmorl's nodes involving the superior endplates of T6 and T10 vertebral; body.; Thank you for your kind referral of this patient.; ; Radiology Order: CT Spine,Cervical W/o Contrast Test: CT Spine,Cervical W/o Contrast REASON FOR EXAMINATION: Syncope; ; CLINICAL HISTORY: SEIZURE, SYNCOPE; TECHNIQUE: Multiple axial images were obtained through the cervical spine. Images were also reconstru; cted in coronal and sagittal planes. The study was performed without IV contrast.; COMMENTS:; There is no fracture or spondylolisthesis visualized. The paraspinal soft tissues are unremarkable. T; here are no lytic or blastic lesions.; Straightening of cervical lordosis is seen, suggesting muscular spasm. There is evidence of m service; ild multilevel disk disease, demonstrated by minimal osteophytosis and endplate sclerosis.; IMPRESSION:; 1. No fracture or spondylolisthesis.; 2. Straightening of cervical lordosis is seen, suggesting muscular spasm.; 3. Mild multilevel spondylosis.; Thank you for your kind referral of this patient.; ; Outcome: 04:22 Decision to Hospitalize by Provider. gk1 13:47 Discharge Assessment: Patient awake and alert. obeys commands, Oriented to person, ead place and time. patient administered narcotics - yes. Patient was admitted to the hospital or transferred to another facility. The following High Risk Discharge criteria are identified: None. Admitted to PCU accompanied by nurse, accompanied by tech, via stretcher, on monitor, with chart. Condition: stable. CT Study completed. Property sent home with patient. 13:49 Patient left the ED. ead Signatures: Dispatcher [employer] EDMS Marjan Skinner, RN RN Montrell Wu Matthew, DO DO mm11 Lyn Greer, RN RN Serene AhnRN RN rs3 Swathi Grey, HISTORIC INTERPRETER HISTORIC INTERPRETER ar3 Luna Villa,RN RN ead Ramo Saucedo, HISTORIC INTERPRETER HISTORIC INTERPRETER Richard Caruso, DO DO gk1 Hayley Silva,GISELE RN tm5 Raissa Rankin, HISTORIC INTERPRETER HISTORIC INTERPRETER bnb MTDD
--- NOTE | 2016-07-03 13:50 | EDDOCDS ---
Physician Documentation [facility] Name: Demi Burger Age: 40 yrs Sex: Female : 1975 Arrival Date: 07/02/2016 Time: 18:04 Bed Admit Hold Private MD: Disposition: 07/03 02:20 I have independently interviewed and examined the patient, and I agree with the mm11 investigation, diagnosis and treatment plan as documented by the Resident. Disposition: 07/03/16 04:22 Hospitalization ordered by Richard Biswas for Inpatient Admission. Preliminary diagnosis is Dizziness and giddiness. - Bed requested for PCU. - Status is Inpatient Admission. ead - Condition is Stable. - Problem is new. - Symptoms are unchanged. Historical: - Allergies: Aspirin (Hematuria); Bentyl ("feels like i want to pull my skin off"); Biaxin (Rash); GOLD SALTS (Hematuria); Ibuprofen (Hematuria); Toradol (Hematuria); Ultram (Seizures); Wellbutrin (Seizures); - Home Meds: 1. albuterol sulfate 2.5 mg /3 mL (0.083 %) Inhl HFAA 3 mL prn 2. bactroban cream 2% as needed 3. Betoptic S 0.25 % Opht drps 1 drop 2 times per day 4. bisoprolol fumarate 10 mg oral tab 1 tab once daily 5. Citracal 200 mg (950 mg) Oral tab 4 tab daily 6. Cortef 30 mg oral tab 2 tabs once daily 7. Cortef 10 mg oral tab 1 tab nightly 8. Cymbalta 60 mg Oral cpDR 1 cap once daily 9. Depakote ER 500 mg ER one tab in AM and two at HS Oral Tb24 1 tab 10. dexamethasone sodium phos (PF) 10 mg/mL injection soln 1 mL At onset of adrenal crisis 11. Flovent 110 mcg/actuation Inhl aero 1 puff 2 times per day 12. folic acid 1 mg Oral tab 5 tab once daily 13. glucosamine-chondroitin 500-400 mg oral tab 3 tab nightly 14. hydroxyzine HCl 25 mg Oral tab as needed 15. Imodium A-D 2 mg oral tab 2 tabs 16. Kineret 100 mg/0.67 mL subcutaneous syrg daily PRN 17. levothyroxine 75 mcg Oral cap 1 cap once daily 18. lisinopril 5 mg Oral tab 2 tabs once daily 19. Mag 64 64 mg oral tab 1 tab daily 20. methotrexate sodium 2.5 mg Oral tab 6 tabs every Sunday 21. mirtazapine 30 mg Oral TbDL nightly 22. Mobic 15 mg oral tab 1 tab once daily 23. multivitamin Oral tab 1 tab daily 24. Nexium 40 mg Oral cpDR 1 cap once daily 25. potassium chloride 10 mEq Oral cpER 2 caps once daily 26. ProAir HFA 90 mcg/actuation inhalation HFAA 1 puff as needed 27. Rozerem 8 mg oral tab 1 tab once daily HS 28. sulfasalazine 500 mg Oral tab 2 tab three times a day 29. Tigan 300 mg Oral cap BID PRN 30. Tylenol 500mg Oral 1 tab as needed 31. Vitamin D Oral 1000 unit daily couple weeks ago 32. voltaren gel as needed 33. Xalatan 0.005 % Opht drop 1 drop once daily 34. Zebeta 10 mg oral tab 2 tabs once daily 35. Zofran (as hydrochloride) 8 mg Oral tab 1 tab every 6 hours as needed - PMHx: adrenal crisis; adrenal insufficiency; Asthma; benign mitral valve prolapse; chronic anemia; Colitis; Fibromyalgia; GERD; Hypertension; Hypothyroidism; IBS; juvenile arthritis; Lupus; Migraines; neuropathy; Seizures; - PSHx: Knee surgery- Left; left great toe; - Social history: Smoking status: Patient states was never smoker of tobacco. No barriers to communication noted, The patient speaks fluent Portuguese. - Family history: Not pertinent. - : The pt / caregiver states he / she is not on anticoagulants. Home medication list is obtained from the patient. - Exposure Risk Screening:: None identified. 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 (152.40 cm); Pain 9/10; 18:28 BP 111 / 54 (auto/); ead 19:00 Pulse 104 MON; Resp 16; Pulse Ox 96% on R/A; ead 21:00 BP 116 / 52 Supine; Pulse 100; tm5 21:00 BP 114 / 54 Sitting; Pulse 102; tm5 21:00 BP 118 / 62 Standing; Pulse 102; tm5 22:42 BP 123 / 56; Pulse 89; Resp 18; Pulse Ox 99% on R/A; Pain 0/10; tm5 02 03:22 BP 116 / 48; Pulse 92; Resp 20; Pulse Ox 98% on R/A; Pain 0/10; tm5 04:41 BP 122 / 58; Pulse 74; Resp 18; Temp 97.8(O); Pulse Ox 99% on R/A; Pain 0/10; tm5 06:19 BP 123 / 58; Pulse 63; Resp 20; Temp 97.6(O); Pulse Ox 98% on R/A; Pain 0/10; tm5 09:36 BP 114 / 57 (auto/); ead 09:36 Pulse 94 MON; Resp 16; Pulse Ox 95% on R/A; ead 10:07 BP 123 / 51 (auto/); ead 10:07 Pulse 88 MON; Pulse Ox 96% ; ead 10:37 BP 100 / 56 (auto/); ead 10:38 Pulse 80 MON; Resp 16; Pulse Ox 96% on R/A; ead 11:07 BP 97 / 53 (auto/); ead 11:08 Pulse 86 MON; Pulse Ox 95% ; ead 12:21 BP 101 / 61; Pulse 74; Resp 16; Temp 98.1; Pulse Ox 96% on R/A; ead 12:37 BP 108 / 54 (auto/); ead 12:38 Pulse 78 MON; Pulse Ox 96% ; ead 13:07 BP 112 / 55 (auto/); ead 13:08 Pulse 100 MON; Resp 16; Pulse Ox 95% on R/A; ead 13:37 BP 106 / 61 (auto/); ead 13:38 Pulse 84 MON; Resp 16; Temp 98.1; Pulse Ox 95% on R/A; ead 07/02 18:06 Body Mass Index 24.02 (55.79 kg, 152.40 cm) bnb MDM: 07/02 19:49 [place] [place] Agreement was scanned into [employer] and attached to record. zo 20:13 IV Saline Lock ordered. gk1 20:13 LR Solution 1000 ml IV at bolus once ordered. gk1 20:13 Orthostatic VS ordered. gk1 20:13 Art Gallery Internship ordered. gk1 20:14 CBC with Diff Ordered. EDMS 20:14 Complete Comphrensive Metabolic Ordered. EDMS 20:14 Magnesium Level Ordered. EDMS 20:14 Phosphorous Level Ordered. EDMS 20:14 Cardiac Injury Profile Ordered. EDMS 20:14 DEPAKOTE Ordered. EDMS 20:14 TSH with Free T4 Ordered. EDMS 20:14 morphine 4 mg IVP once ordered. gk1 20:14 ECG WITH READING ER PHYS+CARDIAG ordered. EDMS 20:15 CT Head Without Contrast Ordered. EDMS 20:17 CT Spine, Lumbar W/o Contrast Ordered. EDMS 20:17 CT Spine,Thoracic W/o Contrast Ordered. EDMS 20:20 CT Spine,Cervical W/o Contrast Ordered. EDMS 20:58 Financial registration complete. zo 22:17 CBC with Diff Reviewed. gk1 22:17 Complete Comphrensive Metabolic Reviewed. gk1 22:17 DEPAKOTE Reviewed. gk1 22:17 TSH with Free T4 Reviewed. gk1 22:17 Magnesium Level Reviewed. gk1 22:17 Phosphorous Level Reviewed. gk1 22:17 Cardiac Injury Profile Reviewed. gk1 23:58 Complete Comphrensive Metabolic Reviewed. gk1 23:58 DEPAKOTE Reviewed. gk1 23:58 TSH with Free T4 Reviewed. gk1 23:58 Magnesium Level Reviewed. gk1 23:58 Phosphorous Level Reviewed. gk1 23:58 Cardiac Injury Profile Reviewed. gk1 23:58 TROPONIN Reviewed. gk1 23:58 CT Head Without Contrast Reviewed. gk1 23:58 CT Spine, Lumbar W/o Contrast Reviewed. gk1 23:58 CT Spine,Thoracic W/o Contrast Reviewed. gk1 23:58 CT Spine,Cervical W/o Contrast Reviewed. gk1 07/03 00:10 Valproic Acid 500 mg IVPB once over 15 mins; dilute in 50mL of NS or D5W ordered. mm11 00:13 UCG by Nursing ordered. gk1 00:13 Urinalysis Ordered. EDMS 00:13 Urine Culture Ordered. EDMS 00:18 morphine 4 mg IVP once ordered. gk1 01:21 Urinalysis Reviewed. gk1 01:49 Meclizine 25 mg PO once ordered. gk1 04:06 Admission / Observation Status ordered. EDMS 04:06 2 GRAM SODIUM DIET ordered. EDMS 04:07 BASIC METABOLIC PROFILE Ordered. EDMS 04:07 MAGNESIUM LEVEL Ordered. EDMS 04:07 COMPLETE BLOOD COUNT Ordered. EDMS 04:07 RESPIRATORY PANEL Ordered. EDMS 04:08 PHYSICAL THERAPY EVAL & TREAT ordered. EDGA Point of Care Testing: Urine : 00:53 hCG Reading: Negative; tm5 Ranges: Administered Medications: 07/02 20:59 Drug: LR 1000 ml [lactated ringers intravenous solution] {Note: LR given at 250cc/hr tm5 due to poor IV access & #24 angio to left foot.} Route: IV; Rate: bolus; Site: left foot; 07/03 01:37 Follow up: IV Status: Completed infusion; IV Intake: 1000ml tm5 07/02 20:59 Drug: morphine 4 mg [morphine 4 mg/mL intravenous cartridge (1 mL)] Route: IVP; Site: tm5 left foot; 21:30 Follow up: Response: No Adverse Reaction; Pain is resolved tm5 07/03 00:30 Drug: Valproic Acid 500 mg [valproate sodium 500 mg/5 mL (100 mg/mL) intravenous tm5 solution] {Note: given IVPB in 50cc NS .} Route: IVPB; Infused Over: 15 mins; Site: left foot; 01:00 Follow up: IV Status: Completed infusion; IV Intake: 50ml tm5 00:30 Drug: morphine 4 mg [morphine 4 mg/mL intravenous cartridge (1 mL)] Route: IVP; Site: tm5 left foot; 01:00 Follow up: Response: No Adverse Reaction; Pain is resolved tm5 01:59 Drug: Meclizine 25 mg [meclizine 12.5 mg tablet (2 tabs)] Route: PO; tm5 03:20 Follow up: Response: No Adverse Reaction; No significant change. tm5 Signatures: Dispatcher [employer] Montrell Cerda Matthew, DO DO mm11 Serene JoseRN RN rs3 Luna VillaRN RN eaMarina Motta, ROUGH AND TRUING MACHINE OPERATOR ROUGH AND TRUING MACHINE OPERATOR rs6 Richard Young, DO gk1 Hayley SilvaRN RN tm5 The chart was reviewed and I authenticate all verbal orders and agree with the evaluation and treatment provided.Corrections: (The following items were deleted from the chart) 07/02 22:25 22:20 TROPONIN+LAB ordered. EDMS EDMS Attachments: 19:49 [facility] [place] Payment Agreement zo MTDD
[2016-07-03] MEDS: NS 1,000 ML IV SCH ×2 (14:01→17:09)
[2016-07-03] MEDS: HEPARIN SOD (PORCINE) 5000 UNITS/ML VIAL SC SCH ×3 (14:18→21:04)
[2016-07-03] MEDS: PANTOPRAZOLE 40MG TAB (PROTONIX) PO SCH (14:18)
[2016-07-03] MEDS: VITAMIN D 1,000 INTERNATIONAL UNITS TABLET PO SCH (14:18)
[2016-07-03] MEDS: LEVOTHYROXINE 0.075 MG TAB (75 MCG) PO SCH (14:19)
[2016-07-03] MEDS: DIVALPROEX 250MG *ER* TAB PO SCH (15:37)
[2016-07-03] MEDS: OLANZapine 10 MG TAB PO SCH (15:37)
[2016-07-03] MEDS: MAGNESIUM CHLORIDE 64 MG TABCR (SLO MAG) PO SCH (15:37)
[2016-07-03] MEDS: HYDROCORTISONE 10 MG TAB PO SCH (15:37)
[2016-07-03 16:00] VITALS: BP_SYST 103; BP_SYST 111; BP_SYST 115; BP_SYST 117; BP_DIAS 56; BP_DIAS 57; BP_DIAS 58
[2016-07-03 20:32] VITALS: BP 127/61
[2016-07-03] MEDS ORDERED: HYDROCORTISONE 10 MG TAB PO SCH (21:00)
[2016-07-03] MEDS ORDERED: BISOPROLOL FUMARATE 10 MG TAB PO SCH (21:00)
[2016-07-03] MEDS ORDERED: POTASSIUM CHLORIDE 10 MEQ SR TABLET PO SCH (21:00)
[2016-07-03] MEDS ORDERED: FOLIC ACID 1 MG TAB PO SCH (21:00)
[2016-07-03] MEDS ORDERED: DIVALPROEX 250MG *ER* TAB PO SCH (21:00)
[2016-07-03] MEDS ORDERED: RAMELTEON 8 MG TAB (ROZEREM) PO SCH (21:00)
[2016-07-03] MEDS ORDERED: DULoxetine 30 MG CAP (CYMBALTA) PO SCH (21:00)
[2016-07-03] MEDS ORDERED: MIRTAZAPINE 15 MG TAB PO SCH (21:00)
[2016-07-03 21:06] VITALS: BP 127/61
[2016-07-04 00:01] VITALS: BP_SYST 103; BP_SYST 105; BP_SYST 127; BP_DIAS 55; BP_DIAS 57; BP_DIAS 67
[2016-07-04 05:15] VITALS: BP 109/55
[2016-07-04] MEDS: LEVOTHYROXINE 0.075 MG TAB (75 MCG) PO SCH (05:19)
[2016-07-04] MEDS: HEPARIN SOD (PORCINE) 5000 UNITS/ML VIAL SC SCH ×2 (05:20→14:00)
[2016-07-04 05:53] LABS: MEAN CORPUSCULAR HEMOGLOBIN 25.5 pg (27.0-33.0); MEAN CORPUSCULAR HGB CONC 31.3 g/dl (32.0-36.5); MEAN CORPUSCULAR VOLUME 81.6 fl (80.0-96.0); RED CELL DISTRIBUTION WIDTH 16.1 % (11.5-14.5); WHITE BLOOD COUNT 4.2 K/mm3 (4.0-10.0)
[2016-07-04 06:07] LABS: ANION GAP 9 MEQ/L (8-16); BLOOD UREA NITROGEN 8 MG/DL (7-18); CALCIUM LEVEL 8.1 MG/DL (8.5-10.1); CARBON DIOXIDE LEVEL 22 MEQ/L (21-32); CHLORIDE LEVEL 110 MEQ/L (98-107); CREATININE FOR GFR 0.87 MG/DL (0.55-1.02); GLOMERULAR FILTRATION RATE > 60.0 (>60); GLUCOSE, FASTING 91 MG/DL (70-105); MAGNESIUM LEVEL 1.8 MG/DL (1.8-2.4); POTASSIUM SERUM 4.4 MEQ/L (3.5-5.1); SODIUM LEVEL 141 MEQ/L (136-145)
[2016-07-04 07:30] VITALS: BP 103/61
[2016-07-04] MEDS: FLUTICASONE HFA 110 MCG 12 GM INHALER (FLOVENT) INH SCH (08:29)
[2016-07-04] MEDS: OLANZapine 10 MG TAB PO SCH (09:00)
[2016-07-04] MEDS: MAGNESIUM CHLORIDE 64 MG TABCR (SLO MAG) PO SCH (09:00)
[2016-07-04] MEDS: VITAMIN D 1,000 INTERNATIONAL UNITS TABLET PO SCH (09:47)
[2016-07-04] MEDS: HYDROCORTISONE 10 MG TAB PO SCH (09:47)
[2016-07-04] MEDS: DIVALPROEX 250MG *ER* TAB PO SCH (09:47)
[2016-07-04] MEDS: PANTOPRAZOLE 40MG TAB (PROTONIX) PO SCH (09:47)
[2016-07-04] MEDS ORDERED: DEPA250T2 PO ×2 (11:11)
--- NOTE | 2016-07-04 17:28 | DSES ---
DATE OF ADMISSION: 07/03/2016 DATE OF DISCHARGE: 07/04/2016 NEUROLOGIST: Dr. Spence, covered by Dr. Gordon. PRIMARY CARE PROVIDER: Dr. Fredo Patel FINAL DIAGNOSES: 1. Recurrent seizure likely secondary to subtherapeutic Depakote and volume depletion. 2. Acute kidney injury (KELLEY). 3. Hypertension. 4. Juvenile onset rheumatoid arthritis. 5. Adrenal insufficiency. 6. Hypothyroidism. 7. Chronic back pain. 8. Gastroesophageal reflux disease (GERD). HISTORY OF PRESENT ILLNESS: This is a 40-year-old female patient with history of juvenile onset rheumatoid arthritis, seizure disorder, adrenal insufficiency, chronic anemia, fibromyalgia, gastroesophageal reflux disease, hypertension, hypothyroidism, lupus, chronic migraine, who presented complaining of three episodes of seizure over the last 24 hours. Patient has suffered from epilepsy since age 19, follows with Dr. Spence of neurology as outpatient for management. She has had three similar occurrences over the past six months and noted that her seizures are usually precipitated by dehydration or infection with low level of valproic acid level noted on laboratory. As per patient, she had just recently gotten over a sinus infection which was treated with antibiotics. She stated that the three seizures lasted approximately one minute, one of which was witnessed by the patient's mother. Patient was noted to be on the ground with jerking of the neck and back on the ground, with jerking movement and some tongue biting was noticed. No urinary or fecal incontinence. Patient did report hitting her neck and back during the episode. EEG was done a month ago. She was told that there was no acute finding as per patient. Patient denies any fevers or chills, shortness of breath, chest pain, pressure or discomfort. Denies any vision change, numbness or tingling sensation. Denies any nausea, vomiting, or abdominal pain. CT scan of the head, cervical, thoracic, lumbar spine was done in the emergency room with no acute finding. Patient's valproic acid was noted to be subtherapeutic. Neurology was consulted. Dosage of medication was adjusted. HOSPITAL COURSE: Patient was admitted to the hospital. CT scan was appreciated. Neurology was consulted. Medication was adjusted. Patient did not have further episode of seizure, currently feels comfortable, back to her baseline. IV fluids were initially provided. Vital signs were followed. Case discussed with Dr. Gordon who is comfortable with discharging the patient at this time. Patient tolerating oral and is ready for discharge for further followup as outpatient. VITAL SIGNS: Temperature 97.1, pulse 64, respiratory rate 20, blood pressure 103/61, pulse oximetry 97% on room air. LABORATORY DATA: WBC 4.2, hemoglobin and hematocrit 9.6/30.5, platelets 268. Chemistry: Sodium 141, potassium 4.4, chloride 110, bicarbonate 22, BUN 8, creatinine 0.87 down from 1.23. DISCHARGE MEDICATIONS: - Depakote 1250 mg by mouth at bedtime and 750 mg by mouth in the morning - Ventolin inhaler every six hours as needed - betaxolol eye drop twice a day - bisoprolol 10 mg by mouth at bedtime - vitamin D 1000 units by mouth daily - duloxetine 60 mg by mouth at bedtime - Nexium 40 mg by mouth daily - Flovent inhalation twice a day - folic acid 5 mg by mouth at bedtime - Solu-Cortef 20 mg by mouth daily and 10 mg by mouth at bedtime - hydroxyzine 25 mg by mouth daily as needed - Xalatan 0.005% eye drop at bedtime - Synthroid 75 mcg by mouth daily - lisinopril 10 mg by mouth at bedtime - magnesium chloride 64 mg by mouth daily - Mobic 15 mg by mouth daily - methotrexate 15 mg by mouth once a week - mirtazapine 30 mg by mouth at bedtime - multivitamin one tablet by mouth daily - olanzapine 10 mg by mouth daily - Zofran 8 mg by mouth every six hours as needed - potassium tablets 20 mEq by mouth at bedtime - Rozerem 8 mg by mouth at bedtime - sulfasalazine 1000 mg by mouth three times a day - Tigan 300 mg by mouth twice a day as needed for nausea DISCHARGE INSTRUCTIONS: The patient is instructed to avoid driving or operating heavy equipment. Return to the hospital if symptoms return. Followup with neurology as outpatient in one week and followup with primary care provider in one week as well.
--- NOTE | 2016-07-05 14:49 | EDDOCDS ---
Physician Documentation [facility] Name: Demi Burger Age: 40 yrs Sex: Female : 1975 Arrival Date: 07/02/2016 Time: 18:04 Bed Admit Hold Private MD: Disposition: 07/03 02:20 I have independently interviewed and examined the patient, and I agree with the mm11 investigation, diagnosis and treatment plan as documented by the Resident. Disposition: 07/03/16 04:22 Hospitalization ordered by Richard Biswas for Inpatient Admission. Preliminary diagnosis is Dizziness and giddiness. - Bed requested for PCU. - Status is Inpatient Admission. ead - Condition is Stable. - Problem is new. - Symptoms are unchanged. Historical: - Allergies: Aspirin (Hematuria); Bentyl ("feels like i want to pull my skin off"); Biaxin (Rash); GOLD SALTS (Hematuria); Ibuprofen (Hematuria); Toradol (Hematuria); Ultram (Seizures); Wellbutrin (Seizures); - Home Meds: 1. albuterol sulfate 2.5 mg /3 mL (0.083 %) Inhl HFAA 3 mL prn 2. bactroban cream 2% as needed 3. Betoptic S 0.25 % Opht drps 1 drop 2 times per day 4. bisoprolol fumarate 10 mg oral tab 1 tab once daily 5. Citracal 200 mg (950 mg) Oral tab 4 tab daily 6. Cortef 30 mg oral tab 2 tabs once daily 7. Cortef 10 mg oral tab 1 tab nightly 8. Cymbalta 60 mg Oral cpDR 1 cap once daily 9. Depakote ER 500 mg ER one tab in AM and two at HS Oral Tb24 1 tab 10. dexamethasone sodium phos (PF) 10 mg/mL injection soln 1 mL At onset of adrenal crisis 11. Flovent 110 mcg/actuation Inhl aero 1 puff 2 times per day 12. folic acid 1 mg Oral tab 5 tab once daily 13. glucosamine-chondroitin 500-400 mg oral tab 3 tab nightly 14. hydroxyzine HCl 25 mg Oral tab as needed 15. Imodium A-D 2 mg oral tab 2 tabs 16. Kineret 100 mg/0.67 mL subcutaneous syrg daily PRN 17. levothyroxine 75 mcg Oral cap 1 cap once daily 18. lisinopril 5 mg Oral tab 2 tabs once daily 19. Mag 64 64 mg oral tab 1 tab daily 20. methotrexate sodium 2.5 mg Oral tab 6 tabs every Sunday 21. mirtazapine 30 mg Oral TbDL nightly 22. Mobic 15 mg oral tab 1 tab once daily 23. multivitamin Oral tab 1 tab daily 24. Nexium 40 mg Oral cpDR 1 cap once daily 25. potassium chloride 10 mEq Oral cpER 2 caps once daily 26. ProAir HFA 90 mcg/actuation inhalation HFAA 1 puff as needed 27. Rozerem 8 mg oral tab 1 tab once daily HS 28. sulfasalazine 500 mg Oral tab 2 tab three times a day 29. Tigan 300 mg Oral cap BID PRN 30. Tylenol 500mg Oral 1 tab as needed 31. Vitamin D Oral 1000 unit daily couple weeks ago 32. voltaren gel as needed 33. Xalatan 0.005 % Opht drop 1 drop once daily 34. Zebeta 10 mg oral tab 2 tabs once daily 35. Zofran (as hydrochloride) 8 mg Oral tab 1 tab every 6 hours as needed - PMHx: adrenal crisis; adrenal insufficiency; Asthma; benign mitral valve prolapse; chronic anemia; Colitis; Fibromyalgia; GERD; Hypertension; Hypothyroidism; IBS; juvenile arthritis; Lupus; Migraines; neuropathy; Seizures; - PSHx: Knee surgery- Left; left great toe; - Social history: Smoking status: Patient states was never smoker of tobacco. No barriers to communication noted, The patient speaks fluent Luxembourgish. - Family history: Not pertinent. - : The pt / caregiver states he / she is not on anticoagulants. Home medication list is obtained from the patient. - Exposure Risk Screening:: None identified. QUALITY ENG: 07/02 18:13 LMP 06/09/2016 rs3 Vital Signs: 18:06 BP 144 / 54 LA Sitting (auto/reg); Pulse 118; Resp 18; Temp 97.8(T); Pulse Ox 98% on bnb R/A; Weight 55.79 kg / 123 lbs; Height 5 ft. (152.40 cm); Pain 9/10; 18:28 BP 111 / 54 (auto/); ead 19:00 Pulse 104 MON; Resp 16; Pulse Ox 96% on R/A; ead 21:00 BP 116 / 52 Supine; Pulse 100; tm5 21:00 BP 114 / 54 Sitting; Pulse 102; tm5 21:00 BP 118 / 62 Standing; Pulse 102; tm5 22:42 BP 123 / 56; Pulse 89; Resp 18; Pulse Ox 99% on R/A; Pain 0/10; tm5 02 03:22 BP 116 / 48; Pulse 92; Resp 20; Pulse Ox 98% on R/A; Pain 0/10; tm5 04:41 BP 122 / 58; Pulse 74; Resp 18; Temp 97.8(O); Pulse Ox 99% on R/A; Pain 0/10; tm5 06:19 BP 123 / 58; Pulse 63; Resp 20; Temp 97.6(O); Pulse Ox 98% on R/A; Pain 0/10; tm5 09:36 BP 114 / 57 (auto/); ead 09:36 Pulse 94 MON; Resp 16; Pulse Ox 95% on R/A; ead 10:07 BP 123 / 51 (auto/); ead 10:07 Pulse 88 MON; Pulse Ox 96% ; ead 10:37 BP 100 / 56 (auto/); ead 10:38 Pulse 80 MON; Resp 16; Pulse Ox 96% on R/A; ead 11:07 BP 97 / 53 (auto/); ead 11:08 Pulse 86 MON; Pulse Ox 95% ; ead 12:21 BP 101 / 61; Pulse 74; Resp 16; Temp 98.1; Pulse Ox 96% on R/A; ead 12:37 BP 108 / 54 (auto/); ead 12:38 Pulse 78 MON; Pulse Ox 96% ; ead 13:07 BP 112 / 55 (auto/); ead 13:08 Pulse 100 MON; Resp 16; Pulse Ox 95% on R/A; ead 13:37 BP 106 / 61 (auto/); ead 13:38 Pulse 84 MON; Resp 16; Temp 98.1; Pulse Ox 95% on R/A; ead 07/02 18:06 Body Mass Index 24.02 (55.79 kg, 152.40 cm) bnb MDM: 07/02 19:49 [facility] [place] was scanned into [employer] and attached to record. zo 20:13 IV Saline Lock ordered. gk1 20:13 LR Solution 1000 ml IV at bolus once ordered. gk1 20:13 Orthostatic VS ordered. gk1 20:13 Leaf Conditioner Helper ordered. gk1 20:14 CBC with Diff Ordered. EDMS 20:14 Complete Comphrensive Metabolic Ordered. EDMS 20:14 Magnesium Level Ordered. EDMS 20:14 Phosphorous Level Ordered. EDMS 20:14 Cardiac Injury Profile Ordered. EDMS 20:14 DEPAKOTE Ordered. EDMS 20:14 TSH with Free T4 Ordered. EDMS 20:14 morphine 4 mg IVP once ordered. gk1 20:14 ECG WITH READING ER PHYS+CARDIAG ordered. EDMS 20:15 CT Head Without Contrast Ordered. EDMS 20:17 CT Spine, Lumbar W/o Contrast Ordered. EDMS 20:17 CT Spine,Thoracic W/o Contrast Ordered. EDMS 20:20 CT Spine,Cervical W/o Contrast Ordered. EDMS 20:58 Financial registration complete. zo 22:17 CBC with Diff Reviewed. gk1 22:17 Complete Comphrensive Metabolic Reviewed. gk1 22:17 DEPAKOTE Reviewed. gk1 22:17 TSH with Free T4 Reviewed. gk1 22:17 Magnesium Level Reviewed. gk1 22:17 Phosphorous Level Reviewed. gk1 22:17 Cardiac Injury Profile Reviewed. gk1 23:58 Complete Comphrensive Metabolic Reviewed. gk1 23:58 DEPAKOTE Reviewed. gk1 23:58 TSH with Free T4 Reviewed. gk1 23:58 Magnesium Level Reviewed. gk1 23:58 Phosphorous Level Reviewed. gk1 23:58 Cardiac Injury Profile Reviewed. gk1 23:58 TROPONIN Reviewed. gk1 23:58 CT Head Without Contrast Reviewed. gk1 23:58 CT Spine, Lumbar W/o Contrast Reviewed. gk1 23:58 CT Spine,Thoracic W/o Contrast Reviewed. gk1 23:58 CT Spine,Cervical W/o Contrast Reviewed. gk1 07/03 00:10 Valproic Acid 500 mg IVPB once over 15 mins; dilute in 50mL of NS or D5W ordered. mm11 00:13 UCG by Nursing ordered. gk1 00:13 Urinalysis Ordered. EDMS 00:13 Urine Culture Ordered. EDMS 00:18 morphine 4 mg IVP once ordered. gk1 01:21 Urinalysis Reviewed. gk1 01:49 Meclizine 25 mg PO once ordered. gk1 04:06 Admission / Observation Status ordered. EDMS 04:06 2 GRAM SODIUM DIET ordered. EDMS 04:07 BASIC METABOLIC PROFILE Ordered. EDMS 04:07 MAGNESIUM LEVEL Ordered. EDMS 04:07 COMPLETE BLOOD COUNT Ordered. EDMS 04:07 RESPIRATORY PANEL Ordered. EDMS 04:08 PHYSICAL THERAPY EVAL & TREAT ordered. EDMS 14:32 T-Sheet-- Draft Copy was scanned into [employer] and attached to record. 07/04 14:26 ECG/EKG was scanned into [employer] and attached to record. gb 14:26 Radiology Report was scanned into [employer] and attached to record. Point of Care Testing: Urine : 07/03 00:53 hCG Reading: Negative; tm5 Ranges: Administered Medications: 07/02 20:59 Drug: LR 1000 ml [lactated ringers intravenous solution] {Note: LR given at 250cc/hr tm5 due to poor IV access & #24 angio to left foot.} Route: IV; Rate: bolus; Site: left foot; 07/03 01:37 Follow up: IV Status: Completed infusion; IV Intake: 1000ml tm5 07/02 20:59 Drug: morphine 4 mg [morphine 4 mg/mL intravenous cartridge (1 mL)] Route: IVP; Site: tm5 left foot; 21:30 Follow up: Response: No Adverse Reaction; Pain is resolved tm5 07/03 00:30 Drug: Valproic Acid 500 mg [valproate sodium 500 mg/5 mL (100 mg/mL) intravenous tm5 solution] {Note: given IVPB in 50cc NS .} Route: IVPB; Infused Over: 15 mins; Site: left foot; 01:00 Follow up: IV Status: Completed infusion; IV Intake: 50ml tm5 00:30 Drug: morphine 4 mg [morphine 4 mg/mL intravenous cartridge (1 mL)] Route: IVP; Site: tm5 left foot; 01:00 Follow up: Response: No Adverse Reaction; Pain is resolved tm5 01:59 Drug: Meclizine 25 mg [meclizine 12.5 mg tablet (2 tabs)] Route: PO; tm5 03:20 Follow up: Response: No Adverse Reaction; No significant change. tm5 Signatures: Dispatcher [employer] EDMS Radha Bernardo, Cheo Reg gb Montrell Cochran Matthew, DO DO mm11 Serene Jose,RN RN rs3 Luna Villa,RN RN ead Marina Gomez, CANVASS MANAGER CANVASS MANAGER rs6 Richard Young, DO DO gk1 Hayley Silva,RN RN tm5 The chart was reviewed and I authenticate all verbal orders and agree with the evaluation and treatment provided.Corrections: (The following items were deleted from the chart) 07/02 22:25 22:20 TROPONIN+LAB ordered. EDMS EDMS Attachments: 19:49 [facility] [place] Agreement zo 07/03 14:32 T-Sheet-- Draft Copy gb 07/04 14:26 ECG/EKG gb Chart Complete MTDD
--- NOTE | 2016-07-05 14:49 | EDDOCDS ---
Physician Documentation [facility] Name: Demi Burger Age: 40 yrs Sex: Female : 1975 Arrival Date: 07/02/2016 Time: 18:04 Bed Admit Hold Private MD: Disposition: 07/03 02:20 I have independently interviewed and examined the patient, and I agree with the mm11 investigation, diagnosis and treatment plan as documented by the Resident. Disposition: 07/03/16 04:22 Hospitalization ordered by Richard Biswas for Inpatient Admission. Preliminary diagnosis is Dizziness and giddiness. - Bed requested for PCU. - Status is Inpatient Admission. ead - Condition is Stable. - Problem is new. - Symptoms are unchanged. Historical: - Allergies: Aspirin (Hematuria); Bentyl ("feels like i want to pull my skin off"); Biaxin (Rash); GOLD SALTS (Hematuria); Ibuprofen (Hematuria); Toradol (Hematuria); Ultram (Seizures); Wellbutrin (Seizures); - Home Meds: 1. albuterol sulfate 2.5 mg /3 mL (0.083 %) Inhl HFAA 3 mL prn 2. bactroban cream 2% as needed 3. Betoptic S 0.25 % Opht drps 1 drop 2 times per day 4. bisoprolol fumarate 10 mg oral tab 1 tab once daily 5. Citracal 200 mg (950 mg) Oral tab 4 tab daily 6. Cortef 30 mg oral tab 2 tabs once daily 7. Cortef 10 mg oral tab 1 tab nightly 8. Cymbalta 60 mg Oral cpDR 1 cap once daily 9. Depakote ER 500 mg ER one tab in AM and two at HS Oral Tb24 1 tab 10. dexamethasone sodium phos (PF) 10 mg/mL injection soln 1 mL At onset of adrenal crisis 11. Flovent 110 mcg/actuation Inhl aero 1 puff 2 times per day 12. folic acid 1 mg Oral tab 5 tab once daily 13. glucosamine-chondroitin 500-400 mg oral tab 3 tab nightly 14. hydroxyzine HCl 25 mg Oral tab as needed 15. Imodium A-D 2 mg oral tab 2 tabs 16. Kineret 100 mg/0.67 mL subcutaneous syrg daily PRN 17. levothyroxine 75 mcg Oral cap 1 cap once daily 18. lisinopril 5 mg Oral tab 2 tabs once daily 19. Mag 64 64 mg oral tab 1 tab daily 20. methotrexate sodium 2.5 mg Oral tab 6 tabs every Sunday 21. mirtazapine 30 mg Oral TbDL nightly 22. Mobic 15 mg oral tab 1 tab once daily 23. multivitamin Oral tab 1 tab daily 24. Nexium 40 mg Oral cpDR 1 cap once daily 25. potassium chloride 10 mEq Oral cpER 2 caps once daily 26. ProAir HFA 90 mcg/actuation inhalation HFAA 1 puff as needed 27. Rozerem 8 mg oral tab 1 tab once daily HS 28. sulfasalazine 500 mg Oral tab 2 tab three times a day 29. Tigan 300 mg Oral cap BID PRN 30. Tylenol 500mg Oral 1 tab as needed 31. Vitamin D Oral 1000 unit daily couple weeks ago 32. voltaren gel as needed 33. Xalatan 0.005 % Opht drop 1 drop once daily 34. Zebeta 10 mg oral tab 2 tabs once daily 35. Zofran (as hydrochloride) 8 mg Oral tab 1 tab every 6 hours as needed - PMHx: adrenal crisis; adrenal insufficiency; Asthma; benign mitral valve prolapse; chronic anemia; Colitis; Fibromyalgia; GERD; Hypertension; Hypothyroidism; IBS; juvenile arthritis; Lupus; Migraines; neuropathy; Seizures; - PSHx: Knee surgery- Left; left great toe; - Social history: Smoking status: Patient states was never smoker of tobacco. No barriers to communication noted, The patient speaks fluent Upper Sorbian. - Family history: Not pertinent. - : The pt / caregiver states he / she is not on anticoagulants. Home medication list is obtained from the patient. - Exposure Risk Screening:: None identified. 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 (152.40 cm); Pain 9/10; 18:28 BP 111 / 54 (auto/); ead 19:00 Pulse 104 MON; Resp 16; Pulse Ox 96% on R/A; ead 21:00 BP 116 / 52 Supine; Pulse 100; tm5 21:00 BP 114 / 54 Sitting; Pulse 102; tm5 21:00 BP 118 / 62 Standing; Pulse 102; tm5 22:42 BP 123 / 56; Pulse 89; Resp 18; Pulse Ox 99% on R/A; Pain 0/10; tm5 02 03:22 BP 116 / 48; Pulse 92; Resp 20; Pulse Ox 98% on R/A; Pain 0/10; tm5 04:41 BP 122 / 58; Pulse 74; Resp 18; Temp 97.8(O); Pulse Ox 99% on R/A; Pain 0/10; tm5 06:19 BP 123 / 58; Pulse 63; Resp 20; Temp 97.6(O); Pulse Ox 98% on R/A; Pain 0/10; tm5 09:36 BP 114 / 57 (auto/); ead 09:36 Pulse 94 MON; Resp 16; Pulse Ox 95% on R/A; ead 10:07 BP 123 / 51 (auto/); ead 10:07 Pulse 88 MON; Pulse Ox 96% ; ead 10:37 BP 100 / 56 (auto/); ead 10:38 Pulse 80 MON; Resp 16; Pulse Ox 96% on R/A; ead 11:07 BP 97 / 53 (auto/); ead 11:08 Pulse 86 MON; Pulse Ox 95% ; ead 12:21 BP 101 / 61; Pulse 74; Resp 16; Temp 98.1; Pulse Ox 96% on R/A; ead 12:37 BP 108 / 54 (auto/); ead 12:38 Pulse 78 MON; Pulse Ox 96% ; ead 13:07 BP 112 / 55 (auto/); ead 13:08 Pulse 100 MON; Resp 16; Pulse Ox 95% on R/A; ead 13:37 BP 106 / 61 (auto/); ead 13:38 Pulse 84 MON; Resp 16; Temp 98.1; Pulse Ox 95% on R/A; ead 07/02 18:06 Body Mass Index 24.02 (55.79 kg, 152.40 cm) bnb MDM: 07/02 19:49 [facility] Agreement was scanned into [employer] and attached to record. zo 20:13 IV Saline Lock ordered. gk1 20:13 LR Solution 1000 ml IV at bolus once ordered. gk1 20:13 Orthostatic VS ordered. gk1 20:13 First Aid Instructor ordered. gk1 20:14 CBC with Diff Ordered. EDMS 20:14 Complete Comphrensive Metabolic Ordered. EDMS 20:14 Magnesium Level Ordered. EDMS 20:14 Phosphorous Level Ordered. EDMS 20:14 Cardiac Injury Profile Ordered. EDMS 20:14 DEPAKOTE Ordered. EDMS 20:14 TSH with Free T4 Ordered. EDMS 20:14 morphine 4 mg IVP once ordered. gk1 20:14 ECG WITH READING ER PHYS+CARDIAG ordered. EDMS 20:15 CT Head Without Contrast Ordered. EDMS 20:17 CT Spine, Lumbar W/o Contrast Ordered. EDMS 20:17 CT Spine,Thoracic W/o Contrast Ordered. EDMS 20:20 CT Spine,Cervical W/o Contrast Ordered. EDMS 20:58 Financial registration complete. zo 22:17 CBC with Diff Reviewed. gk1 22:17 Complete Comphrensive Metabolic Reviewed. gk1 22:17 DEPAKOTE Reviewed. gk1 22:17 TSH with Free T4 Reviewed. gk1 22:17 Magnesium Level Reviewed. gk1 22:17 Phosphorous Level Reviewed. gk1 22:17 Cardiac Injury Profile Reviewed. gk1 23:58 Complete Comphrensive Metabolic Reviewed. gk1 23:58 DEPAKOTE Reviewed. gk1 23:58 TSH with Free T4 Reviewed. gk1 23:58 Magnesium Level Reviewed. gk1 23:58 Phosphorous Level Reviewed. gk1 23:58 Cardiac Injury Profile Reviewed. gk1 23:58 TROPONIN Reviewed. gk1 23:58 CT Head Without Contrast Reviewed. gk1 23:58 CT Spine, Lumbar W/o Contrast Reviewed. gk1 23:58 CT Spine,Thoracic W/o Contrast Reviewed. gk1 23:58 CT Spine,Cervical W/o Contrast Reviewed. gk1 07/03 00:10 Valproic Acid 500 mg IVPB once over 15 mins; dilute in 50mL of NS or D5W ordered. mm11 00:13 UCG by Nursing ordered. gk1 00:13 Urinalysis Ordered. EDMS 00:13 Urine Culture Ordered. EDMS 00:18 morphine 4 mg IVP once ordered. gk1 01:21 Urinalysis Reviewed. gk1 01:49 Meclizine 25 mg PO once ordered. gk1 04:06 Admission / Observation Status ordered. EDMS 04:06 2 GRAM SODIUM DIET ordered. EDMS 04:07 BASIC METABOLIC PROFILE Ordered. EDMS 04:07 MAGNESIUM LEVEL Ordered. EDMS 04:07 COMPLETE BLOOD COUNT Ordered. EDMS 04:07 RESPIRATORY PANEL Ordered. EDMS 04:08 PHYSICAL THERAPY EVAL & TREAT ordered. EDMS 14:32 T-Sheet-- Draft Copy was scanned into [employer] and attached to record. 07/04 14:26 ECG/EKG was scanned into [email or web address] and attached to record. gb 14:26 Radiology Report was scanned into [email or web address] and attached to record. Point of Care Testing: Urine : 07/03 00:53 hCG Reading: Negative; tm5 Ranges: Administered Medications: 07/02 20:59 Drug: LR 1000 ml [lactated ringers intravenous solution] {Note: LR given at 250cc/hr tm5 due to poor IV access & #24 angio to left foot.} Route: IV; Rate: bolus; Site: left foot; 07/03 01:37 Follow up: IV Status: Completed infusion; IV Intake: 1000ml tm5 07/02 20:59 Drug: morphine 4 mg [morphine 4 mg/mL intravenous cartridge (1 mL)] Route: IVP; Site: tm5 left foot; 21:30 Follow up: Response: No Adverse Reaction; Pain is resolved tm5 07/03 00:30 Drug: Valproic Acid 500 mg [valproate sodium 500 mg/5 mL (100 mg/mL) intravenous tm5 solution] {Note: given IVPB in 50cc NS .} Route: IVPB; Infused Over: 15 mins; Site: left foot; 01:00 Follow up: IV Status: Completed infusion; IV Intake: 50ml tm5 00:30 Drug: morphine 4 mg [morphine 4 mg/mL intravenous cartridge (1 mL)] Route: IVP; Site: tm5 left foot; 01:00 Follow up: Response: No Adverse Reaction; Pain is resolved tm5 01:59 Drug: Meclizine 25 mg [meclizine 12.5 mg tablet (2 tabs)] Route: PO; tm5 03:20 Follow up: Response: No Adverse Reaction; No significant change. tm5 Signatures: Dispatcher [employer] EDMS Radha Bernardo, Cheo Reg gb Montrell Cochran Matthew, DO DO mm11 Serene Jose,RN RN rs3 Luna Villa,RN RN ead Marina Gomez, GRAPHIC USER INTERFACE DESIGNER GRAPHIC USER INTERFACE DESIGNER rs6 Richard Young, DO DO gk1 Hayley Silva,RN RN tm5 The chart was reviewed and I authenticate all verbal orders and agree with the evaluation and treatment provided.Corrections: (The following items were deleted from the chart) 07/02 22:25 22:20 TROPONIN+LAB ordered. EDMS EDMS Attachments: 19:49 [facility] Agreement zo 07/03 14:32 T-Sheet-- Draft Copy gb 07/04 14:26 ECG/EKG gb Chart Complete MTDD
--- NOTE | 2016-07-05 14:50 | EDDOCDS ---
Nurse's Notes [facility] Name: Demi Patterson Age: 40 yrs Sex: Female : 1975 Arrival Date: 07/02/2016 Time: 18:04 Bed Admit Hold Private MD: Diagnosis: Dizziness and giddiness Presentation: 07/02 18:08 Presenting complaint: Patient states: have not recovered from dehydration for 2 weeks. rs3 had 3 seizures in 2 days. Reports of lower back pain and headache. Adult Sepsis Screening: The patient does not have new or worsening altered mentation. Patient's respiratory rate is less than 22. Systolic blood pressure is greater than 100. Patient has a qSOFA score of 0- Negative Sepsis Screen. Suicide/Homicide risk assessment- the patient denies having any suicidal and/or homicidal ideations and does not present with any other emotional, behavioral or mental health complaints. Status: Patient is not a bilingual customer service specialist or dependent. Transition of care: patient was not received from another setting of care. 18:08 Acuity: EULA Level 3 rs3 18:08 Method Of Arrival: Wheelchair rs3 Triage Assessment: 18:13 General: Appears in no apparent distress. Pain: Location: lumbar area. HIV screening NA rs3 for this visit Offered previously. 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 albuterol sulfate 2.5 mg /3 mL (0.083 %) Inhl HFAA 3 mL prn 2. bactroban cream 2% as needed 3. Betoptic S 0.25 % Opht drps 1 drop 2 times per day 4. bisoprolol fumarate 10 mg oral tab 1 tab once daily 5. Citracal 200 mg (950 mg) Oral tab 4 tab daily 6. Cortef 30 mg oral tab 2 tabs once daily 7. Cortef 10 mg oral tab 1 tab nightly 8. Cymbalta 60 mg Oral cpDR 1 cap once daily 9. Depakote ER 500 mg ER one tab in AM and two at HS Oral Tb24 1 tab 10. dexamethasone sodium phos (PF) 10 mg/mL injection soln 1 mL At onset of adrenal crisis 11. Flovent 110 mcg/actuation Inhl aero 1 puff 2 times per day 12. folic acid 1 mg Oral tab 5 tab once daily 13. glucosamine-chondroitin 500-400 mg oral tab 3 tab nightly 14. hydroxyzine HCl 25 mg Oral tab as needed 15. Imodium A-D 2 mg oral tab 2 tabs 16. Kineret 100 mg/0.67 mL subcutaneous syrg daily PRN 17. levothyroxine 75 mcg Oral cap 1 cap once daily 18. lisinopril 5 mg Oral tab 2 tabs once daily 19. Mag 64 64 mg oral tab 1 tab daily 20. methotrexate sodium 2.5 mg Oral tab 6 tabs every Sunday 21. mirtazapine 30 mg Oral TbDL nightly 22. Mobic 15 mg oral tab 1 tab once daily 23. multivitamin Oral tab 1 tab daily 24. Nexium 40 mg Oral cpDR 1 cap once daily 25. potassium chloride 10 mEq Oral cpER 2 caps once daily 26. ProAir HFA 90 mcg/actuation inhalation HFAA 1 puff as needed 27. Rozerem 8 mg oral tab 1 tab once daily HS 28. sulfasalazine 500 mg Oral tab 2 tab three times a day 29. Tigan 300 mg Oral cap BID PRN 30. Tylenol 500mg Oral 1 tab as needed 31. Vitamin D Oral 1000 unit daily couple weeks ago 32. voltaren gel as needed 33. Xalatan 0.005 % Opht drop 1 drop once daily 34. Zebeta 10 mg oral tab 2 tabs once daily 35. Zofran (as hydrochloride) 8 mg Oral tab 1 tab every 6 hours as needed - PMHx: adrenal crisis; adrenal insufficiency; Asthma; benign mitral valve prolapse; chronic anemia; Colitis; Fibromyalgia; GERD; Hypertension; Hypothyroidism; IBS; juvenile arthritis; Lupus; Migraines; neuropathy; Seizures; - PSHx: Knee surgery- Left; left great toe; - Social history: Smoking status: Patient states was never smoker of tobacco. No barriers to communication noted, The patient speaks fluent [place]. - Family history: Not pertinent. - : The pt / caregiver states he / she is not on anticoagulants. Home medication list is obtained from the patient. - Exposure Risk Screening:: None identified. Screenin:07 Screening information is obtained from the patient. 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 Assistance ADL's: requires no assistance with activities of daily living. Abuse/DV Screen: The patient / caregiver reports he/she is: not in a situation that causes fear, pain or injury. Nutritional screening: No deficits noted. Advance Directives: There is no active DNR order. home support is adequate. Assessment: 18:45 General: Appears in no apparent distress, Behavior is appropriate for age, cooperative. ead Pain: Location: back and lumbar area. Neurological: Level of Consciousness is awake, alert, obeys commands, Oriented to person, place, time, Reports headache. Cardiovascular: Chest pain is denied. Respiratory: Airway is patent Respiratory effort is even, unlabored. Respiratory: Denies shortness of breath. GI: Denies nausea, vomiting, pain. Derm: Skin is pink, warm & dry. 19:15 Reassessment: Patient appears in no apparent distress at this time. Patient states tm5 symptoms have improved. no seizure like activity since pt's arrival in the ER, seizure precautions remain in place, will continue to monitor, pt is awaiting MD for evaluation. 19:52 General: still awaiting MD orders, no changes in assessment at this time . tm5 21:01 Cardiovascular: Rhythm is sinus tachycardia No ectopy. tm5 22:44 General: pt sitting up in bed playing on her laptop computer asking for something to tm5 drink, no s/s of any distress, IV fluids infusing without any difficulties noted, no seizure activity noted since pt's arrival in ER. 23:12 General: Ice water provided to pt per MD's approval . tm5 07/03 01:06 Reassessment: Patient appears in no apparent distress at this time. Patient states tm5 feeling better. Patient states symptoms have improved. 03:20 Reassessment: Patient appears in no apparent distress at this time. Patient states tm5 symptoms have not improved. pt states that after all medications she is still having dizziness, states No changes in her dizziness, pt still playing on her laptop computer, no s/s of any distress. Cardiovascular: Rhythm is regular. 04:41 Reassessment: Patient appears in no apparent distress at this time. Patient states tm5 symptoms have improved. pt still playing on her laptop computer, shows no s/s of any distress. 05:00 General: admission Nurse at pt's bedside doing pt's admission assessment . tm5 07:00 Adult Sepsis Screening: The patient does not have new or worsening altered mentation. ead Patient's respiratory rate is less than 22. Systolic blood pressure is greater than 100. Patient has a qSOFA score of 0- Negative Sepsis Screen. General: Appears in no apparent distress, Behavior is appropriate for age, cooperative. Neurological: No deficits noted. Respiratory: Airway is patent Respiratory effort is even, unlabored. Derm: Skin is pink, warm & dry. 08:00 General: Appears in no apparent distress, comfortable, Behavior is appropriate for age, ead cooperative. Neurological: No deficits noted. Respiratory: Airway is patent Respiratory effort is even, unlabored. Derm: Skin is pink, warm & dry. 08:54 General: Appears in no apparent distress, comfortable, Behavior is appropriate for age, ead cooperative, pt given morning medications as ordered for admission. See MAR for administration record. Pt states she no longer takes Zyprexa, medication not given. . Respiratory: Airway is patent Respiratory effort is even, unlabored. Derm: Skin is pink, warm & dry. 10:00 General: Appears in no apparent distress, comfortable. Respiratory: Airway is patent ead Respiratory effort is even, unlabored. GI: Denies nausea, vomiting. Derm: Skin is pink, warm & dry. 11:00 General: Appears in no apparent distress, Behavior is appropriate for age, cooperative. ead General: pt c/o lower back pain, pt offered tylenol as ordered with admission meds. pt declines. pt also declines zofran for nausea. pt updated of bed status for admission. . Pain: Location: back. Neurological: No deficits noted. Respiratory: Airway is patent Respiratory effort is even, unlabored, Respiratory pattern is regular, symmetrical. Derm: Skin is pink, warm & dry. 12:00 General: Appears in no apparent distress, comfortable, Behavior is appropriate for age, ead cooperative. Neurological: No deficits noted. Respiratory: Airway is patent Respiratory effort is even, unlabored. Derm: Skin is pink, warm & dry. 13:00 General: Appears in no apparent distress, comfortable, Behavior is appropriate for age, ead cooperative. Neurological: Level of Consciousness is awake, alert, obeys commands, Oriented to person, place, time. Respiratory: Airway is patent Respiratory effort is even, unlabored. GI: Denies nausea, vomiting. Derm: Skin is pink, warm & dry. 13:48 General: Appears in no apparent distress, Behavior is appropriate for age, cooperative. ead Neurological: No deficits noted. Respiratory: Airway is patent Respiratory effort is even, unlabored. Derm: Skin is pink, warm & dry. Vital Signs: 07/02 18:06 BP 144 / 54 LA Sitting (auto/reg); Pulse 118; Resp 18; Temp 97.8(T); Pulse Ox 98% on bnb R/A; Weight 55.79 kg; Height 5 ft. (152.40 cm); Pain 9/10; 18:28 BP 111 / 54 (auto/); ead 19:00 Pulse 104 MON; Resp 16; Pulse Ox 96% on R/A; ead 21:00 BP 116 / 52 Supine; Pulse 100; tm5 21:00 BP 114 / 54 Sitting; Pulse 102; tm5 21:00 BP 118 / 62 Standing; Pulse 102; tm5 22:42 BP 123 / 56; Pulse 89; Resp 18; Pulse Ox 99% on R/A; Pain 0/10; tm5 13 03:22 BP 116 / 48; Pulse 92; Resp 20; Pulse Ox 98% on R/A; Pain 0/10; tm5 04:41 BP 122 / 58; Pulse 74; Resp 18; Temp 97.8(O); Pulse Ox 99% on R/A; Pain 0/10; tm5 06:19 BP 123 / 58; Pulse 63; Resp 20; Temp 97.6(O); Pulse Ox 98% on R/A; Pain 0/10; tm5 09:36 BP 114 / 57 (auto/); ead 09:36 Pulse 94 MON; Resp 16; Pulse Ox 95% on R/A; ead 10:07 BP 123 / 51 (auto/); ead 10:07 Pulse 88 MON; Pulse Ox 96% ; ead 10:37 BP 100 / 56 (auto/); ead 10:38 Pulse 80 MON; Resp 16; Pulse Ox 96% on R/A; ead 11:07 BP 97 / 53 (auto/); ead 11:08 Pulse 86 MON; Pulse Ox 95% ; ead 12:21 BP 101 / 61; Pulse 74; Resp 16; Temp 98.1; Pulse Ox 96% on R/A; ead 12:37 BP 108 / 54 (auto/); ead 12:38 Pulse 78 MON; Pulse Ox 96% ; ead 13:07 BP 112 / 55 (auto/); ead 13:08 Pulse 100 MON; Resp 16; Pulse Ox 95% on R/A; ead 13:37 BP 106 / 61 (auto/); ead 13:38 Pulse 84 MON; Resp 16; Temp 98.1; Pulse Ox 95% on R/A; ead 07/02 18:06 Body Mass Index 24.02 (55.79 kg, 152.40 cm) bnb Vitals: 07/02 18:06 Log In Time: July 02, 2016 at 18:04. bnb ED Course: 18:05 Patient visited by Raissa Rankin PCA. bnb 18:05 Patient moved to Waiting bnb 18:07 Patient moved to Pre RCE bnb 18:10 Triage Initiated rs3 18:17 Luna Villa RN is Primary Nurse. jjr 18:17 Patient moved to 11 jjr 19:01 Patient visited by Luna Villa RN. ead 19:07 Patient visited by Hayley Silva RN. tm5 19:07 The patient / caregiver is instructed regarding the plan of care and ED course. Patient tm5 has correct armband on for positive identification. Placed in gown. Bed in low position. Call light in reach. Side rails up X 1. Side rails up X2. Seizure precautions initiated. Report received from Luna JAQUEZ, assumed care of pt at this time. 19:08 Awaiting ED physician evaluation. tm5 19:11 Richard Young DO is PHCP. gk1 19:11 Ry Venegas DO is Attending Physician. gk1 19:15 Patient visited by Hayley Silva RN. tm5 19:16 Patient visited by Ry Venegas DO. mm11 19:49 [facility] Payment Agreement was scanned into [employer] and attached to record. zo 19:52 Patient visited by Hayley Silva RN. tm5 20:30 EKG done. (by ED staff). Reviewed by Ry Venegas DO. mdr 20:31 Patient visited by Ramo Saucedo PCA. mdr 20:45 Patient visited by Ry Venegas DO. mm11 20:46 Patient visited by Richard Young DO. gk1 20:58 Patient visited by Richard Young DO. gk1 20:59 Patient visited by Hayley Silva RN. tm5 21:02 Inserted saline lock: 24 gauge in left The patient tolerated the procedure well. left tm5 foot access, pt with very poor IV access. 21:03 Missed attempts: 22 gauge X 3 in right hand, in left hand, in left antecubital area. tm5 21:46 Patient visited by Hayley Silva RN. tm5 21:[address] Patient moved back from CT. tm5 22:41 Patient visited by Hayley Silva RN. tm5 22:46 Primary Nurse role handed off by Luna Villa RN ar3 23:02 CT Head Without Contrast Returned. EDMS 23:02 CT Spine,Cervical W/o Contrast Returned. EDMS 23:02 CT Spine, Lumbar W/o Contrast Returned. EDMS 23:02 CT Spine,Thoracic W/o Contrast Returned. EDMS 23:57 Patient visited by Hayley Silva RN. tm5 02 01:05 Patient visited by Hayley Silva RN. tm5 01:35 Patient visited by Hayley Silva RN. tm5 01:35 Resident to see patient. tm5 02:26 Patient visited by Hayley Silva RN. tm5 03:23 Patient visited by Hayley Silva RN. tm5 04:21 Richard Biswas is Hospitalizing Provider. gk1 05:42 Patient moved to Admit Hold daq 06:13 Patient visited by Hayley Silva RN. tm5 06:13 Awaiting bed assignment. tm5 06:19 Patient visited by Hayley Silva RN. tm5 07:03 Patient visited by Hayley Silva RN. tm5 07:03 Report given to Luna Sotelo RN. tm5 07:11 Luna Villa RN is Primary Nurse. ead 08:34 EKG-ADULT Returned. EDMS 09:38 Patient visited by Luna Villa RN. ead 13:07 Patient visited by Swathi Grey PCA. ar3 13:07 Diet: Patient refused offered diet. patient refused most of the tray. patient only ate ar3 the soup.. 13:48 No procedures done that require assistance. ead 14:32 T-Sheet-- Draft Copy was scanned into [employer] and attached to record. gb 07/04 14:26 ECG/EKG was scanned into [employer] and attached to record. gb 14:26 Radiology Report was scanned into [employer] and attached to record. gb Administered Medications: 07/02 20:59 Drug: LR 1000 ml [lactated ringers intravenous solution] {Note: LR given at 250cc/hr tm5 due to poor IV access & #24 angio to left foot.} Route: IV; Rate: bolus; Site: left foot; 07/03 01:37 Follow up: IV Status: Completed infusion; IV Intake: 1000ml tm5 07/02 20:59 Drug: morphine 4 mg [morphine 4 mg/mL intravenous cartridge (1 mL)] Route: IVP; Site: tm5 left foot; 21:30 Follow up: Response: No Adverse Reaction; Pain is resolved tm5 07/03 00:30 Drug: Valproic Acid 500 mg [valproate sodium 500 mg/5 mL (100 mg/mL) intravenous tm5 solution] {Note: given IVPB in 50cc NS .} Route: IVPB; Infused Over: 15 mins; Site: left foot; 01:00 Follow up: IV Status: Completed infusion; IV Intake: 50ml tm5 00:30 Drug: morphine 4 mg [morphine 4 mg/mL intravenous cartridge (1 mL)] Route: IVP; Site: tm5 left foot; 01:00 Follow up: Response: No Adverse Reaction; Pain is resolved tm5 01:59 Drug: Meclizine 25 mg [meclizine 12.5 mg tablet (2 tabs)] Route: PO; tm5 03:20 Follow up: Response: No Adverse Reaction; No significant change. tm5 Point of Care Testing: Urine : 00:53 hCG Reading: Negative; tm5 Ranges: Intake: 01:00 IV: 50.00ml; Total: 50.00ml. tm5 01:37 IV: 1000.00ml; Total: 1050.00ml. tm5 Order Results: Lab Order: CBC with Diff; SPEC'M 07/02/16 21:03 Test: WHITE BLOOD COUNT; Value: 5.2; Range: 4.0-10.0; Units: K/mm3; Status: F Test: RED BLOOD COUNT; Value: 4.48; Range: 4.00-5.40; Units: M/mm3; Status: F Test: HEMOGLOBIN; Value: 11.5; Range: 12.0-16.0; Abnormal: Below low normal; Units: g/dl; Status: F Test: HEMATOCRIT; Value: 35.5; Range: 36.0-47.0; Abnormal: Below low normal; Units: %; Status: F Test: MEAN CORPUSCULAR VOLUME; Value: 79.2; Range: 80.0-96.0; Abnormal: Below low normal; Units: fl; Status: F Test: MEAN CORPUSCULAR HEMOGLOBIN; Value: 25.6; Range: 27.0-33.0; Abnormal: Below low normal; Units: pg; Status: F Test: MEAN CORPUSCULAR HGB CONC; Value: 32.3; Range: 32.0-36.5; Units: g/dl; Status: F Test: RED CELL DISTRIBUTION WIDTH; Value: 15.9; Range: 11.5-14.5; Abnormal: Above high normal; Units: %; Status: F Test: PLATELET COUNT, AUTOMATED; Value: 296; Range: 150-450; Units: k/mm3; Status: F Test: NEUTROPHILS %; Value: 67.4; Range: 36.0-66.0; Abnormal: Above high normal; Units: %; Status: F Test: LYMPH %; Value: 23.6; Range: 24.0-44.0; Abnormal: Below low normal; Units: %; Status: F Test: MONO %; Value: 5.9; Range: 0.0-5.0; Abnormal: Above high normal; Units: %; Status: F Test: EOS %; Value: 0.9; Range: 0.0-3.0; Units: %; Status: F Test: BASO %; Value: 0.3; Range: 0.0-1.0; Units: %; Status: F Test: LARGE UNSTAINED CELL %; Value: 1.9; Range: 0.0-4.0; Units: %; Status: F Test: NEUTROPHILS #; Value: 3.5; Range: 1.8-7.7; Units: K/mm3; Status: F Test: LYMPH #; Value: 1.3; Range: 1.5-4.5; Abnormal: Below low normal; Units: K/mm3; Status: F Test: MONO #; Value: 0.3; Range: 0.0-0.8; Units: K/mm3; Status: F Test: EOS #; Value: 0.0; Range: 0.0-0.50; Units: K/mm3; Status: F Test: BASO #; Value: 0.0; Range: 0.0-0.2; Units: K/mm3; Status: F Test: LARGE UNSTAINED CELL #; Value: 0.1; Range: 0.0-0.4; Units: K/mm3; Status: F Lab Order: Complete Comphrensive Metabolic; SPEC'M 07/02/16 21:03 Test: GLUCOSE, FASTING; Value: 86; Range: 70-105; Units: MG/DL; Status: F Test: BLOOD UREA NITROGEN; Value: 13; Range: 7-18; Units: MG/DL; Status: F Test: CREATININE FOR GFR; Value: 1.19; Range: 0.55-1.02; Abnormal: Above high normal; Units: MG/DL; Status: F Test: GLOMERULAR FILTRATION RATE; Value: 53.8; Range: >60; Abnormal: Below low normal; Status: F Test: SODIUM LEVEL; Value: 140; Range: 136-145; Units: MEQ/L; Status: F Test: POTASSIUM SERUM; Value: 4.5; Range: 3.5-5.1; Units: MEQ/L; Status: F Test: CHLORIDE LEVEL; Value: 105; Range: 98-107; Units: MEQ/L; Status: F Test: CARBON DIOXIDE LEVEL; Value: 22; Range: 21-32; Units: MEQ/L; Status: F Test: ANION GAP; Value: 13; Range: 8-16; Units: MEQ/L; Status: F Test: CALCIUM LEVEL; Value: 9.3; Range: 8.5-10.1; Units: MG/DL; Status: F Test: AST/SGOT; Value: 13; Range: 15-37; Abnormal: Below low normal; Units: U/L; Status: F Test: ALT/SGPT; Value: 12; Range: 12-78; Units: U/L; Status: F Test: ALKALINE PHOSPHATASE; Value: 61; Range: 45-117; Units: U/L; Status: F Test: BILIRUBIN,TOTAL; Value: 0.2; Range: 0.2-1.0; Units: MG/DL; Status: F Test: TOTAL PROTEIN; Value: 7.6; Range: 6.4-8.2; Units: GM/DL; Status: F Test: ALBUMIN; Value: 3.9; Range: 3.2-5.2; Units: GM/DL; Status: F Test: ALBUMIN/GLOBULIN RATIO; Value: 1.05; Range: 1.00-1.93; Status: F Test Note: ; Units are mL/min/1.73 m2 Chronic Kidney Disease Staging per NKF: Stage I & II GFR >=60 Normal to Mildly Decreased Stage III GFR 30-59 Moderately Decreased Stage IV GFR 15-29 Severely Decreased Stage V GFR <15 Very Little GFR Left ESRD GFR <15 on MANAGER WELDING Lab Order: Magnesium Level; [facility]07/02/16 21:03 Test: MAGNESIUM LEVEL; Value: 1.9; Range: 1.8-2.4; Units: MG/DL; Status: F Lab Order: Phosphorous Level; [facility] 07/02/16 21:03 Test: PHOSPHORUS LEVEL; Value: 2.9; Range: 2.5-4.9; Units: MG/DL; Status: F Lab Order: Cardiac Injury Profile; [facility] 07/02/16 21:03 Test: CPK CREATINE PHOSPHOKINASE; Value: 41; Range: 26-192; Units: U/L; Status: F Test: CK-MB VALUE MASS; Value: 1.1; Range: 0.0-3.6; Units: NG/ML; Status: F Test: MB/CK RELATIVE INDEX; Value: 2.68; Range: < OR =4; Status: F Test Note: ; DIAGNOSIS CRITERIA MMB ng/ml Relative Index (RI) NON-AMI < or = 5 N/A CHUA ZONE > 5 < or = 4 AMI > 5 > 4 Lab Order: DEPAKOTE; [facility] 07/02/16 21:03 Test: VALPROIC ACID (DEPAKOTE); Value: 32.7; Range: 50.0-100.0; Abnormal: Below low normal; Units: UG/ML; Status: F Lab Order: TSH with Free T4; [facility] 07/02/16 21:03 Test: THYROID STIMULATING HORMONE; Value: 0.447; Range: 0.358-3.740; Units: uIU/ML; Status: F Test: FREE T4; Value: 1.63; Range: 0.76-1.46; Abnormal: Above high normal; Units: NG/DL; Status: F Lab Order: TROPONIN; [facility] 07/02/16 21:03 Test: TROPONIN I; Value: < 0.02; Range: < 0.10; Units: NG/ML; Status: F Test Note: ; Troponin I Reference Interval for [employer] LOCI: 99th Percentile= 0.00-0.045 ng/ml Risk Stratification: <= 0.10 ng/ml Decreased Risk for Adverse Clinical Events. 0.10-1.50 ng/ml Increased Risk for Adverse Clinical Events. Evaluation of additional criterion and/or repeat testing in 2-6 hours is suggested to rule out myocardial damage. >= 1.50 ng/ml Indicative of Myocardial Injury. Lab Order: Urinalysis; [facility] 07/03/16 00:49 Test: APPEARANCE, URINE; Value: CLOUDY; Range: CLEAR; Abnormal: Above high normal; Status: F Test: COLOR, URINE; Value: YELLOW; Range: YELLOW; Status: F Test: PH,URINE; Value: 5.0; Range: 5.0-9.0; Units: UNITS; Status: F Test: SPECIFIC GRAVITY URINE AUTO; Value: 1.020; Range: 1.002-1.035; Status: F Test: PROTEIN, URINE AUTO; Value: 1+; Range: NEGATIVE; Abnormal: Above high normal; Units: mg/dL; Status: F Test: GLUCOSE, URINE (UA) AUTO; Value: NEGATIVE; Range: NEGATIVE; Units: mg/dL; Status: F Test: KETONE, URINE AUTO; Value: 1+; Range: NEGATIVE; Abnormal: Above high normal; Units: mg/dL; Status: F Test: UROBILINOGEN, URINE AUTO; Value: 0.2; Range: 0.0-2.0; Units: mg/dL; Status: F Test: BILIRUBIN, URINE AUTO; Value: NEGATIVE; Range: NEGATIVE; Status: F Test: NITRITE, URINE AUTO; Value: NEGATIVE; Range: NEGATIVE; Status: F Test: LEUKOCYTE ESTERASE, URINE AUTO; Value: NEGATIVE; Range: NEGATIVE; Status: F Test: BLOOD, URINE BLOOD; Value: NEGATIVE; Range: NEGATIVE; Status: F Test: WBC, URINE AUTO; Value: 0; Range: 0-3; Units: /HPF; Status: F Test: RBC, URINE AUTO; Value: 4; Range: 0-3; Abnormal: Above high normal; Units: /HPF; Status: F Test: BACTERIA, URINE AUTO; Value: 2+; Range: NEGATIVE; Abnormal: Above high normal; Status: F Test: SQUAMOUS EPITHELIAL CELL UR AU; Value: 14; Range: 0-6; Units: /HPF; Status: F Test: TRANSITIONAL EPITHELIAL AUTO; Value: <1; Range: NONE; Units: /HPF; Status: F Test: MUCUS, URINE; Value: SMALL; Range: NEGATIVE; Status: F Test: HYALINE CAST, URINE AUTO; Value: 9; Range: 0-1; Units: /LPF; Status: F Lab Order: BASIC METABOLIC PROFILE; [facility] 07/03/16 06:40 Test: GLUCOSE, FASTING; Value: 100; Range: 70-105; Units: MG/DL; Status: F Test: BLOOD UREA NITROGEN; Value: 12; Range: 7-18; Units: MG/DL; Status: F Test: CREATININE FOR GFR; Value: 1.23; Range: 0.55-1.02; Abnormal: Above high normal; Units: MG/DL; Status: F Test: GLOMERULAR FILTRATION RATE; Value: 51.7; Range: >60; Abnormal: Below low normal; Status: F Test: SODIUM LEVEL; Value: 139; Range: 136-145; Units: MEQ/L; Status: F Test: POTASSIUM SERUM; Value: 4.0; Range: 3.5-5.1; Units: MEQ/L; Status: F Test: CHLORIDE LEVEL; Value: 105; Range: 98-107; Units: MEQ/L; Status: F Test: CARBON DIOXIDE LEVEL; Value: 24; Range: 21-32; Units: MEQ/L; Status: F Test: ANION GAP; Value: 10; Range: 8-16; Units: MEQ/L; Status: F Test: CALCIUM LEVEL; Value: 8.6; Range: 8.5-10.1; Units: MG/DL; Status: F Test Note: ; Units are mL/min/1.73 m2 Chronic Kidney Disease Staging per NKF: Stage I & II GFR >=60 Normal to Mildly Decreased Stage III GFR 30-59 Moderately Decreased Stage IV GFR 15-29 Severely Decreased Stage V GFR <15 Very Little GFR Left ESRD GFR <15 on MANAGER WELDING Lab Order: MAGNESIUM LEVEL; SPEC'M 07/03/16 06:40 Test: MAGNESIUM LEVEL; Value: 1.5; Range: 1.8-2.4; Abnormal: Below low normal; Units: MG/DL; Status: F Lab Order: COMPLETE BLOOD COUNT; SPEC 07/03/16 06:40 Test: WHITE BLOOD COUNT; Value: 4.6; Range: 4.0-10.0; Units: K/mm3; Status: F Test: RED BLOOD COUNT; Value: 4.11; Range: 4.00-5.40; Units: M/mm3; Status: F Test: HEMOGLOBIN; Value: 10.6; Range: 12.0-16.0; Abnormal: Below low normal; Units: g/dl; Status: F Test: HEMATOCRIT; Value: 32.9; Range: 36.0-47.0; Abnormal: Below low normal; Units: %; Status: F Test: MEAN CORPUSCULAR VOLUME; Value: 80.0; Range: 80.0-96.0; Units: fl; Status: F Test: MEAN CORPUSCULAR HEMOGLOBIN; Value: 25.7; Range: 27.0-33.0; Abnormal: Below low normal; Units: pg; Status: F Test: MEAN CORPUSCULAR HGB CONC; Value: 32.1; Range: 32.0-36.5; Units: g/dl; Status: F Test: RED CELL DISTRIBUTION WIDTH; Value: 15.9; Range: 11.5-14.5; Abnormal: Above high normal; Units: %; Status: F Test: PLATELET COUNT, AUTOMATED; Value: 278; Range: 150-450; Units: k/mm3; Status: F Radiology Order: EKG-ADULT Test: EKG-ADULT REASON FOR EXAMINATION: Syncope; Stationary ECG Study; [facility] - ED; ; Test Date: 2016-07-02; Pat Name: DEMI PATTERSON Department:; Room: [place] [address]; Gender: F Engineering Research Manager: donavon : 1975 Requested By: RICHARD KISER-1; Order Number: [id number] Reading MD: Cady Nevarez; Measurements; Intervals [place]; Rate: 113 P: 38; W[place]: 121 QRS: 49; QRSD: 73 T: -21; QT: 328; QTc: 450; Interpretive Statements; SINUS TACHYCARDIA; NONSPECIFIC ST T-WAVE ABNORMALITY; SIMILAR 06/09/16; Electronically Signed On 07-03-2016 8:30:25 EST by Cady Nevarez; Radiology Order: CT Head Without Contrast Test: CT Head Without Contrast REASON FOR EXAMINATION: Syncope; ; CLINICAL HISTORY: SEIZURE, SYNCOPE; TECHNIQUE: Multiple axial brain CT scan sections were obtained from base to vertex without contrast a; dministration.; COMMENTS:; The study shows normal configuration of sella turcica. There are no intra or extra-axial collections.; There is no mass effect or midline shift. There is no evidence of hematoma formation. No hydrocephal; us is present. No abnormal calcifications are noted.; No significant abnormalities are seen either in the posterior fossa or supratentorial compartment.; The sinuses and mastoid air cells are patent.; IMPRESSION:; No evidence of acute intracranial pathology.; Thank you for your kind referral of this patient.; ; Radiology Order: CT Spine, Lumbar W/o Contrast Test: CT Spine, Lumbar W/o Contrast REASON FOR EXAMINATION: Syncope; ; CLINICAL HISTORY: SEIZURE, SYNCOPE; TECHNIQUE: Multiple axial images were obtained through the L1-L2, L2-L3, L3-L4, L4-L5 and L5-S1 inter; spaces. Images were also reconstructed in coronal and sagittal planes.; COMMENTS:; There is no fracture visualized. The paraspinal soft tissues are unremarkable. There are no lytic or; blastic lesions.; Straightening of lumbar lordosis is seen, suggesting muscular spasm. There is evidence of mild multil; evel disk disease, demonstrated by facet arthropathy, early osteophytosis and endplate sclerosis.; IMPRESSION:; 1. No fracture or spondylolisthesis.; 2. Straightening of lumbar lordosis is seen, suggesting muscular spasm.; 3. Mild low degenerative spondylosis.; Thank you for your kind referral of this patient.; ; Radiology Order: CT Spine,Thoracic W/o Contrast Test: CT Spine,Thoracic W/o Contrast REASON FOR EXAMINATION: Syncope; ; CLINICAL HISTORY: SEIZURE, SYNCOPE; TECHNIQUE: Multiple axial CT images were obtained through the thoracic spine without IV contrast mate; rial. MPR coronal and sagittal sequences were obtained.; COMMENTS: Compared to 06/09/16 study.; There is mild stable chronic anterior wedging compression fracture deformity noted involving T11 vert; ebral body. In addition there are stable Schmorl's nodes involving the superior endplates of T6 and; T10 vertebral body.; Mild multilevel degenerative spondylosis is seen. This is most severe at T10-T11 levels.; There is no acute fracture visualized. The paraspinal soft tissues are unremarkable. There are no lyt; ic or blastic lesions.; The paravertebral soft tissue space is normal.; IMPRESSION:; No acute pathology. No interval change.; Mild stable chronic anterior wedging compression fracture deformity noted involving T11 vertebral bod; y.; In addition there are stable Schmorl's nodes involving the superior endplates of T6 and T10 vertebral; body.; Thank you for your kind referral of this patient.; ; Radiology Order: CT Spine,Cervical W/o Contrast Test: CT Spine,Cervical W/o Contrast REASON FOR EXAMINATION: Syncope; ; CLINICAL HISTORY: SEIZURE, SYNCOPE; TECHNIQUE: Multiple axial images were obtained through the cervical spine. Images were also reconstru; cted in coronal and sagittal planes. The study was performed without IV contrast.; COMMENTS:; There is no fracture or spondylolisthesis visualized. The paraspinal soft tissues are unremarkable. T; here are no lytic or blastic lesions.; Straightening of cervical lordosis is seen, suggesting muscular spasm. There is evidence of m service; ild multilevel disk disease, demonstrated by minimal osteophytosis and endplate sclerosis.; IMPRESSION:; 1. No fracture or spondylolisthesis.; 2. Straightening of cervical lordosis is seen, suggesting muscular spasm.; 3. Mild multilevel spondylosis.; Thank you for your kind referral of this patient.; ; Outcome: 04:22 Decision to Hospitalize by Provider. [email or web address] 13:47 Discharge Assessment: Patient awake and alert. obeys commands, Oriented to person, ead place and time. patient administered narcotics - yes. Patient was admitted to the hospital or transferred to another facility. The following High Risk Discharge criteria are identified: None. Admitted to PCU accompanied by nurse, accompanied by tech, via stretcher, on monitor, with chart. Condition: stable. CT Study completed. Property sent home with patient. 13:49 Patient left the ED. ead Signatures: Dispatcher [employer] EDMS Marjan Skinner RN RN daq Radha Bernardo, Reg Reg Montrell Teixeira Matthew, DO DO mm11 Lyn Greer, RN RN Serene Ahn,RN RN rs3 Swathi Grey, PEWTER FABRICATOR PEWTER FABRICATOR ar3 Luna Villa,RN Ramo Tomas, PEWTER FABRICATOR PEWTER FABRICATOR Richard Caruso, DO DO gk1 Hayley Silva RN RN tm5 Raissa Rankin, PEWTER FABRICATOR PEWTER FABRICATOR bnb Chart Complete MTDD
== END 2016-07-04 17:28 | disposition home or self-care (01) ==
LOC: M ED 18:04 → M ED INP 07-03 04:00 → M PCU 07-03 13:52
PROVIDERS: ADMIT Internal Medicine; ATTEND Internal Medicine
DX: G40.901 Epilepsy, unspecified, not intractable, with status epilepticus (principal); E86.0 Dehydration; N17.9 Acute kidney failure, unspecified; I10 Essential (primary) hypertension; M08.00 Unspecified juvenile rheumatoid arthritis of unspecified site; E27.40 Unspecified adrenocortical insufficiency; E03.9 Hypothyroidism, unspecified; K21.9 Gastro-esophageal reflux disease without esophagitis; D64.9 Anemia, unspecified; M79.7 Fibromyalgia; M32.10 Systemic lupus erythematosus, organ or system involvement unspecified; Z79.899 Other long term (current) drug therapy; Z88.8 Allergy status to other drugs, medicaments and biological substances

== ENCOUNTER 2016-08-13 17:47 | Emergency (ER) | payer OTHER ==
[~2016-08-13] VITALS: Ht 152.4 cm; Wt 54.0 kg
[~2016-08-13 17:47] MED LIST changes: +DEPA250T2 PO; +HYDR25T PO; +ROZE8TAB9 PO; +TIGA300C2 PO
[2016-08-13] MEDS ORDERED: PERCOCET 5MG/325MG TAB PO ONE (18:45)
--- NOTE | 2016-08-13 19:14 | REP ---
Clinical: Trauma. Fall. Technique: Axial contrast enhanced images from mid T9 through mid sacrum with coronal and sagittal re-formations. Comparison: Multiple examinations dating through 06/09/2016. Findings: There is a mild nonacute compression fracture at T11 with approximately 25% loss of the anterior superior humeral body height which is essentially unchanged compared to prior examinations including thoracic spine x-rays dated 03/24/2016. The remainder of the examination demonstrates a normal vertebral body contours without acute fracture / compression injury or subluxation. Spinal canal is patent. Posterior elements and spinous processes are intact. Chronic hypertrophic facet changes primarily involving the L4-5 and L5-S1 levels noted. Paravertebral soft tissues appear normal. Impression: 1. Mild chronic version deformity at T11 unchanged when compared to x-ray dated 03/24/2016. 2. No acute lumbosacral spine trauma/injury or pathology. Signed by Peter Duarte MD 08/13/2016 07:07 P
--- NOTE | 2016-08-13 19:18 | REP ---
Clinical: Trauma. Fall. Comparison: 06/09/2016. Technique: Axial images from C7 through T12 with coronal and sagittal re-formations. Findings: Alignment and kyphosis maintained. Old compression fracture involving T11 and associated anterior osteophytosis at the T10-11 junction is appreciated. There is no evidence for acute fracture / compression injury or subluxation. Spinal canal is patent. Posterior elements and spinous processes are intact. Paravertebral soft tissues are normal. Impression: 1. Old mild compression deformity at T11. 2. Otherwise normal alignment and kyphosis and no evidence for acute trauma/injury or pathology. Signed by Peter Duarte MD 08/13/2016 07:10 P
[2016-08-13 19:46] LABS: MEAN CORPUSCULAR HEMOGLOBIN 25.3 pg (27.0-33.0); MEAN CORPUSCULAR VOLUME 81.8 fl (80.0-96.0); RED CELL DISTRIBUTION WIDTH 15.9 % (11.5-14.5); WHITE BLOOD COUNT 9.9 K/mm3 (4.0-10.0)
[2016-08-13 20:16] LABS: ANION GAP 9 MEQ/L (8-16); BLOOD UREA NITROGEN 6 MG/DL (7-18); CALCIUM LEVEL 8.6 MG/DL (8.5-10.1); CARBON DIOXIDE LEVEL 23 MEQ/L (21-32); CHLORIDE LEVEL 108 MEQ/L (98-107); CREATININE FOR GFR 0.84 MG/DL (0.55-1.02); GLOMERULAR FILTRATION RATE > 60.0 (>58); GLUCOSE, FASTING 101 MG/DL (70-105); SODIUM LEVEL 140 MEQ/L (136-145)
[2016-08-13 20:56] VITALS: BP 139/90
== END 2016-08-13 21:00 | disposition home or self-care (01) ==
LOC: M ED 18:42
DX: M54.9 Dorsalgia, unspecified (principal); N28.9 Disorder of kidney and ureter, unspecified; F17.200 Nicotine dependence, unspecified, uncomplicated; Z79.51 Long term (current) use of inhaled steroids; Z79.899 Other long term (current) drug therapy; Z79.52 Long term (current) use of systemic steroids; Z88.8 Allergy status to other drugs, medicaments and biological substances; Z88.1 Allergy status to other antibiotic agents; Z88.5 Allergy status to narcotic agent

== ENCOUNTER 2016-09-05 12:33 | Emergency (ER) | payer OTHER ==
[~2016-09-05] VITALS: Ht 152.4 cm; Wt 54.4 kg
[2016-09-05] MEDS ORDERED: ONDANSETRON 4 MG ORAL DISINTEGRATING TAB (S0181) PO ONE ×2 (13:45→15:30)
[2016-09-05] MEDS ORDERED: MORPHINE 10 MG/ML 1ML VIAL IM ONE (13:45)
[2016-09-05] MEDS ORDERED: FLUCONAZOLE 100 MG TAB PO ONE (13:45)
[2016-09-05 14:18] LABS: CONTROL LINE UCG INT CTR LINE PRESENT
[2016-09-05 14:42] LABS: BASO % 0.1 % (0.0-1.0); EOS % 0.8 % (0.0-3.0); LARGE UNSTAINED CELL # 0.1 K/mm3 (0.0-0.4); LARGE UNSTAINED CELL % 1.1 % (0.0-4.0); LYMPH # 0.8 K/mm3 (1.5-4.5); LYMPH % 11.2 % (24.0-44.0); MEAN CORPUSCULAR HEMOGLOBIN 24.7 pg (27.0-33.0); MEAN CORPUSCULAR VOLUME 79.7 fl (80.0-96.0); MONO # 0.4 K/mm3 (0.0-0.8); NEUTROPHILS # 5.5 K/mm3 (1.8-7.7); NEUTROPHILS % 80.9 % (36.0-66.0); PLATELET COUNT, AUTOMATED 303 k/mm3 (150-450); RED CELL DISTRIBUTION WIDTH 15.9 % (11.5-14.5); WHITE BLOOD COUNT 6.7 K/mm3 (4.0-10.0)
--- NOTE | 2016-09-05 15:00 | REP ---
CT abdomen pelvis without IV and oral contrast: Comparison 11/06/2015. The visualized lung denis are unremarkable. The unenhanced hepatic parenchyma, gallbladder, pancreas and spleen are normal size unremarkable. The adrenals are unremarkable. There is no hydronephrosis. There are no renal or ureteral calculi. The kidneys are unremarkable. There are no bladder calculi. The aorta, bowel and mesentery are unremarkable. Pelvis: The appendix has a normal appearance. Uterus and adnexa are unremarkable. There are a few phleboliths are incidentally noted. There is no ascites or adenopathy. The pelvic bowel loops are unremarkable. There are grade 1 compression deformities of the T10-T11 vertebral bodies, unchanged from the comparison study. Impression: There are no renal, ureteral or bladder calculi. There is no hydronephrosis. There are chronic stable grade 1 compression deformities of the T10-T11 vertebral bodies, unchanged from the prior study. Otherwise, essentially negative CT of the abdomen and pelvis. Signed by Bebo Baer MD 09/05/2016 02:52 P
[2016-09-05 15:05] LABS: ALBUMIN 3.5 GM/DL (3.2-5.2); ALBUMIN/GLOBULIN RATIO 0.92 (1.00-1.93); ALKALINE PHOSPHATASE 62 U/L (45-117); ALT/SGPT 14 U/L (12-78); ANION GAP 6 MEQ/L (8-16); AST/SGOT 16 U/L (15-37); BILIRUBIN,DIRECT < 0.1 MG/DL (0.0-0.2); BILIRUBIN,TOTAL 0.3 MG/DL (0.2-1.0); BLOOD UREA NITROGEN 8 MG/DL (7-18); CALCIUM LEVEL 8.6 MG/DL (8.5-10.1); CARBON DIOXIDE LEVEL 27 MEQ/L (21-32); CHLORIDE LEVEL 109 MEQ/L (98-107); CREATININE FOR GFR 0.74 MG/DL (0.55-1.02); GLOMERULAR FILTRATION RATE > 60.0 (>58); GLUCOSE, FASTING 96 MG/DL (70-105); POTASSIUM SERUM 4.1 MEQ/L (3.5-5.1); SODIUM LEVEL 142 MEQ/L (136-145); TOTAL PROTEIN 7.3 GM/DL (6.4-8.2)
--- NOTE | 2016-09-05 16:55 | REP ---
Right upper quadrant sonography: History: Elevated lipase. Findings: Scan quality was inhibited some degree by a limited scan windows and patient body habitus. Scanning demonstrates a normal sized thin-walled gallbladder without evidence of stone or polyp. Common bile duct is normal measuring 0.4 cm in greatest diameter. No focal hepatic lesion is seen. Pancreas is largely obscured by abdominal gas. There is no evidence of ascites or right renal abnormality. The right kidney measures 8.7 x 4.0 x 4.3 cm. Impression: Somewhat limited scan quality. No abnormality seen. Signed by Giovanny Antunez MD 09/05/2016 05:09 P
[2016-09-05] MEDS ORDERED: ZOFR4TAB3 PO (17:07)
[2016-09-05 17:19] VITALS: BP 167/75
[2016-09-06] MEDS ORDERED: AMBI10TA PO (11:48)
[2016-09-06] MEDS ORDERED: NORC1TAB4 PO (12:27)
[2016-09-06] MEDS ORDERED: PROM25TA GT (12:27)
== END 2016-09-05 17:21 | disposition home or self-care (01) ==
LOC: M ED 13:41
DX: R74.8 Abnormal levels of other serum enzymes (principal); F41.9 Anxiety disorder, unspecified; G43.909 Migraine, unspecified, not intractable, without status migrainosus; R56.9 Unspecified convulsions; J45.909 Unspecified asthma, uncomplicated; I10 Essential (primary) hypertension; K58.9 Irritable bowel syndrome, unspecified; M79.7 Fibromyalgia; M32.9 Systemic lupus erythematosus, unspecified; E27.9 Disorder of adrenal gland, unspecified; N17.9 Acute kidney failure, unspecified; Z96.0 Presence of urogenital implants; Z87.440 Personal history of urinary (tract) infections; Z79.899 Other long term (current) drug therapy; Z88.1 Allergy status to other antibiotic agents; Z88.8 Allergy status to other drugs, medicaments and biological substances; Z88.5 Allergy status to narcotic agent; Z88.6 Allergy status to analgesic agent

== ENCOUNTER 2016-09-06 11:37 | Emergency (ER) | payer OTHER ==
[~2016-09-06] VITALS: Ht 152.4 cm; Wt 54.4 kg
[~2016-09-06 11:37] MED LIST changes: +ZOFR4TAB3 PO
[2016-09-06] MEDS ORDERED: AMBI10TA PO (11:48)
[2016-09-06] MEDS ORDERED: PROM25TA GT (12:27)
[2016-09-06] MEDS ORDERED: NORC1TAB4 PO (12:27)
[2016-09-06] MEDS ORDERED: PROMETHAZINE INJ 25 MG/ML VIAL (J2550) IM ONE (12:30)
[2016-09-06] MEDS ORDERED: MORPHINE 10 MG/ML 1ML VIAL IM ONE (12:30)
[2016-09-06 13:01] VITALS: BP 146/89
--- NOTE | 2016-09-07 08:36 | ECGEPIP ---
Stationary ECG Study [facility] - ED Test Date: 2016-09-06 Pat Name: CARISSA PATTERSON Department: Room: - Gender: F Urology Nurse: marion : 1975 Requested By: DEMETRIA Simons PA-C Order Number: [id number] Reading MD: Cady Nevarez Measurements Intervals [place] Rate: 101 P: 53 AR: 129 QRS: 57 QRSD: 77 T: -14 QT: 328 QTc: 427 Interpretive Statements SINUS TACHYCARDIA NONSPECIFIC ST & T-WAVE ABNORMALITY DECREASED RATE 07/02/16 Electronically Signed On 09-07-2016 8:36:42 EDT by Cady Nevarez
== END 2016-09-06 13:04 | disposition home or self-care (01) ==
LOC: M ED 12:05
DX: R10.9 Unspecified abdominal pain (principal); F32.9 Major depressive disorder, single episode, unspecified; K58.9 Irritable bowel syndrome, unspecified; G62.9 Polyneuropathy, unspecified; E27.40 Unspecified adrenocortical insufficiency; Z79.899 Other long term (current) drug therapy; Z88.6 Allergy status to analgesic agent; Z88.8 Allergy status to other drugs, medicaments and biological substances; Z88.5 Allergy status to narcotic agent

== ENCOUNTER 2016-09-14 12:35 | Emergency (ER) | payer OTHER ==
[~2016-09-14] VITALS: Ht 152.4 cm; Wt 59.0 kg
[~2016-09-14 12:35] MED LIST changes: +PROM25TA GT
[2016-09-14] MEDS: MORPHINE 2 MG/ML 1ML SYRINGE IV ONE (15:47)
[2016-09-14] MEDS: NS 1,000 ML IV ONE (15:48)
[2016-09-14] MEDS: ONDANSETRON 4MG/2ML VIAL (J2405) IV ONE (15:48)
[2016-09-14] MEDS: PREGABALIN 75 MG CAP(LYRICA) PO ONE (16:01)
[2016-09-14 16:09] LABS: ANION GAP 9 MEQ/L (8-16); BLOOD UREA NITROGEN 8 MG/DL (7-18); CALCIUM LEVEL 8.5 MG/DL (8.5-10.1); CARBON DIOXIDE LEVEL 23 MEQ/L (21-32); CHLORIDE LEVEL 106 MEQ/L (98-107); CREATININE FOR GFR 0.79 MG/DL (0.55-1.02); GLOMERULAR FILTRATION RATE > 60.0 (>58); GLUCOSE, FASTING 86 MG/DL (70-105); POTASSIUM SERUM 4.2 MEQ/L (3.5-5.1); SODIUM LEVEL 138 MEQ/L (136-145)
[2016-09-14 16:45] LABS: BASO % 0.1 % (0.0-1.0); EOS % 0.3 % (0.0-3.0); LARGE UNSTAINED CELL # 0.1 K/mm3 (0.0-0.4); LYMPH # 1.6 K/mm3 (1.5-4.5); LYMPH % 16.3 % (24.0-44.0); MEAN CORPUSCULAR HEMOGLOBIN 25.6 pg (27.0-33.0); MEAN CORPUSCULAR HGB CONC 32.7 g/dl (32.0-36.5); MEAN CORPUSCULAR VOLUME 78.1 fl (80.0-96.0); MONO # 0.4 K/mm3 (0.0-0.8); MONO % 4.2 % (0.0-5.0); NEUTROPHILS # 7.5 K/mm3 (1.8-7.7); NEUTROPHILS % 78.2 % (36.0-66.0); PLATELET COUNT, AUTOMATED 416 k/mm3 (150-450); RED CELL DISTRIBUTION WIDTH 16.1 % (11.5-14.5); WHITE BLOOD COUNT 9.6 K/mm3 (4.0-10.0)
[2016-09-14] MEDS ORDERED: DEPA250T32 PO (17:20)
[2016-09-14 17:28] VITALS: BP 138/69
[2016-09-14] MEDS: NORCO, ANEXSIA 5/325MG TABLET (HYDROcodone/ACETAMINOPHEN) PO ONE (17:34)
== END 2016-09-14 17:37 | disposition home or self-care (01) ==
LOC: M ED 13:34
DX: R56.9 Unspecified convulsions (principal); M54.5 Low back pain; R11.2 Nausea with vomiting, unspecified; N28.9 Disorder of kidney and ureter, unspecified; M32.9 Systemic lupus erythematosus, unspecified; M79.7 Fibromyalgia; Z86.69 Personal history of other diseases of the nervous system and sense organs; Z79.899 Other long term (current) drug therapy; Z79.51 Long term (current) use of inhaled steroids; Z88.8 Allergy status to other drugs, medicaments and biological substances; Z88.1 Allergy status to other antibiotic agents

== ENCOUNTER 2017-05-19 17:56 | Emergency (ER) | payer OTHER ==
[2017-05-19] MEDS: ONDANSETRON 4MG/2ML VIAL (J2405) IV (20:22)
[2017-05-19] MEDS: NS 1,000 ML IV (20:22)
[2017-05-19] MEDS: MORPHINE 2 MG/ML 1ML SYRINGE IV (20:23)
[2017-05-19 20:41] LABS: BASO % 0.4 % (0.0-1.0); EOS % 0.2 % (0.0-3.0); IMMATURE GRANULOCYTE % 0.5 % (0-0); LYMPH % 12.1 % (24.0-44.0); MEAN CORPUSCULAR HGB CONC 33.9 g/dl (32.0-36.5); MEAN CORPUSCULAR VOLUME 85.7 fl (80.0-96.0); MONO # 0.6 10^3/uL (0.0-0.8); NEUTROPHILS # 6.3 10^3/uL (1.8-7.7); NEUTROPHILS % 78.8 % (36.0-66.0); PLATELET COUNT, AUTOMATED 341 10^3/uL (150-450); RED CELL DISTRIBUTION WIDTH 15.5 % (11.5-14.5)
[2017-05-19 20:56] LABS: KETONE, URINE AUTO RFX 1+ mg/dL (NEGATIVE); LEUKOCYTE ESTERASE UR AUTO RFX NEGATIVE (NEGATIVE); MUCUS, URINE RFX SMALL (NEGATIVE); NITRITE, URINE AUTO RFX NEGATIVE (NEGATIVE); RBC, URINE AUTO RFX 1 /HPF (0-3); SPECIFIC GRAVITY UR AUTO RFX 1.021 (1.002-1.035); SQUAM EPITHELIAL CELL UR AURFX 9 /HPF (0-6); WBC, URINE AUTO RFX 1 /HPF (0-3)
[2017-05-19 21:19] LABS: ALBUMIN 3.7 GM/DL (3.2-5.2); ALBUMIN/GLOBULIN RATIO 0.86 (1.00-1.93); ALKALINE PHOSPHATASE 55 U/L (45-117); ALT/SGPT 11 U/L (12-78); ANION GAP 13 MEQ/L (8-16); AST/SGOT 21 U/L (7-37); BILIRUBIN,DIRECT < 0.1 MG/DL (0.0-0.2); BILIRUBIN,TOTAL 0.5 MG/DL (0.2-1.0); BLOOD UREA NITROGEN 14 MG/DL (7-18); CALCIUM LEVEL 8.7 MG/DL (8.5-10.1); CARBON DIOXIDE LEVEL 23 MEQ/L (21-32); CHLORIDE LEVEL 108 MEQ/L (98-107); CREATININE FOR GFR 0.86 MG/DL (0.55-1.02); GLOMERULAR FILTRATION RATE > 60.0 (>58); GLUCOSE, FASTING 96 MG/DL (70-105); POTASSIUM SERUM 3.5 MEQ/L (3.5-5.1); SODIUM LEVEL 144 MEQ/L (136-145)
[2017-05-19] MEDS ORDERED: ISOVUE-370 76% 100ML VIAL (Q9967) As Ordered (21:23)
== END 2017-05-19 22:20 | disposition home or self-care (01) ==
LOC: M ED 17:56
DX: K29.00 Acute gastritis without bleeding (principal); K58.9 Irritable bowel syndrome, unspecified; I10 Essential (primary) hypertension; M79.7 Fibromyalgia; M32.9 Systemic lupus erythematosus, unspecified; J45.909 Unspecified asthma, uncomplicated; M54.9 Dorsalgia, unspecified; M81.0 Age-related osteoporosis without current pathological fracture; E55.9 Vitamin D deficiency, unspecified; E53.8 Deficiency of other specified B group vitamins; E27.40 Unspecified adrenocortical insufficiency; G43.909 Migraine, unspecified, not intractable, without status migrainosus; Z87.442 Personal history of urinary calculi; F41.9 Anxiety disorder, unspecified; G40.909 Epilepsy, unspecified, not intractable, without status epilepticus; F32.9 Major depressive disorder, single episode, unspecified; G62.9 Polyneuropathy, unspecified; Z87.891 Personal history of nicotine dependence; Z79.899 Other long term (current) drug therapy; Z79.51 Long term (current) use of inhaled steroids; Z88.8 Allergy status to other drugs, medicaments and biological substances; Z88.5 Allergy status to narcotic agent; Z88.1 Allergy status to other antibiotic agents
CPT/HCPCS: J2405

== ENCOUNTER 2017-05-25 14:56 | Inpatient (IN) | payer OTHER ==
[2017-05-25] MEDS ORDERED: NS 500 ML IV (16:45)
[2017-05-25] MEDS: ONDANSETRON 4MG/2ML VIAL (J2405) IV ×2 (17:21→19:53)
[2017-05-25] MEDS: NS 1,000 ML IV (17:21)
[2017-05-25 17:49] LABS: BASO % 0.2 % (0.0-1.0); EOS # 0.1 10^3/uL (0.0-0.50); EOS % 0.8 % (0.0-3.0); HEMATOCRIT 31.7 % (36.0-47.0); HEMOGLOBIN 10.6 g/dl (12.0-16.0); IMMATURE GRANULOCYTE % 0.2 % (0-0); LYMPH # 1.4 10^3/uL (1.5-4.5); LYMPH % 23.4 % (24.0-44.0); MEAN CORPUSCULAR HEMOGLOBIN 28.8 pg (27.0-33.0); MEAN CORPUSCULAR HGB CONC 33.4 g/dl (32.0-36.5); MEAN CORPUSCULAR VOLUME 86.1 fl (80.0-96.0); MONO # 0.5 10^3/uL (0.0-0.8); MONO % 7.7 % (0.0-5.0); NEUTROPHILS # 4.1 10^3/uL (1.8-7.7); NEUTROPHILS % 67.7 % (36.0-66.0); PLATELET COUNT, AUTOMATED 230 10^3/uL (150-450); RED BLOOD COUNT 3.68 10^6/uL (4.00-5.40); RED CELL DISTRIBUTION WIDTH 15.9 % (11.5-14.5); WHITE BLOOD COUNT 6.1 10^3/uL (4.0-10.0)
[2017-05-25 17:58] LABS: INR 1.16
[2017-05-25 18:23] LABS: LACTIC ACID SEPSIS PROTOCOL 0.9 MMOL/L (0.4-2.0)
[2017-05-25 18:24] LABS: ALBUMIN 3.2 GM/DL (3.2-5.2); ALBUMIN/GLOBULIN RATIO 0.89 (1.00-1.93); ALKALINE PHOSPHATASE 43 U/L (45-117); ALT/SGPT 7 U/L (12-78); ANION GAP 9 MEQ/L (8-16); AST/SGOT 9 U/L (7-37); BILIRUBIN,DIRECT 0.1 MG/DL (0.0-0.2); BILIRUBIN,TOTAL 0.4 MG/DL (0.2-1.0); BLOOD UREA NITROGEN 5 MG/DL (7-18); CALCIUM LEVEL 7.8 MG/DL (8.5-10.1); CARBON DIOXIDE LEVEL 23 MEQ/L (21-32); CHLORIDE LEVEL 111 MEQ/L (98-107); CREATININE FOR GFR 0.57 MG/DL (0.55-1.02); GLOMERULAR FILTRATION RATE > 60.0 (>58); GLUCOSE, FASTING 85 MG/DL (70-105); LIPASE 85 U/L (73-393); POTASSIUM SERUM 3.4 MEQ/L (3.5-5.1); SODIUM LEVEL 143 MEQ/L (136-145); TOTAL PROTEIN 6.8 GM/DL (6.4-8.2)
[2017-05-25 18:57] LABS: KETONE, URINE AUTO RFX 1+ mg/dL (NEGATIVE); MUCUS, URINE RFX SMALL (NEGATIVE); NITRITE, URINE AUTO RFX NEGATIVE (NEGATIVE); RBC, URINE AUTO RFX 2 /HPF (0-3); SPECIFIC GRAVITY UR AUTO RFX 1.018 (1.002-1.035); SQUAM EPITHELIAL CELL UR AURFX 6 /HPF (0-6); WBC, URINE AUTO RFX 2 /HPF (0-3)
[2017-05-25 18:58] LABS: LEUKOCYTE ESTERASE UR AUTO RFX TRACE (NEGATIVE)
[2017-05-25] MEDS ORDERED: ACETAMINOPHEN TAB 650MG DOSE (2X325MG) PO (19:45)
[2017-05-25] MEDS ORDERED: NS 1,000 ML IV (19:45)
[2017-05-25] MEDS: MORPHINE 2 MG/ML 1ML SYRINGE IV (19:53)
[2017-05-25] MEDS: KCL 20MEQ IN D5/0.45NS 1000ML 1,000 ML IV (22:24)
[2017-05-25] MEDS: CIPROFLOXACIN 400 MG in APPROPRIATE DILUENT 1 EA IV (22:25)
[2017-05-25] MEDS: metroNIDAZOLE 500 MG in APPROPRIATE DILUENT 1 EA IV (23:33)
[2017-05-26] MEDS: MORPHINE 2 MG/ML 1ML SYRINGE IV ×4 (02:34→21:30)
[2017-05-26] MEDS: ONDANSETRON 4MG/2ML VIAL (J2405) IV ×4 (02:35→21:30)
[2017-05-26] MEDS: metroNIDAZOLE 500 MG in APPROPRIATE DILUENT 1 EA IV ×3 (05:12→22:39)
[2017-05-26 06:15] LABS: BASO % 0.4 % (0.0-1.0); EOS # 0.1 10^3/uL (0.0-0.50); EOS % 2.6 % (0.0-3.0); HEMATOCRIT 30.1 % (36.0-47.0); HEMOGLOBIN 10.1 g/dl (12.0-16.0); IMMATURE GRANULOCYTE % 0.2 % (0-0); LYMPH # 1.5 10^3/uL (1.5-4.5); MEAN CORPUSCULAR HEMOGLOBIN 28.8 pg (27.0-33.0); MEAN CORPUSCULAR HGB CONC 33.6 g/dl (32.0-36.5); MEAN CORPUSCULAR VOLUME 85.8 fl (80.0-96.0); MONO # 0.5 10^3/uL (0.0-0.8); MONO % 8.2 % (0.0-5.0); NEUTROPHILS # 3.3 10^3/uL (1.8-7.7); NEUTROPHILS % 60.6 % (36.0-66.0); PLATELET COUNT, AUTOMATED 210 10^3/uL (150-450); RED BLOOD COUNT 3.51 10^6/uL (4.00-5.40); RED CELL DISTRIBUTION WIDTH 15.9 % (11.5-14.5); WHITE BLOOD COUNT 5.5 10^3/uL (4.0-10.0)
[2017-05-26 06:37] LABS: ALBUMIN 2.7 GM/DL (3.2-5.2); ALBUMIN/GLOBULIN RATIO 0.87 (1.00-1.93); ALKALINE PHOSPHATASE 36 U/L (45-117); ALT/SGPT < 6 U/L (12-78); ANION GAP 7 MEQ/L (8-16); AST/SGOT 8 U/L (7-37); BILIRUBIN,TOTAL 0.3 MG/DL (0.2-1.0); BLOOD UREA NITROGEN 3 MG/DL (7-18); CALCIUM LEVEL 7.4 MG/DL (8.5-10.1); CARBON DIOXIDE LEVEL 24 MEQ/L (21-32); CHLORIDE LEVEL 110 MEQ/L (98-107); CREATININE FOR GFR 0.57 MG/DL (0.55-1.02); GLOMERULAR FILTRATION RATE > 60.0 (>58); GLUCOSE, FASTING 90 MG/DL (70-105); POTASSIUM SERUM 3.1 MEQ/L (3.5-5.1); SODIUM LEVEL 141 MEQ/L (136-145); TOTAL PROTEIN 5.8 GM/DL (6.4-8.2)
[2017-05-26 07:38] LABS: C REACTIVE PROTEIN QUANTITATIV 1.01 MG/DL (0.00-0.30)
[2017-05-26] MEDS: KCL 20MEQ IN D5/0.45NS 1000ML 1,000 ML IV ×2 (08:48→18:31)
[2017-05-26] MEDS: POTASSIUM CHLORIDE 10 MEQ SR TABLET PO ×3 (08:49→21:28)
[2017-05-26] MEDS: KCL 10MEQ IN 100ML SWI (KRUN) 10 MEQ in APPROPRIATE DILUENT 1 EA IV ×2 (08:49→11:00)
[2017-05-26 09:10] LABS: ERYTHROCYTE SEDIMENTATION RATE 15 mm/hr (0-20)
[2017-05-26] MEDS: CIPROFLOXACIN 400 MG in APPROPRIATE DILUENT 1 EA IV ×2 (10:50→21:30)
[2017-05-26] MEDS ORDERED: ALBUTEROL 90 MCG/ACT 8GM HFA INHALER INH (18:15)
[2017-05-26] MEDS: FLUTICASONE HFA 110 MCG 12 GM INHALER (FLOVENT) INH (21:00)
[2017-05-26] MEDS: SUCRALFATE 1 GM TAB PO (21:26)
[2017-05-26] MEDS: MIRTAZAPINE 15 MG TAB PO (21:27)
[2017-05-26] MEDS: BISOPROLOL FUMARATE 10 MG TAB PO (21:27)
[2017-05-26] MEDS: BETAXOLOL 0.25% OS (21:27)
[2017-05-26] MEDS: HYDROCORTISONE 10 MG TAB PO (21:28)
[2017-05-26] MEDS: DULoxetine 30 MG CAP (CYMBALTA) PO (21:28)
[2017-05-26] MEDS: DIVALPROEX 500MG *ER* TAB PO (21:28)
[2017-05-26] MEDS: PANTOPRAZOLE 40MG TAB (PROTONIX) PO (21:29)
[2017-05-26] MEDS: MONTELUKAST 10 MG TAB PO (21:29)
[2017-05-26] MEDS: LISINOPRIL 10 MG TAB PO (21:29)
[2017-05-26] MEDS: PRAMIPEXOLE 0.25 MG TAB PO (21:29)
[2017-05-26] MEDS: FOLIC ACID 1 MG TAB PO (21:29)
[2017-05-27] MEDS: KCL 20MEQ IN D5/0.45NS 1000ML 1,000 ML IV ×3 (03:00→17:39)
[2017-05-27] MEDS: ONDANSETRON 4MG/2ML VIAL (J2405) IV ×4 (04:51→23:52)
[2017-05-27] MEDS: metroNIDAZOLE 500 MG in APPROPRIATE DILUENT 1 EA IV ×3 (04:51→23:07)
[2017-05-27] MEDS: MORPHINE 2 MG/ML 1ML SYRINGE IV ×4 (04:52→23:52)
[2017-05-27 06:13] LABS: HEMATOCRIT 32.3 % (36.0-47.0); HEMOGLOBIN 10.6 g/dl (12.0-16.0); MEAN CORPUSCULAR HEMOGLOBIN 28.1 pg (27.0-33.0); MEAN CORPUSCULAR HGB CONC 32.8 g/dl (32.0-36.5); MEAN CORPUSCULAR VOLUME 85.7 fl (80.0-96.0); PLATELET COUNT, AUTOMATED 232 10^3/uL (150-450); RED BLOOD COUNT 3.77 10^6/uL (4.00-5.40); WHITE BLOOD COUNT 4.8 10^3/uL (4.0-10.0)
[2017-05-27] MEDS: LEVOTHYROXINE 25MCG TABLET (0.025MG) PO (06:16)
[2017-05-27 06:36] LABS: ANION GAP 8 MEQ/L (8-16); BLOOD UREA NITROGEN < 1 MG/DL (7-18); CARBON DIOXIDE LEVEL 23 MEQ/L (21-32); CHLORIDE LEVEL 111 MEQ/L (98-107); CREATININE FOR GFR 0.57 MG/DL (0.55-1.02); GLOMERULAR FILTRATION RATE > 60.0 (>58); GLUCOSE, FASTING 103 MG/DL (70-105); MAGNESIUM LEVEL 1.5 MG/DL (1.8-2.4); POTASSIUM SERUM 4.3 MEQ/L (3.5-5.1); SODIUM LEVEL 142 MEQ/L (136-145)
[2017-05-27] MEDS: MULTIVITAMINS/MINERALS THERAP 1 TAB PO (07:49)
[2017-05-27] MEDS: VITAMIN D 1,000 INTERNATIONAL UNITS TABLET PO (07:49)
[2017-05-27] MEDS: HYDROCORTISONE 10 MG TAB PO ×2 (07:49→21:57)
[2017-05-27] MEDS: DIVALPROEX 500MG *ER* TAB PO ×2 (07:49→21:57)
[2017-05-27] MEDS: SUCRALFATE 1 GM TAB PO ×2 (07:49→21:56)
[2017-05-27] MEDS: MAG SULF 1GM/100ML (MAG RUN) 1 GM in APPROPRIATE DILUENT 1 EA IV ×2 (07:49→09:01)
[2017-05-27] MEDS: BETAXOLOL 0.25% OS ×2 (07:50→21:59)
[2017-05-27] MEDS: MAGNESIUM OXIDE 400 MG TAB (MAG-OX) PO ×2 (07:50→21:56)
[2017-05-27] MEDS: FLUTICASONE HFA 110 MCG 12 GM INHALER (FLOVENT) INH ×2 (07:59→21:32)
[2017-05-27] MEDS ORDERED: MAGNESIUM OXIDE 400 MG TAB (MAG-OX) PO (09:00)
[2017-05-27] MEDS: CIPROFLOXACIN 400 MG in APPROPRIATE DILUENT 1 EA IV ×2 (10:14→21:58)
[2017-05-27] MEDS: DULoxetine 30 MG CAP (CYMBALTA) PO (21:55)
[2017-05-27] MEDS: MIRTAZAPINE 15 MG TAB PO (21:55)
[2017-05-27] MEDS: LISINOPRIL 10 MG TAB PO (21:56)
[2017-05-27] MEDS: FOLIC ACID 1 MG TAB PO (21:56)
[2017-05-27] MEDS: POTASSIUM CHLORIDE 10 MEQ SR TABLET PO (21:57)
[2017-05-27] MEDS: BISOPROLOL FUMARATE 10 MG TAB PO (21:57)
[2017-05-27] MEDS: PRAMIPEXOLE 0.25 MG TAB PO (21:58)
[2017-05-27] MEDS: PANTOPRAZOLE 40MG TAB (PROTONIX) PO (21:58)
[2017-05-27] MEDS: MONTELUKAST 10 MG TAB PO (21:58)
[2017-05-28] MEDS: metroNIDAZOLE 500 MG in APPROPRIATE DILUENT 1 EA IV (05:54)
[2017-05-28] MEDS: LEVOTHYROXINE 25MCG TABLET (0.025MG) PO (05:54)
[2017-05-28] MEDS: ONDANSETRON 4MG/2ML VIAL (J2405) IV ×2 (06:01→12:00)
[2017-05-28] MEDS: MORPHINE 2 MG/ML 1ML SYRINGE IV ×2 (06:01→12:01)
[2017-05-28 06:04] LABS: MEAN CORPUSCULAR HEMOGLOBIN 28.9 pg (27.0-33.0); MEAN CORPUSCULAR HGB CONC 33.3 g/dl (32.0-36.5); MEAN CORPUSCULAR VOLUME 86.6 fl (80.0-96.0); PLATELET COUNT, AUTOMATED 224 10^3/uL (150-450); RED BLOOD COUNT 3.81 10^6/uL (4.00-5.40); RED CELL DISTRIBUTION WIDTH 16.4 % (11.5-14.5); WHITE BLOOD COUNT 5.9 10^3/uL (4.0-10.0)
[2017-05-28 06:21] LABS: ANION GAP 6 MEQ/L (8-16); BLOOD UREA NITROGEN 2 MG/DL (7-18); CALCIUM LEVEL 8.2 MG/DL (8.5-10.1); CARBON DIOXIDE LEVEL 26 MEQ/L (21-32); CHLORIDE LEVEL 109 MEQ/L (98-107); CREATININE FOR GFR 0.72 MG/DL (0.55-1.02); GLOMERULAR FILTRATION RATE > 60.0 (>58); GLUCOSE, FASTING 126 MG/DL (70-105); MAGNESIUM LEVEL 1.8 MG/DL (1.8-2.4); POTASSIUM SERUM 4.7 MEQ/L (3.5-5.1); SODIUM LEVEL 141 MEQ/L (136-145)
[2017-05-28] MEDS: FLUTICASONE HFA 110 MCG 12 GM INHALER (FLOVENT) INH (07:26)
[2017-05-28] MEDS: CIPROFLOXACIN 400 MG in APPROPRIATE DILUENT 1 EA IV (09:24)
[2017-05-28] MEDS: SUCRALFATE 1 GM TAB PO (09:25)
[2017-05-28] MEDS: HYDROCORTISONE 10 MG TAB PO (09:25)
[2017-05-28] MEDS: DIVALPROEX 500MG *ER* TAB PO (09:25)
[2017-05-28] MEDS: MAGNESIUM OXIDE 400 MG TAB (MAG-OX) PO (09:25)
[2017-05-28] MEDS: MULTIVITAMINS/MINERALS THERAP 1 TAB PO (09:25)
[2017-05-28] MEDS: BETAXOLOL 0.25% OS (09:25)
[2017-05-28] MEDS: VITAMIN D 1,000 INTERNATIONAL UNITS TABLET PO (09:25)
[2017-05-28] MEDS: KCL 20MEQ IN D5/0.45NS 1000ML 1,000 ML IV (09:26)
== END 2017-05-28 15:57 | disposition home or self-care (01) | DRG 249 ==
LOC: M ED 14:56 → M ED INP 19:41 → M MSPAV 21:49
DX: K52.9 Noninfective gastroenteritis and colitis, unspecified (principal); E27.40 Unspecified adrenocortical insufficiency; M32.10 Systemic lupus erythematosus, organ or system involvement unspecified; M08.00 Unspecified juvenile rheumatoid arthritis of unspecified site; Z79.52 Long term (current) use of systemic steroids; E03.9 Hypothyroidism, unspecified; M79.7 Fibromyalgia; G40.909 Epilepsy, unspecified, not intractable, without status epilepticus; K58.8 Other irritable bowel syndrome; Z79.899 Other long term (current) drug therapy; G43.909 Migraine, unspecified, not intractable, without status migrainosus; E87.6 Hypokalemia

== ENCOUNTER 2017-10-02 17:48 | Emergency (ER) | payer OTHER ==
[2017-10-02] MEDS: NS 1,000 ML IV (19:45)
[2017-10-02 20:40] LABS: BASO % 0.4 % (0.0-1.0); EOS # 0.3 10^3/uL (0.0-0.50); EOS % 4.2 % (0.0-3.0); HEMATOCRIT 37.2 % (36.0-47.0); HEMOGLOBIN 12.5 g/dl (12.0-15.5); IMMATURE GRANULOCYTE % 0.4 % (0-3.0); LYMPH # 2.1 10^3/uL (1.5-4.5); LYMPH % 25.5 % (24.0-44.0); MEAN CORPUSCULAR HEMOGLOBIN 29.3 pg (27.0-33.0); MEAN CORPUSCULAR HGB CONC 33.6 g/dl (32.0-36.5); MEAN CORPUSCULAR VOLUME 87.1 fl (80.0-96.0); MONO # 0.5 10^3/uL (0.0-0.8); MONO % 6.2 % (0.0-5.0); NEUTROPHILS # 5.1 10^3/uL (1.8-7.7); NEUTROPHILS % 63.3 % (36.0-66.0); PLATELET COUNT, AUTOMATED 342 10^3/uL (150-450); RED BLOOD COUNT 4.27 10^6/uL (4.00-5.40); RED CELL DISTRIBUTION WIDTH 15.1 % (11.5-14.5); WHITE BLOOD COUNT 8.1 10^3/uL (4.0-10.0)
[2017-10-02] MEDS: MORPHINE 2 MG/ML 1ML SYRINGE (J2270) IV (20:41)
[2017-10-02 21:19] LABS: LACTIC ACID SEPSIS PROTOCOL 1.5 MMOL/L (0.4-2.0)
[2017-10-02 21:28] LABS: ALBUMIN 3.9 GM/DL (3.2-5.2); ALBUMIN/GLOBULIN RATIO 0.98 (1.00-1.93); ALKALINE PHOSPHATASE 53 U/L (45-117); ALT/SGPT 13 U/L (12-78); ANION GAP 8 MEQ/L (8-16); AST/SGOT 11 U/L (7-37); BILIRUBIN,DIRECT < 0.1 MG/DL (0.0-0.2); BILIRUBIN,TOTAL 0.4 MG/DL (0.2-1.0); BLOOD UREA NITROGEN 8 MG/DL (7-18); CALCIUM LEVEL 8.8 MG/DL (8.5-10.1); CARBON DIOXIDE LEVEL 24 MEQ/L (21-32); CHLORIDE LEVEL 107 MEQ/L (98-107); CREATININE FOR GFR 0.91 MG/DL (0.55-1.30); FREE T4 1.56 NG/DL (0.76-1.46); GLOMERULAR FILTRATION RATE > 60.0 (>58); GLUCOSE, FASTING 81 MG/DL (70-100); MAGNESIUM LEVEL 1.8 MG/DL (1.8-2.4); POTASSIUM SERUM 3.9 MEQ/L (3.5-5.1); SODIUM LEVEL 139 MEQ/L (136-145); TOTAL PROTEIN 7.9 GM/DL (6.4-8.2)
[2017-10-02 23:27] LABS: CONTROL LINE UCG INT CTR LINE PRESENT; URINE PREG TEST NEGATIVE (NEGATIVE)
[2017-10-02 23:34] LABS: KETONE, URINE AUTO RFX TRACE mg/dL (NEGATIVE); LEUKOCYTE ESTERASE UR AUTO RFX NEGATIVE (NEGATIVE); MUCUS, URINE RFX SMALL (NEGATIVE); NITRITE, URINE AUTO RFX NEGATIVE (NEGATIVE); RBC, URINE AUTO RFX 1 /HPF (0-3); SPECIFIC GRAVITY UR AUTO RFX 1.014 (1.002-1.035); SQUAM EPITHELIAL CELL UR AURFX 0 /HPF (0-6); WBC, URINE AUTO RFX 1 /HPF (0-3)
[2017-10-02 23:48] LABS: AMPHETAMINES LEVEL URINE NEGATIVE (NEGATIVE); BARBITURATES URINE NEGATIVE (NEGATIVE); BENZODIAZEPINES URINE NEGATIVE (NEGATIVE); CANNABINOIDS URINE POSITIVE (NEGATIVE); COCAINE METABOLITE URINE NEGATIVE (NEGATIVE); METHADONE URINE NEGATIVE (NEGATIVE); OPIATES URINE POSITIVE (NEGATIVE); PHENCYCLIDINE URINE NEGATIVE (NEGATIVE)
== END 2017-10-03 01:32 | disposition home or self-care (01) ==
LOC: M ED 10-03 01:32
DX: M54.5 Low back pain (principal); R25.1 Tremor, unspecified; E03.9 Hypothyroidism, unspecified; M79.7 Fibromyalgia; F41.9 Anxiety disorder, unspecified; F32.9 Major depressive disorder, single episode, unspecified; I10 Essential (primary) hypertension; G43.909 Migraine, unspecified, not intractable, without status migrainosus; J45.909 Unspecified asthma, uncomplicated; K58.9 Irritable bowel syndrome, unspecified; K21.9 Gastro-esophageal reflux disease without esophagitis; K52.9 Noninfective gastroenteritis and colitis, unspecified; M32.9 Systemic lupus erythematosus, unspecified; G62.9 Polyneuropathy, unspecified; E53.8 Deficiency of other specified B group vitamins; G40.409 Other generalized epilepsy and epileptic syndromes, not intractable, without status epilepticus; N17.9 Acute kidney failure, unspecified; Z87.442 Personal history of urinary calculi; Z79.899 Other long term (current) drug therapy; Z88.6 Allergy status to analgesic agent; Z88.5 Allergy status to narcotic agent; Z88.8 Allergy status to other drugs, medicaments and biological substances; Z88.1 Allergy status to other antibiotic agents
CPT/HCPCS: J2270

== ENCOUNTER 2017-12-10 01:27 | Emergency (ER) | payer OTHER ==
[2017-12-10 02:58] LABS: BASO # 0.1 10^3/uL (0.0-0.2); BASO % 0.6 % (0.0-1.0); EOS % 0.1 % (0.0-3.0); HEMATOCRIT 36.2 % (36.0-47.0); HEMOGLOBIN 11.9 g/dl (12.0-15.5); IMMATURE GRANULOCYTE % 3.3 % (0-3.0); LYMPH # 1.3 10^3/uL (1.5-4.5); LYMPH % 10.3 % (24.0-44.0); MEAN CORPUSCULAR HEMOGLOBIN 30.6 pg (27.0-33.0); MEAN CORPUSCULAR HGB CONC 32.9 g/dl (32.0-36.5); MEAN CORPUSCULAR VOLUME 93.1 fl (80.0-96.0); MONO # 0.4 10^3/uL (0.0-0.8); NEUTROPHILS # 10.4 10^3/uL (1.8-7.7); NEUTROPHILS % 82.7 % (36.0-66.0); PLATELET COUNT, AUTOMATED 135 10^3/uL (150-450); RED BLOOD COUNT 3.89 10^6/uL (4.00-5.40); RED CELL DISTRIBUTION WIDTH 17.3 % (11.5-14.5); WHITE BLOOD COUNT 12.5 10^3/uL (4.0-10.0)
[2017-12-10 03:37] LABS: ALBUMIN 3.1 GM/DL (3.2-5.2); ALBUMIN/GLOBULIN RATIO 0.89 (1.00-1.93); ALKALINE PHOSPHATASE 35 U/L (45-117); ALT/SGPT 11 U/L (12-78); ANION GAP 9 MEQ/L (8-16); AST/SGOT 21 U/L (7-37); BILIRUBIN,DIRECT < 0.1 MG/DL (0.0-0.2); BILIRUBIN,TOTAL 0.4 MG/DL (0.2-1.0); BLOOD UREA NITROGEN 19 MG/DL (7-18); CALCIUM LEVEL 8.2 MG/DL (8.5-10.1); CARBON DIOXIDE LEVEL 27 MEQ/L (21-32); CHLORIDE LEVEL 105 MEQ/L (98-107); CREATININE FOR GFR 1.16 MG/DL (0.55-1.30); FREE THYROXINE INDEX 4.6 % (1.3-4.8); GLOMERULAR FILTRATION RATE 54.8 (>58); GLUCOSE, FASTING 112 MG/DL (70-100); SODIUM LEVEL 141 MEQ/L (136-145); T UPTAKE 41 % (30-39); THYROXINE (T4) 11.1 UG/DL (4.5-12.0); TOTAL PROTEIN 6.6 GM/DL (6.4-8.2); VALPROIC ACID (DEPAKOTE) 96.3 UG/ML (50.0-100.0)
[2017-12-10 03:40] LABS: POTASSIUM SERUM 5.2 MEQ/L (3.5-5.1)
[2017-12-10 03:40] LABS: AMMONIA 20 uMOL/L (<32)
[2017-12-10] MEDS: QUEtiapine FUMARATE 50 MG TAB PO (05:00)
== END 2017-12-10 06:17 | disposition home or self-care (01) ==
LOC: M ED 01:27
DX: R44.1 Visual hallucinations (principal); R41.0 Disorientation, unspecified; J45.909 Unspecified asthma, uncomplicated; E03.9 Hypothyroidism, unspecified; F41.9 Anxiety disorder, unspecified; M06.9 Rheumatoid arthritis, unspecified; M32.9 Systemic lupus erythematosus, unspecified; D64.9 Anemia, unspecified; G40.909 Epilepsy, unspecified, not intractable, without status epilepticus; E27.40 Unspecified adrenocortical insufficiency; N28.9 Disorder of kidney and ureter, unspecified; Z79.899 Other long term (current) drug therapy; Z88.1 Allergy status to other antibiotic agents; Z88.5 Allergy status to narcotic agent; Z88.8 Allergy status to other drugs, medicaments and biological substances
CPT/HCPCS: 70450

== ENCOUNTER 2018-03-21 19:58 | Observation (INO) | payer MEDICARE, MEDICAID, OTHER ==
[2018-03-21 21:42] LABS: BEDSIDE GLUCOSE 113 MG/DL (70-105)
[2018-03-21 22:42] LABS: BASO % 0.2 % (0.0-1.0); EOS # 0.1 10^3/uL (0.0-0.50); EOS % 0.7 % (0.0-3.0); HEMATOCRIT 38.7 % (36.0-47.0); HEMOGLOBIN 12.8 g/dl (12.0-15.5); IMMATURE GRANULOCYTE % 0.7 % (0-3.0); LYMPH # 2.3 10^3/uL (1.5-4.5); LYMPH % 18.5 % (24.0-44.0); MEAN CORPUSCULAR HEMOGLOBIN 27.2 pg (27.0-33.0); MEAN CORPUSCULAR HGB CONC 33.1 g/dl (32.0-36.5); MEAN CORPUSCULAR VOLUME 82.3 fl (80.0-96.0); MONO # 1.1 10^3/uL (0.0-0.8); MONO % 8.4 % (0.0-5.0); NEUTROPHILS # 8.9 10^3/uL (1.8-7.7); NEUTROPHILS % 71.5 % (36.0-66.0); PLATELET COUNT, AUTOMATED 236 10^3/uL (150-450); RED CELL DISTRIBUTION WIDTH 15.5 % (11.5-14.5); WHITE BLOOD COUNT 12.5 10^3/uL (4.0-10.0)
[2018-03-21 22:55] LABS: CONTROL LINE HCG INT CTR LINE PRESENT; HCG, SERUM QUALITATIVE NEGATIVE (NEGATIVE)
[2018-03-21 22:58] LABS: INR 1.05; PROTHROMBIN TIME 13.8 SECONDS (12.1-14.4)
[2018-03-21 22:59] LABS: PARTIAL THROMBOPLASTIN TIME 26.8 SECONDS (25.4-37.6)
[2018-03-21] MEDS: ONDANSETRON 4 MG ORAL DISINTEGRATING TAB (Q0162 PER 1MG) PO ×2 (23:04)
[2018-03-21] MEDS: PERCOCET 5MG/325MG TAB PO ×2 (23:06)
[2018-03-21 23:14] LABS: ALBUMIN 3.4 GM/DL (3.2-5.2); ALBUMIN/GLOBULIN RATIO 0.89 (1.00-1.93); ALKALINE PHOSPHATASE 64 U/L (45-117); ALT/SGPT 15 U/L (12-78); ANION GAP 12 MEQ/L (8-16); AST/SGOT 26 U/L (7-37); BILIRUBIN,DIRECT < 0.1 MG/DL (0.0-0.2); BILIRUBIN,TOTAL 0.5 MG/DL (0.2-1.0); BLOOD UREA NITROGEN 21 MG/DL (7-18); C REACTIVE PROTEIN QUANTITATIV 3.61 MG/DL (0.00-0.30); CALCIUM LEVEL 8.9 MG/DL (8.5-10.1); CARBON DIOXIDE LEVEL 25 MEQ/L (21-32); CHLORIDE LEVEL 101 MEQ/L (98-107); CK-MB VALUE MASS < 1.0 NG/ML (<3.6); CPK CREATINE PHOSPHOKINASE 100 U/L (26-192); CREATININE FOR GFR 1.64 MG/DL (0.55-1.30); GLOMERULAR FILTRATION RATE 36.8 (>58); GLUCOSE, FASTING 68 MG/DL (70-100); POTASSIUM SERUM 4.3 MEQ/L (3.5-5.1); SODIUM LEVEL 138 MEQ/L (136-145); TOTAL PROTEIN 7.2 GM/DL (6.4-8.2); TROPONIN I < 0.02 NG/ML (< 0.10); VALPROIC ACID (DEPAKOTE) 40.3 UG/ML (50.0-100.0)
[2018-03-22] MEDS ORDERED: BISACODYL 10 MG SUPP PR ×2 (01:15)
[2018-03-22] MEDS ORDERED: ACETAMINOPHEN TAB 650MG DOSE (2X325MG) PO ×2 (01:15)
[2018-03-22] MEDS: NS 1,000 ML IV ×4 (03:28→04:16)
[2018-03-22] MEDS: PERCOCET 5MG/325MG TAB PO ×4 (04:15→08:32)
[2018-03-22] MEDS: ONDANSETRON 4MG/2ML VIAL (J2405) IV ×2 (04:37)
[2018-03-22] MEDS: LEVOTHYROXINE 25MCG TABLET (0.025MG) PO ×2 (05:14)
[2018-03-22] MEDS: HEPARIN SOD (PORCINE) 5000 UNITS/ML VIAL SC ×2 (05:14)
[2018-03-22] MEDS ORDERED: SODIUM CHLORIDE 0.9% INJ 10 ML SYR IV ×4 (07:30→14:00)
[2018-03-22] MEDS: FLUTICASONE HFA 110 MCG 12 GM INHALER (FLOVENT) INH ×2 (07:52)
[2018-03-22] MEDS: HYDROCORTISONE 10 MG TAB PO ×2 (08:31)
[2018-03-22] MEDS: METOPROLOL TART 25 MG TABLET PO ×2 (08:32)
[2018-03-22] MEDS: GABAPENTIN 300 MG CAP PO ×2 (08:32)
[2018-03-22] MEDS: FAMOTIDINE 20 MG TAB PO ×2 (08:32)
[2018-03-22] MEDS: OMEPRAZOLE 20 MG CAP PO ×2 (08:32)
[2018-03-22] MEDS: HYDROXYCHLOROQUINE 200 MG TAB PO ×2 (08:33)
[2018-03-22] MEDS: DIVALPROEX 500MG *ER* TAB PO ×2 (08:33)
[2018-03-22] MEDS: MULTIVITAMINS/MINERALS THERAP 1 TAB PO ×2 (08:33)
[2018-03-22] MEDS: ACETAMINOPHEN TAB 650MG DOSE (2X325MG) PO ×2 (08:33)
[2018-03-22 08:39] LABS: HEMATOCRIT 32.7 % (36.0-47.0); MEAN CORPUSCULAR HEMOGLOBIN 27.5 pg (27.0-33.0); MEAN CORPUSCULAR HGB CONC 32.4 g/dl (32.0-36.5); MEAN CORPUSCULAR VOLUME 84.7 fl (80.0-96.0); PLATELET COUNT, AUTOMATED 200 10^3/uL (150-450); RED BLOOD COUNT 3.86 10^6/uL (4.00-5.40); RED CELL DISTRIBUTION WIDTH 15.8 % (11.5-14.5); WHITE BLOOD COUNT 10.4 10^3/uL (4.0-10.0)
[2018-03-22 08:51] LABS: HEMOGLOBIN 10.6 g/dl (12.0-15.5)
[2018-03-22] MEDS: BETAXOLOL 0.25% OS ×2 (09:00)
[2018-03-22] MEDS: NEOSPORIN TOP OINT 15GM TOP ×2 (09:00)
[2018-03-22 09:07] LABS: ANION GAP 7 MEQ/L (8-16); BLOOD UREA NITROGEN 21 MG/DL (7-18); C REACTIVE PROTEIN QUANTITATIV 2.64 MG/DL (0.00-0.30); CALCIUM LEVEL 7.5 MG/DL (8.5-10.1); CARBON DIOXIDE LEVEL 28 MEQ/L (21-32); CHLORIDE LEVEL 107 MEQ/L (98-107); GLOMERULAR FILTRATION RATE 52.7 (>58); GLUCOSE, FASTING 78 MG/DL (70-100); POTASSIUM SERUM 3.3 MEQ/L (3.5-5.1); SODIUM LEVEL 142 MEQ/L (136-145)
[2018-03-22 09:18] LABS: ERYTHROCYTE SEDIMENTATION RATE 3 mm/hr (0-20)
[2018-03-22] MEDS ORDERED: FOLIC ACID 1 MG TAB PO ×2 (21:00)
[2018-03-22] MEDS ORDERED: DULoxetine 30 MG CAP (CYMBALTA) PO ×4 (21:00)
[2018-03-22] MEDS ORDERED: MONTELUKAST 10 MG TAB PO ×2 (21:00)
[2018-03-22] MEDS ORDERED: LATANOPROST 0.005% OPHTH SOLN 2.5 ML OU ×2 (21:00)
[2018-03-22] MEDS ORDERED: MIRTAZAPINE 15 MG TAB PO ×2 (21:00)
[2018-03-22] MEDS ORDERED: HYDROCORTISONE 10 MG TAB PO ×2 (21:00)
[2018-03-22] MEDS ORDERED: GABAPENTIN 300 MG CAP PO ×2 (21:00)
== END 2018-03-22 12:35 | disposition home or self-care (01) ==
LOC: M ED INP 19:59 → M ED 19:58
PROVIDERS: Internal Medicine
DX: R20.2 Paresthesia of skin (principal); R13.10 Dysphagia, unspecified; M32.10 Systemic lupus erythematosus, organ or system involvement unspecified; E27.49 Other adrenocortical insufficiency; I67.89 Other cerebrovascular disease; G40.909 Epilepsy, unspecified, not intractable, without status epilepticus; M06.9 Rheumatoid arthritis, unspecified; D64.9 Anemia, unspecified; M79.7 Fibromyalgia; E03.9 Hypothyroidism, unspecified; I10 Essential (primary) hypertension; K21.9 Gastro-esophageal reflux disease without esophagitis; Z79.899 Other long term (current) drug therapy; F32.9 Major depressive disorder, single episode, unspecified; F41.9 Anxiety disorder, unspecified; Z88.8 Allergy status to other drugs, medicaments and biological substances
CPT/HCPCS: J2405

== ENCOUNTER 2018-05-15 17:28 | Emergency (ER) | payer MEDICARE, MEDICAID ==
[~2018-05-15] VITALS: Ht 152.4 cm; Wt 41.4 kg
[~2018-05-15 17:28] MED LIST changes: +CARA1TAB6 PO; +CIPR-249 PO; +CIPR500T3 PO; -CIPR500T89 PO; +CITRCHW PO; +CYMB60CA3 PO; +DEPA1TAB3 PO; +DEPA500T2 PO; -DILA4TAB PO; +DILA4TAB13 PO; -DILA8TAB4 PO; +DILA8TAB5 PO; +DIVA250T7 PO; +DRIS50003 PO; +FERR32TA PO; -FOLI1TAB2 PO; +FOLI1TAB5 PO; +GABA-843 PO; +GABA-845 PO; +HORI1TAB4 PO; +HYDR-3363 PO; +HYDR200T3 PO; -HYDR25T PO; +HYDR50TA70 PO; +IMIT50TA PO; +KINERET SC; +KLOR10TA76 PO; +LEVO25TA34 PO; +LEVO50TA5 PO; +MAGN400T5 PO; +MELO15TA28 PO; +METH2.5T48 PO; -METH2.5TA PO; +METO25TA4 PO; +MOBI4TAB PO; -MOBI7.5T10 PO; +MONT10TA2 PO; +OMEP40CA2 PO; -ONDA1TAB16 PO; +ONDA8TAB7 PO; +ONDA8TAB8 PO; +OXYC1TAB23 PO; +PERC5TAB12 PO; -PERC5TAB6 PO; -POTA10CA PO; +POTA10TA67 PO; +PRAM0.255 PO; +QUET5TAB PO; +RANI150T PO; +ROZE8TAB16 PO; -ROZE8TAB9 PO; +SPIR-10 PO; -SPIR25TA2 PO; +SUCR1TAB56 PO; +TIZA-208 PO; +TIZA4CAP PO; -TIZA4CAP3 PO; +TRAZ-160 PO; -TRAZ50TA4 PO; +VENTAER INH; +VITA200016 PO; -VITA50003 PO; +VITA50005 PO; +VOLT1GEL15 TOP; -VOLT1GEL24 TOP; -XALA0.002 OU; +XALA0.007 OU; -ZOFR20TA PO; +ZOFR4TAB14 PO; +ZOFR4TAB16 PO; -ZOFR4TAB3 PO
[2018-05-15] MEDS ORDERED: ARIP1TAB4 (17:40)
[2018-05-15] MEDS ORDERED: HYDR-3291 (17:40)
[2018-05-15 19:22] LABS: BASO % 0.4 % (0.0-1.0); HEMATOCRIT 35.6 % (36.0-47.0); HEMOGLOBIN 12.1 g/dl (12.0-15.5); LYMPH # 1.9 10^3/uL (1.5-4.5); MEAN CORPUSCULAR HEMOGLOBIN 29.4 pg (27.0-33.0); MEAN CORPUSCULAR VOLUME 86.4 fl (80.0-96.0); MONO # 0.2 10^3/uL (0.0-0.8); MONO % 2.2 % (0.0-5.0); NEUTROPHILS # 5.1 10^3/uL (1.8-7.7); NEUTROPHILS % 70.4 % (36.0-66.0); PLATELET COUNT, AUTOMATED 195 10^3/uL (150-450); RED BLOOD COUNT 4.12 10^6/uL (4.00-5.40); WHITE BLOOD COUNT 7.2 10^3/uL (4.0-10.0)
--- NOTE | 2018-05-15 19:33 | REP ---
Clinical: Fall. Pain. Technique: Neutral and frog lateral views of the right hip. Findings: Right hip replacement in stable satisfactory position. No acute fracture or dislocation. No periarticular calcifications or loose bodies identified. Impression: No acute fracture or dislocation. Electronically Signed by Peter Duarte MD 05/15/2018 07:25 P
[2018-05-15 19:49] LABS: BLOOD UREA NITROGEN 15 MG/DL (7-18); CALCIUM LEVEL 8.3 MG/DL (8.5-10.1); CARBON DIOXIDE LEVEL 25 MEQ/L (21-32); CHLORIDE LEVEL 105 MEQ/L (98-107); CREATININE FOR GFR 1.02 MG/DL (0.55-1.30); GLOMERULAR FILTRATION RATE > 60.0 (>58); GLUCOSE, FASTING 62 MG/DL (70-100); POTASSIUM SERUM 4.2 MEQ/L (3.5-5.1); SODIUM LEVEL 140 MEQ/L (136-145)
[2018-05-15 20:56] VITALS: BP 138/81
== END 2018-05-15 21:06 | disposition home or self-care (01) ==
LOC: M ED 17:28
DX: R63.0 Anorexia (principal); S70.01XA Contusion of right hip, initial encounter; X58.XXXA Exposure to other specified factors, initial encounter; Y92.89 Other specified places as the place of occurrence of the external cause; I10 Essential (primary) hypertension; J45.909 Unspecified asthma, uncomplicated; E78.5 Hyperlipidemia, unspecified; G62.9 Polyneuropathy, unspecified; K58.9 Irritable bowel syndrome, unspecified; M79.7 Fibromyalgia; M32.9 Systemic lupus erythematosus, unspecified; E27.40 Unspecified adrenocortical insufficiency; Z79.899 Other long term (current) drug therapy; Z88.1 Allergy status to other antibiotic agents; Z88.5 Allergy status to narcotic agent; Z88.8 Allergy status to other drugs, medicaments and biological substances

== ENCOUNTER → 2019-01-21 | Outpatient (REF) | payer MEDICARE, MEDICAID ==
[~2019-01-21] MED LIST changes: -/DULO30CA PO; -/ESOM40CA PO; -/FENT75PA TD; -/ONDA4TA OR; -/QUET10TA PO; +AMAN100C20 PO; -AMAN10CA PO; +ARIP1TAB4; +BISO10TA10 PO; -BISO10TA6 PO; -BISO5TAB5 PO; +BISO5TAB9 PO; +CLOT1CRE27 TOP; -CLOTR1CR TOP; +CYMB1CAP5 PO; -DULO1CAP3 PO; +DULO1CAP6 PO; -DULO30CA PO; +DULO30CA9 PO; +FENT1DIS16 TD; +FOLI1TAB11 PO; -FOLI1TAB5 PO; +GLUCCAP4 PO; -HYDR-3291 PO; +HYDR-4513; +HYDR-4513 PO; +KETO2CR EXT; +NEXI1CAP3 PO; -NORC1TAB4 PO; +NORC1TAB7 PO; +ONDA-1 OR; +PERC10TA26 PO; -PROM25TA GT; +PROM25TA12 GT; +REME15TA PO; +SERO1TAB PO; +TIMO0.5S29 OU; -TIZA-208 PO; +TIZA4TAB4 PO; -TRAZ-160 PO; +TRAZ-252 PO
== END ==
LOC: M LAB REF 18:49
PROVIDERS: ATTEND Internal Medicine Nephrology
DX: N39.0 Urinary tract infection, site not specified (principal)

== ENCOUNTER 2019-01-30 | Inpatient (IN) | payer MEDICARE, MEDICAID ==
[~2019-01-30] VITALS: Ht 152.4 cm; Wt 56.4 kg
[~2019-01-30] MED LIST changes: -GLUCCAP4 PO; -KETO2CR EXT; -PERC10TA26 PO; -REME15TA PO; -TIMO0.5S29 OU
[2019-01-30 00:05] VITALS: BP 150/90
[2019-01-30] MEDS ORDERED: PERC10TA26 PO (02:43)
[2019-01-30] MEDS ORDERED: HYDR-4513 PO (02:43)
[2019-01-30] MEDS ORDERED: KETO2CR EXT (02:43)
[2019-01-30] MEDS ORDERED: GLUCCAP4 PO (02:43)
[2019-01-30] MEDS ORDERED: REME15TA PO (02:43)
[2019-01-30] MEDS ORDERED: TIMO0.5S29 OU (02:43)
--- NOTE | 2019-01-30 02:43 | HPEPDOC ---
[facility] Medical History & Physical Date of Admission Jan 30, 2019 Date of Service: Jan 30, 2019 History and Physical CHIEF COMPLAINT: Left ankle pain HISTORY OF PRESENT ILLNESS: Pt is a 43 yo female with PM of juvenile rheumatoid arthritis, CVA, epilepsy, adrenal insufficiency chronically dependent on cortef, MVP, and renal insufficiency who was transferred from [place] due to comminuted fracture of left distal fibula. Pt reported she had a mechanical fall by accident a few weeks ago and fell down 12 flights of stairs. Reported hitting left elbow and ankle. She continued to have pain in the left ankle; it was noted that her PCP ordered a MRI which showed a comminuted fracture of distal fibula with adjacent bone contusions along the lateral aspect of talus with small talar facture could not be excluded. Pt denies any chest pain, dyspnea, wheezing, pain in any other part of body, or neck pain/stiffness; reported left ankle pain and chronic intermittent nausea. Pt stated she received a head CT after the fall which showed no acute abnormality. Reported the excoriations on b/l forearms are d/t enbrel use from years ago and was diagnosed as drug-induced lupus outpatient; reported she received steroid cream which was helping. PAST MEDICAL HISTORY: 1. Juvenile rheumatoid arthritis 2. Hypothyroidism 3. 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 Chronic intermittent nausea 5. GERD 6. Nephrolithiasis 7. Recurrent UTI 8. Benign MVP 9. Adrenal insufficiency due to chronic steroid use 10.Epilepsy/seizure d/o 11. IBS-diarrhea subtype 12. Migraine 13.Neuropathy 14. Chronic sinusitis 15. CVA 16. CKD 17. Allergic asthma 18. Fibromyalgia 19. Chronic anemia 20. Intermittent sinus tachycardia 21. Head injury 22. Colitis PAST SURGICAL HISTORY: 1. Left big toe (hammertoe)fusion 1989 2. Right wrist surgery 1997 3. Right hip unspecified surgery 4. lefttotal knee replacement 2004 5. Cysto stent placement and removal 6. ESWL 7. Right index and thumb surgery SOCIAL HISTORY: Patient lives at home with mother in a separate unit of the house; bathroom is upstairs Tobacco use:Denies ETOH: Denies FAMILY HISTORY: Non-contributory ALLERGIES: Please see below. REVIEW OF SYSTEMS: CONSTITUTIONAL: Denies fever or chills CARDIOVASCULAR: Denies chest pain or palpitation RESPIRATORY: Denies any dyspnea or wheezing GASTROINTESTINAL: Chronic intermittent nausea GENITOURINARY: Reported renal insufficiency SKIN: chronic skin lesions in b/l forearms MUSCULOSKELETAL: left ankle swelling and pain. Denies any neck pain. Rheumatoid deformities noted in b/l upper and lower extremities NEUROLOGICAL: Depth perception problem as sequlae of prior CVA ENDOCRINE: adrenal insufficiency d/t chronic steroid use HEMATOLOGIC/LYMPHATIC: Denies any easy bleeding/bruising HOME MEDICATIONS: Please see below. PHYSICAL EXAMINATION: GENERAL APPEARANCE: alert and awake, not in acute distress, cooperative and pleasant HEENT: Head normocephalic, atraumatic, poor dentation CARDIOVASCULAR: RRR, no murmur, normal S1 and S2 LUNGS: CTA b/l , no rales, wheezing, or rhonchi ABDOMEN: soft, no guarding, no distention. Bowel sound aus in all 4 quad EXTREMITIES: Mild swelling in left ankle. Muscle strength +5/5 in b/l UE and right LE. Multiple excoriations with openings noted in b/l forearms NEUROLOGICAL: A&OX3, no memory or cognitive function impairment noted PSYCHIATRIC: Appropriate to situation LABORATORY DATA: See below. IMAGING: MRI left ankle showed comminuted fracture of distal fibula with adjacent bone contusion in talus cannot r/o small talar fracture; soft tissue swelling and edema in lateral malleolar region MICROBIOLOGY: Please see below. PLAN AND PLAN: 43 yo female with PMH of JRA, seizure disorder, fibromyalgia, adrenal insuffciency, prior CVA, and hypothyroidism presented to [facility] as transfer from [place] due to comminuted fracture of left distal fibula. 1. Comminuted fracture of left distal fibula with adjacent bone contusion in talus -Consider orthopedic consult in the morning -pt now NPO ; continue outpt DMARD meds and hydrocortisone. Pt will require 1 dose of IV 100mg hydrocortisone followed with 200mg hydrocortisone/24hr infusion. -Cervical spine x ray in flexion and extension view, EKG, echo, CBC, BMP, and PT/PTT ordered for surgical clearance -PT eval and tx after procedure if determined by orthopedic group; pain control. Reported renal insufficiency with last GFR Apr 2018 wnl; follow up with BMP. -fall precaution 2. Juvenile RA -Pt not on outpt infusion -Cont plaquenil 3. Seizure disorder -Cont home med Diavalproex, seizure precaution 4. Adrenal insufficiency -Cont home med Cortef, give stress dose steroid if pt determined to have orthopedic srgery 5. Depression -Cont home med Fluoxetine 6. Hypothyroidism -cont home med 7. Neuropathy -cont home med 8. GERD -cont home med 9. Mitral valve regurgitation -echo ordered as part of surgical clearance 10. CVA -prior CVA with depth perception problem as sequale -Fall precaution 11. Drug-induced lupus -chronic, thought to be d/t enbrel use -tizanidine; start steroid cream PRN -Pt also on antiepilepsy drug; consider follow up outpt 12. Chronic intermittent nausea -Zofran PRN, may be due to polypharmacy/outpt percocet use -Consider switching pain control regimen Vital Signs Vital Signs Date Time Temp Pulse Resp B/P (MAP) Pulse Ox O2 Delivery O2 Flow Rate FiO2 01/30/19 00:20 18 Home Medications Scheduled Cholecalciferol (Vitamin D3) (Vitamin D3) 2,000 Unit Cap, 2,000 UNIT PO DAILY Divalproex Sodium (Divalproex Sodium ER) 250 Mg Tab, 750 MG PO BID Duloxetine Hcl (Duloxetine HCl) 30 Mg Cap, 30 MG PO QHS TAKES WITH 60MG FOR 90MG TOTAL Duloxetine Hcl (Cymbalta) 60 Mg Cap, 60 MG PO QHS TAKES WITH 30MG FOR 90MG TOTAL Ergocalciferol (Vitamin D2) (Drisdol) 50,000 Unit Cap, 50,000 UNIT PO QWEEK THURSDAYS Ferrous Gluconate (Ferrous Gluconate) 324 Mg Tab, 324 MG PO 3XW TAKES SUNDAY, SUNDAY AND SUNDAY Fluticasone Propionate (Flovent Hfa) 110 Mcg/Act Aer, 2 PUFFS INH BID Folic Acid (Folic Acid) 1 Mg Tab, 8 MG PO QHS Gabapentin (Gabapentin) 300 Mg Cap, 300 MG PO DAILY Gabapentin (Gabapentin) 300 Mg Cap, 600 MG PO QHS Glucosam/Chond/Collagen/Hyalur (Glucosamine Chondroitin Cap) 1 Each Capsule, 3 CAP PO DAILY Hydrocortisone (Cortef) 10 Mg Tab, 10 MG PO QHS Hydrocortisone (Hydrocortisone) 10 Mg Tablet, 20 MG PO DAILY Hydroxychloroquine Sulfate (Hydroxychloroquine Sulfate) 200 Mg Tab, 200 MG PO BID Hydroxyzine HCl (Hydroxyzine HCl) 50 Mg Tab, 50 MG PO TID Latanoprost (Xalatan) 0.005 % Fatimah, 1 DROP OU QHS Levothyroxine Sodium (Levoxyl) 25 Mcg Tab, 25 MCG PO DAILY Lisinopril (Lisinopril) 10 Mg Tab, 10 MG PO QHS Magnesium Chloride (Mag64) 64 Mg Tabcr, 128 MG PO DAILY Metoprolol Tartrate (Metoprolol Tartrate) 25 Mg Tab, 12.5 MG PO BID Mirtazapine (Remeron) 15 Mg Tablet, 45 MG PO QHS Montelukast Sodium (Montelukast Sodium) 10 Mg Tab, 10 MG PO QHS Multivitamins (Thera M Plus Tablet) 1 Tab Tab, 1 TAB PO DAILY Omeprazole (Omeprazole) 40 Mg Cap, 40 MG PO DAILY Ranitidine HCl (Ranitidine HCl) 150 Mg Tab, 1 TAB PO BID Timolol Maleate (Timolol Maleate) 0.5% 5ML Drops, 1 DROP OU BID Scheduled PRN Albuterol Sulfate (Ventolin Hfa) 108 Mcg/Act Aer, 2 PUFFS INH Q4H PRN for SHORTNESS OF BREATH Ketoconazole (Ketoconazole) 15 Gm Cream..g., 1 DOSE EXT BID PRN for SORES APPLIES TO ARMS Ondansetron (Ondansetron Odt) 8 Mg Tab, 8 MG PO BID PRN for NAUSEA Oxycodone HCl/Acetaminophen (Percocet 10-325 mg Tablet) 1 Each Tablet, 1 TAB PO BID PRN for PAIN Tizanidine HCl (Tizanidine HCl) 4 Mg Tab, 4 MG PO TID PRN for MUSCLE SPASMS Allergies Coded Allergies: clarithromycin (Verified Allergy, Intermediate, ITCHING, RASH, 01/30/19) dicyclomine (Verified Allergy, Unknown, 01/30/19) bupropion (Verified Adverse Reaction, Severe, GRAND MAL SEIZURES, 01/30/19) tramadol (Verified Adverse Reaction, Severe, GRAND MAL SEIZURES, 01/30/19) aspirin (Verified Adverse Reaction, Intermediate, HEMATURIA, 01/30/19) gold sodium thiomalate (Verified Adverse Reaction, Intermediate, HEMATURIA, 01/30/19) ibuprofen (Verified Adverse Reaction, Intermediate, HEMATURIA, 01/30/19) ketorolac (Verified Adverse Reaction, Intermediate, HEMATURIA, 01/30/19) amitriptyline (Verified Adverse Reaction, Unknown, 01/30/19) A-FIB/CHADSVASC A-FIB History Current/History of A-Fib/PAF?: No ELA JACKSON DO Jan 30, 2019 02:43
[2019-01-30] MEDS ORDERED: KETOCONAZOLE 2% CREAM EXT PRN (03:15)
[2019-01-30] MEDS ORDERED: ALBUTEROL 90 MCG/ACT 8GM HFA INHALER INH PRN (03:15)
[2019-01-30] MEDS ORDERED: ONDANSETRON 4 MG ORAL DISINTEGRATING TAB (Q0162 PER 1MG) PO PRN (03:15)
[2019-01-30 03:35] LABS: INR 1.1; PROTHROMBIN TIME 13.9 SECONDS (11.8-14.0)
[2019-01-30] MEDS: LATANOPROST 0.005% OPHTH SOLN 2.5 ML OU SCH ×2 (03:37→20:17)
[2019-01-30] MEDS: LISINOPRIL 10 MG TAB PO SCH ×2 (03:50→20:16)
[2019-01-30] MEDS: DULoxetine 30 MG CAP (CYMBALTA) PO SCH ×2 (03:51→20:13)
[2019-01-30] MEDS: MORPHINE 4 MG/ML 1ML VIAL/SYRINGE (J2270) IV PRN ×4 (03:51→16:51)
[2019-01-30] MEDS: MONTELUKAST 10 MG TAB PO SCH ×2 (03:51→20:13)
[2019-01-30] MEDS: MIRTAZAPINE 15 MG TAB PO SCH ×2 (03:51→20:13)
[2019-01-30] MEDS: FOLIC ACID 1 MG TAB PO SCH ×2 (03:51→20:14)
[2019-01-30 03:52] LABS: ALBUMIN 2.1 GM/DL (3.2-5.2); BILIRUBIN,TOTAL 0.3 MG/DL (0.2-1.0); CALCIUM LEVEL 8.6 MG/DL (8.5-10.1); CREATININE FOR GFR 1.16 MG/DL (0.55-1.30); GLOMERULAR FILTRATION RATE 54.5 (>58); POTASSIUM SERUM 4.2 MEQ/L (3.5-5.1); TOTAL PROTEIN 5.2 GM/DL (6.4-8.2)
[2019-01-30 04:00] VITALS: BP 114/57
[2019-01-30 04:16] LABS: PARTIAL THROMBOPLASTIN TIME 28.6 SECONDS (25.0-38.4)
[2019-01-30] MEDS: LEVOTHYROXINE 25MCG TABLET (0.025MG) PO SCH (05:32)
[2019-01-30 07:01] VITALS: BP 128/80
[2019-01-30] MEDS: FLUTICASONE HFA 110 MCG 12 GM INHALER (FLOVENT) INH SCH ×2 (07:24→20:32)
[2019-01-30] MEDS: MULTIVITAMINS/MINERALS THERAP 1 TAB PO SCH (08:01)
[2019-01-30] MEDS: GABAPENTIN 300 MG CAP PO SCH ×2 (08:01→20:13)
[2019-01-30] MEDS: DIVALPROEX 250MG *ER* TAB PO SCH ×2 (08:02→20:13)
[2019-01-30] MEDS: VITAMIN D 1,000 INTERNATIONAL UNITS TABLET PO SCH (08:02)
[2019-01-30] MEDS: HYDROCORTISONE 10 MG TAB PO SCH ×2 (08:02→20:13)
[2019-01-30] MEDS: HYDROXYCHLOROQUINE 200 MG TAB PO SCH ×2 (08:02→20:12)
[2019-01-30] MEDS: OMEPRAZOLE 20 MG CAP PO SCH (08:03)
[2019-01-30] MEDS: MAGNESIUM CHLORIDE 64 MG TABCR (SLO MAG) PO SCH (08:03)
[2019-01-30] MEDS: METOPROLOL TART 25 MG TABLET PO SCH ×2 (08:05→20:16)
[2019-01-30] MEDS: TRIAMCINOLONE ACETONIDE 0.025 % 80 GM CREAM TOP SCH ×2 (08:06→20:18)
[2019-01-30] MEDS: HEPARIN SOD (PORCINE) 5000 UNITS/ML VIAL SC SCH ×2 (08:07→20:17)
--- NOTE | 2019-01-30 08:58 | ECGEPIP ---
[facility] Test Date: 2019-01-30 Pat Name: CARISSA PATTERSON Department: Room: [place] [address] Gender: Female Assistant Technician: RAPHAEL : 1975 Requested By: SOL VILLALOBOS Order Number: [id number] Reading MD: Art Busch Measurements Intervals [place] Rate: 89 P: 7 FL: 129 QRS: 8 QRSD: 89 T: -5 QT: 365 QTc: 446 Interpretive Statements SINUS RHYTHM Low voltages - body habitus versus pulmonary disease Diffuse ST/T-wave abnormalities less marked than 03/21/18 Electronically Signed on 01-30-2019 8:58:15 EDT by Art Busch
[2019-01-30] MEDS ORDERED: VITAMIN D 50,000 UNITS CAPSULE (ERGOCALCIFEROL 1.25MG) PO SCH (09:00)
[2019-01-30 14:00] VITALS: BP 144/104
--- NOTE | 2019-01-30 14:03 | REP ---
CERVICAL SPINE SERIES: Eight views. HISTORY: Injury in a fall. Rheumatoid arthritis. FINDINGS: Lateral views done in flexion/extension and neutral demonstrate no subluxation or instability. The atlantoaxial interval is normal and the unchanged with forward flexion. Vertebral body heights are preserved. No fracture or prevertebral soft tissue swelling is seen. There is degenerative disc narrowing at C5-6. AP and open mouth odontoid views show osteoarthritic facet disease in the mid cervical spine bilaterally. Oblique images demonstrate neural foraminal encroachment from facet spurring on the right at 4-5 level. IMPRESSION: No fracture or subluxation seen. Osteoarthritic facet disease, most pronounced on the right at C4-5; and degenerative disc disease at C5-[address] scanning is more sensitive for fracture and is the preferred imaging modality in the adult for cervical spine trauma. No atlantoaxial instability or other instability seen on flexion/extension lateral views. Electronically Signed by Giovanny Antunez MD 01/30/2019 03:13 P
--- NOTE | 2019-01-30 14:03 | REP ---
CHEST X-RAY: Single view. HISTORY: COPD. COMPARISON CHEST X-RAY: March 22, 2018. FINDINGS: The lungs are well inflated and free of infiltrate. Pleural angles are sharp. There are old healed rib fractures on the left posterolaterally. There are degenerative disc changes. Heart is not felt to be enlarged. IMPRESSION: No active disease. Healed rib fractures on the left. Electronically Signed by Giovanny Antunez MD 01/30/2019 03:13 P
--- NOTE | 2019-01-30 18:12 | IPNPDOC ---
Text Note Date of Service The patient was seen on 01/30/19. NOTE SUBJECTIVE: Ms. Burger is a 43-year-old female with JRA. She sustained a mechanical fall down 12 stairs at home. She states she slipped on one of the stairs. She has a closed left ankle fracture. OBJECTIVE: HENT: Her neck is moderately supple, no adenopathy or thyromegaly. Cardiovascular: Regular rate and rhythm. Respiratory: Clear to auscultation. Abdomen: Soft, mild central obesity, relative to her overall body habitus--she is otherwise petite Extremities: Patient has remarkable diffuse joint deformity. Neuro: Patient otherwise to set exhibited focal neuromotor deficit. 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 ASSESSMENT/PLAN: Left ankle fracture. Case discussed with the orthopedic service. Recommendations are for the patient have an orthosis boot. She'll be assessed by physical therapy for home safety eval and then can follow up with orthopedic service in the office. VS,Fishbone, I+O VS, Fishbone, I+O Laboratory Tests 01/30/19 03:19 Calcium Level 8.6, Aspartate Amino Transf (AST/SGOT) 73 H, Alanine Aminotransferase (ALT/SGPT) 83 H, Alkaline Phosphatase 78, Total Bilirubin 0.3, Total Protein 5.2 L, Albumin 2.1 L Vital Signs Date Time Temp Pulse Resp B/P (MAP) Pulse Ox O2 Delivery O2 Flow Rate FiO2 01/30/19 16:51 18 01/30/19 14:00 97.7 98 144/104 (117) 95 I&O- Last 24 Hours up to 6 AM 01/30/19 06:00 Intake Total 0 ml Output Total 400 ml Balance -400 ml ORQUIDEA HOFFMAN MD Jan 30, 2019 18:12
[2019-01-30] MEDS: oxyCODONE 5MG TAB PO PRN (20:21)
[2019-01-31] MEDS: oxyCODONE 5MG TAB PO PRN ×4 (02:22→21:35)
[2019-01-31] MEDS: LEVOTHYROXINE 25MCG TABLET (0.025MG) PO SCH (05:50)
[2019-01-31] MEDS: MORPHINE 4 MG/ML 1ML VIAL/SYRINGE (J2270) IV PRN ×2 (05:50→17:07)
[2019-01-31 06:00] VITALS: BP 133/94
[2019-01-31] MEDS: FLUTICASONE HFA 110 MCG 12 GM INHALER (FLOVENT) INH SCH ×2 (07:40→19:42)
--- NOTE | 2019-01-31 08:29 | REP ---
Cervical spine series: Eight views. History: Rheumatoid arthritis. Flexion/extension view. Comparison study January 30, 2019. Findings: Lateral views done in flexion/extension and neutral positioning again demonstrate no subluxation or instability. No fracture is seen. There is degenerative disc narrowing at C5-6 unchanged. The atlantoaxial interval is felt to be normal. There is osteoarthritic facet disease as before. Impression: Degenerative spondylosis changes unchanged from the study done yesterday. No evidence of subluxation or instability. Electronically Signed by Giovanny Antunez MD 01/31/2019 09:16 A
[2019-01-31] MEDS: HEPARIN SOD (PORCINE) 5000 UNITS/ML VIAL SC SCH ×3 (09:00→20:55)
[2019-01-31] MEDS: DIVALPROEX 250MG *ER* TAB PO SCH ×2 (09:19→20:49)
[2019-01-31] MEDS: HYDROCORTISONE 10 MG TAB PO SCH ×2 (09:19→20:49)
[2019-01-31] MEDS: HYDROXYCHLOROQUINE 200 MG TAB PO SCH ×2 (09:19→20:48)
[2019-01-31] MEDS: GABAPENTIN 300 MG CAP PO SCH ×2 (09:20→20:48)
[2019-01-31] MEDS: FERROUS GLUCONATE 324 MG TAB PO SCH (09:20)
[2019-01-31] MEDS: VITAMIN D 1,000 INTERNATIONAL UNITS TABLET PO SCH (09:20)
[2019-01-31] MEDS: MULTIVITAMINS/MINERALS THERAP 1 TAB PO SCH (09:20)
[2019-01-31] MEDS: OMEPRAZOLE 20 MG CAP PO SCH (09:20)
[2019-01-31] MEDS: MAGNESIUM CHLORIDE 64 MG TABCR (SLO MAG) PO SCH (09:21)
[2019-01-31] MEDS: METOPROLOL TART 25 MG TABLET PO SCH ×2 (09:23→20:48)
[2019-01-31] MEDS: TRIAMCINOLONE ACETONIDE 0.025 % 80 GM CREAM TOP SCH ×2 (09:24→20:50)
--- NOTE | 2019-01-31 14:25 | IPNPDOC ---
Text Note Date of Service The patient was seen on 01/31/19. NOTE SUBJECTIVE: Ms. Burger greatest complaint is of pain to her left ankle at the site of her fracture. She does have an orthosis boot; she finds it heavy to wear. Patient has underlying history of juvenile rheumatoid arthritis and fell on a step at home. OBJECTIVE: Please see vital signs below Physical exam: HENT: Her neck is only moderately supple, no adenopathy or thyromegaly. Cardiovascular: Regular rate and rhythm. Respiratory: Clear to auscultation. Abdomen: Soft, mild central obesity, relative to her overall body habitus--she is otherwise petite Extremities: Patient has remarkable diffuse joint deformity. She has pain and deformity to her medial left ankle. There is swelling, but no discoloration. She has joint deformity with bunion to her right first metatarsophalangeal joint. Neuro: Patient otherwise to set exhibited focal neuromotor deficit. 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 ASSESSMENT/PLAN: Left ankle fracture. Case discussed with the orthopedic service. Recommendations were for the patient have an orthosis boot. She is to ultimately follow-up with the orthopedic service in the office for discussion of surgery. Patient has been assessed by therapy services. She has some balance problems due to the weight of the boot and what she describes as overall weakness. The patient may require a rehabilitation stay in order to get acclimated to wearing her orthosis boot. The patient otherwise remains on her home medication regimen for her extensive medical problems inclusive of hypothyroidism, GERD, epilepsy, migraine headache, and chronic kidney disease among others. VS,Fishbone, I+O VS, Fishbone, I+O Vital Signs Date Time Temp Pulse Resp B/P (MAP) Pulse Ox O2 Delivery O2 Flow Rate FiO2 01/31/19 09:54 18 01/31/19 09:23 100 130/90 01/31/19 06:00 97.7 96 I&O- Last 24 Hours up to 6 AM 01/31/19 06:00 Intake Total 1130 ml Output Total 400 ml Balance 730 ml ORQUIDEA HOFFMAN MD Jan 31, 2019 14:25
[2019-01-31 14:58] VITALS: BP 104/56
[2019-01-31] MEDS: MIRTAZAPINE 15 MG TAB PO SCH (20:47)
[2019-01-31] MEDS: MONTELUKAST 10 MG TAB PO SCH (20:48)
[2019-01-31] MEDS: DULoxetine 30 MG CAP (CYMBALTA) PO SCH (20:49)
[2019-01-31] MEDS: FOLIC ACID 1 MG TAB PO SCH (20:49)
[2019-01-31] MEDS: LISINOPRIL 10 MG TAB PO SCH (20:50)
[2019-01-31] MEDS: LATANOPROST 0.005% OPHTH SOLN 2.5 ML OU SCH (20:50)
[2019-01-31] MEDS ORDERED: PILL CUTTER 1 EACH XX PRN (21:45)
[2019-01-31 22:00] VITALS: BP 116/76
[2019-02-01] MEDS: LEVOTHYROXINE 25MCG TABLET (0.025MG) PO SCH (04:57)
[2019-02-01] MEDS: oxyCODONE 5MG TAB PO PRN (04:58)
[2019-02-01] MEDS ORDERED: ACETAMINOPHEN TAB 650MG DOSE (2X325MG) PO ONE (05:45)
[2019-02-01 06:00] VITALS: BP 115/73
[2019-02-01] MEDS: HEPARIN SOD (PORCINE) 5000 UNITS/ML VIAL SC SCH ×3 (09:00→21:00)
[2019-02-01] MEDS: MAGNESIUM CHLORIDE 64 MG TABCR (SLO MAG) PO SCH (09:16)
[2019-02-01] MEDS: OMEPRAZOLE 20 MG CAP PO SCH (09:16)
[2019-02-01] MEDS: DIVALPROEX 250MG *ER* TAB PO SCH ×2 (09:17→21:30)
[2019-02-01] MEDS: VITAMIN D 1,000 INTERNATIONAL UNITS TABLET PO SCH (09:18)
[2019-02-01] MEDS: HYDROCORTISONE 10 MG TAB PO SCH ×2 (09:18→21:40)
[2019-02-01] MEDS: HYDROXYCHLOROQUINE 200 MG TAB PO SCH ×2 (09:18→21:29)
[2019-02-01] MEDS: MULTIVITAMINS/MINERALS THERAP 1 TAB PO SCH (09:18)
[2019-02-01] MEDS: TRIAMCINOLONE ACETONIDE 0.025 % 80 GM CREAM TOP SCH ×2 (09:20→21:37)
[2019-02-01] MEDS: METOPROLOL TART 25 MG TABLET PO SCH ×2 (09:22→21:36)
[2019-02-01] MEDS: GABAPENTIN 300 MG CAP PO SCH ×2 (09:26→21:37)
[2019-02-01] MEDS: FLUTICASONE HFA 110 MCG 12 GM INHALER (FLOVENT) INH SCH ×2 (10:20→19:55)
[2019-02-01] MEDS: PERCOCET 5MG/325MG TAB PO PRN ×2 (11:52→18:18)
--- NOTE | 2019-02-01 17:12 | IPNPDOC ---
Text Note Date of Service The patient was seen on 02/01/19. NOTE SUBJECTIVE: Patient continues with difficulty managing pain to the site of her left ankle fracture. She prefers Percocet to immediate release oxycodone. Patient has underlying juvenile rheumatoid arthritis. She sustained a fracture with a mechanical fall at home. OBJECTIVE: Physical exam: HENT: Her neck is only moderately supple, no adenopathy or thyromegaly. Cardiovascular: Regular rate and rhythm. Respiratory: Clear to auscultation. Abdomen: Soft, mild central obesity, relative to her overall body habitus--she is otherwise petite Extremities: Patient has remarkable diffuse joint deformity. She has pain and deformity to her medial left ankle. There is swelling, but no discoloration. She has joint deformity with bunion to her right first metatarsophalangeal join t. Neuro: Patient otherwise to set exhibited focal neuromotor deficit. 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 ASSESSMENT/PLAN: 1. Left ankle fracture. Case discussed with the orthopedic service. Recommendations were for the patient have an orthosis boot. She is to ultimately follow-up with the orthopedic service in the office for discussion of surgery. Patient has been assessed by therapy services. She has some balance problems due to the weight of the boot and what she describes as overall weakness. The patient may require a rehabilitation stay in order to get acclimated to wearing her orthosis boot. 2. Pain. The patient prefers Percocet to immediate release oxycodone. We have changed her regimen back to Percocet with increased dosing frequency from what she uses at home. Patient states she is likely fairly acclimated to opiates as she has been using them lifelong. She is also requesting intramuscular injections of opiates. We are attempting to transition her to a rehabilitation or home environment and we would not use this. We have suggested that she try making use of a lidocaine patch and she states that she has used this at home successfully in the past. We will give this a try. The patient otherwise remains on her home medication regimen for her extensive medical problems inclusive of hypothyroidism, GERD, epilepsy, migraine headache, and chronic kidney disease among others. VS,Fishbone, I+O VS, Fishbone, I+O Vital Signs Date Time Temp Pulse Resp B/P (MAP) Pulse Ox O2 Delivery O2 Flow Rate FiO2 9/14/19 12:22 18 97 02/01/19 09:22 90 111/73 02/01/19 06:00 97.4 I&O- Last 24 Hours up to 6 AM 02/01/19 06:00 Intake Total 1520 ml Output Total 750 ml Balance 770 ml ORQUIDEA HOFFMAN MD Feb 01, 2019 17:12
[2019-02-01] MEDS: LIDOCAINE 5% (LIDODERM) PATCH TD SCH (17:27)
[2019-02-01] MEDS: **NOTE PATIENT COMMENT** MISC XX SCH (21:00)
[2019-02-01] MEDS: FOLIC ACID 1 MG TAB PO SCH (21:29)
[2019-02-01] MEDS: MONTELUKAST 10 MG TAB PO SCH (21:30)
[2019-02-01] MEDS: LISINOPRIL 10 MG TAB PO SCH (21:30)
[2019-02-01] MEDS: DULoxetine 30 MG CAP (CYMBALTA) PO SCH (21:30)
[2019-02-01] MEDS: MIRTAZAPINE 15 MG TAB PO SCH (21:30)
[2019-02-01] MEDS: LATANOPROST 0.005% OPHTH SOLN 2.5 ML OU SCH (21:37)
[2019-02-01 22:00] VITALS: BP 132/81
[2019-02-02] MEDS: PERCOCET 5MG/325MG TAB PO PRN ×4 (00:10→19:39)
[2019-02-02] MEDS: LEVOTHYROXINE 25MCG TABLET (0.025MG) PO SCH (05:23)
[2019-02-02 06:00] VITALS: BP 104/61
[2019-02-02] MEDS: LIDOCAINE 5% (LIDODERM) PATCH TD SCH (08:05)
[2019-02-02] MEDS: GABAPENTIN 300 MG CAP PO SCH ×2 (08:06→21:30)
[2019-02-02] MEDS: MULTIVITAMINS/MINERALS THERAP 1 TAB PO SCH (08:06)
[2019-02-02] MEDS: HYDROCORTISONE 10 MG TAB PO SCH ×2 (08:06→21:30)
[2019-02-02] MEDS: VITAMIN D 1,000 INTERNATIONAL UNITS TABLET PO SCH (08:06)
[2019-02-02] MEDS: METOPROLOL TART 25 MG TABLET PO SCH ×2 (08:07→21:30)
[2019-02-02] MEDS: HYDROXYCHLOROQUINE 200 MG TAB PO SCH ×2 (08:08→21:29)
[2019-02-02] MEDS: DIVALPROEX 250MG *ER* TAB PO SCH ×2 (08:08→21:29)
[2019-02-02] MEDS: MAGNESIUM CHLORIDE 64 MG TABCR (SLO MAG) PO SCH (08:09)
[2019-02-02] MEDS: OMEPRAZOLE 20 MG CAP PO SCH (08:09)
[2019-02-02] MEDS: HEPARIN SOD (PORCINE) 5000 UNITS/ML VIAL SC SCH ×3 (08:09→21:28)
[2019-02-02] MEDS: TRIAMCINOLONE ACETONIDE 0.025 % 80 GM CREAM TOP SCH ×2 (08:10→21:31)
[2019-02-02] MEDS: FLUTICASONE HFA 110 MCG 12 GM INHALER (FLOVENT) INH SCH ×2 (08:40→19:56)
--- NOTE | 2019-02-02 20:52 | IPNPDOC ---
Text Note Date of Service The patient was seen on 02/02/19. NOTE Ms. Burger is wearing her boot. It's heavy, but she is getting better at ambulating with it. The patient has juvenile rheumatoid arthritis and has sustained a left ankle fracture. She is stable within the orthosis boot. Physical exam: HENT: Her neck is only moderately supple, no adenopathy or thyromegaly. Cardiovascular: Regular rate and rhythm. Respiratory: Clear to auscultation. Abdomen: Soft, mild central obesity, relative to her overall body habitus--she is otherwise petite Extremities: Patient has remarkable diffuse joint deformity. She has pain and deformity to her medial left ankle. There is swelling, but no discoloration. She has joint deformity with bunion to her right first metatarsophalangeal joint. Neuro: Patient otherwise to set exhibited focal neuromotor deficit. 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 ASSESSMENT/PLAN: 1. Left ankle fracture. Case discussed with the orthopedic service. Recommendations were for the patient have an orthosis boot. She is to ultimately follow-up with the orthopedic service in the office for discussion of surgery. Patient has been assessed by therapy services. She has some balance problems due to the weight of the boot and what she describes as overall weakness. The patient may require a rehabilitation stay in order to get acclimated to wearing her orthosis boot. 2. Pain. The patient prefers Percocet to immediate release oxycodone. We have changed her regimen back to Percocet with increased dosing frequency from what she uses at home. Patient states she is likely fairly acclimated to opiates as she has been using them lifelong. She is also requesting intramuscular injections of opiates. We are attempting to transition her to a rehabilitation or home environment and we would not use this. We have suggested that she try making use of a lidocaine patch and she states that she has used this at home successfully in the past. We will give this a try. The patient otherwise remains on her home medication regimen for her extensive medical problems inclusive of hypothyroidism, GERD, epilepsy, migraine headache, and chronic kidney disease among others. VS,Fishbone, I+O VS, Fishbone, I+O Vital Signs Date Time Temp Pulse Resp B/P (MAP) Pulse Ox O2 Delivery O2 Flow Rate FiO2 02/02/19 19:39 18 02/02/19 14:00 98.6 104 92 02/02/19 08:07 110/60 I&O- Last 24 Hours up to 6 AM 02/02/19 06:00 Intake Total 1240 ml Balance 1240 ml ORQUIDEA HOFFMAN MD Feb 02, 2019 20:52
[2019-02-02] MEDS: FOLIC ACID 1 MG TAB PO SCH (21:28)
[2019-02-02] MEDS: MIRTAZAPINE 15 MG TAB PO SCH (21:29)
[2019-02-02] MEDS: LISINOPRIL 10 MG TAB PO SCH (21:30)
[2019-02-02] MEDS: DULoxetine 30 MG CAP (CYMBALTA) PO SCH (21:30)
[2019-02-02] MEDS: MONTELUKAST 10 MG TAB PO SCH (21:30)
[2019-02-02] MEDS: **NOTE PATIENT COMMENT** MISC XX SCH (21:31)
[2019-02-02] MEDS: LATANOPROST 0.005% OPHTH SOLN 2.5 ML OU SCH (21:31)
[2019-02-02 22:00] VITALS: BP 113/66
[2019-02-03 06:00] VITALS: BP 121/76
[2019-02-03] MEDS: LEVOTHYROXINE 25MCG TABLET (0.025MG) PO SCH (06:21)
[2019-02-03] MEDS: FLUTICASONE HFA 110 MCG 12 GM INHALER (FLOVENT) INH SCH ×2 (07:47→20:44)
[2019-02-03] MEDS: HEPARIN SOD (PORCINE) 5000 UNITS/ML VIAL SC SCH ×2 (09:00→20:27)
[2019-02-03] MEDS: OMEPRAZOLE 20 MG CAP PO SCH (09:35)
[2019-02-03] MEDS: FERROUS GLUCONATE 324 MG TAB PO SCH (09:35)
[2019-02-03] MEDS: HYDROXYCHLOROQUINE 200 MG TAB PO SCH ×2 (09:35→20:25)
[2019-02-03] MEDS: DIVALPROEX 250MG *ER* TAB PO SCH ×2 (09:35→20:26)
[2019-02-03] MEDS: HYDROCORTISONE 10 MG TAB PO SCH ×2 (09:36→20:25)
[2019-02-03] MEDS: METOPROLOL TART 25 MG TABLET PO SCH ×2 (09:36→20:27)
[2019-02-03] MEDS: MULTIVITAMINS/MINERALS THERAP 1 TAB PO SCH (09:36)
[2019-02-03] MEDS: VITAMIN D 1,000 INTERNATIONAL UNITS TABLET PO SCH (09:36)
[2019-02-03] MEDS: GABAPENTIN 300 MG CAP PO SCH ×2 (09:36→20:27)
[2019-02-03] MEDS: LIDOCAINE 5% (LIDODERM) PATCH TD SCH (09:37)
[2019-02-03] MEDS: TRIAMCINOLONE ACETONIDE 0.025 % 80 GM CREAM TOP SCH ×2 (09:38→20:28)
[2019-02-03] MEDS: MAGNESIUM CHLORIDE 64 MG TABCR (SLO MAG) PO SCH (09:42)
[2019-02-03] MEDS: PERCOCET 5MG/325MG TAB PO PRN ×2 (09:45→20:25)
[2019-02-03 14:00] VITALS: BP 72/49
[2019-02-03 16:00] VITALS: BP 143/70
[2019-02-03] MEDS: FOLIC ACID 1 MG TAB PO SCH (20:25)
[2019-02-03] MEDS: MONTELUKAST 10 MG TAB PO SCH (20:26)
[2019-02-03] MEDS: DULoxetine 30 MG CAP (CYMBALTA) PO SCH (20:26)
[2019-02-03] MEDS: LISINOPRIL 10 MG TAB PO SCH (20:26)
[2019-02-03] MEDS: MIRTAZAPINE 15 MG TAB PO SCH (20:27)
[2019-02-03] MEDS: **NOTE PATIENT COMMENT** MISC XX SCH (20:28)
[2019-02-03] MEDS: LATANOPROST 0.005% OPHTH SOLN 2.5 ML OU SCH (20:28)
[2019-02-03 22:00] VITALS: BP 136/70
--- NOTE | 2019-02-03 22:03 | IPNPDOC ---
Text Note Date of Service The patient was seen on 02/03/19. NOTE Ms. Burger is a 43-year-old female who sustained a left ankle fracture during a mechanical fall at home. She has underlying juvenile rheumatoid arthritis. She has been placed in orthosis boot, which she finds heavy to wear. Physical exam: HENT: Her neck is only moderately supple, no adenopathy or thyromegaly. Cardiovascular: Regular rate and rhythm. Respiratory: Clear to auscultation. Abdomen: Soft, mild central obesity, relative to her overall body habitus--she is otherwise petite Extremities: Patient has remarkable diffuse joint deformity. She has boot to the left lower extremity She has joint deformity with bunion to her right first metatarsophalangeal joint. Neuro: Patient otherwise to set exhibited focal neuromotor deficit. 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 Assessment/plan: 1. Left ankle fracture. Case discussed with the orthopedic service. Recommendations were for the patient have an orthosis boot. She is to ultimately follow-up with the orthopedic service in the office for discussion of surgery.(Dr. Mendieta) Patient has been assessed by therapy services. She has some balance problems due to the weight of the boot and what she describes as overall weakness. The p atient may require a rehabilitation stay in order to get acclimated to wearing her orthosis boot. 2. Pain. The patient prefers Percocet to immediate release oxycodone. We have changed her regimen back to Percocet with increased dosing frequency from what she uses at home. Patient states she is likely fairly acclimated to opiates as she has been using them lifelong. We are attempting to transition her to a rehabilitation or home environment. We have suggested that she try making use of a lidocaine patch and she states that she has used this at home successfully in the past. This appears to be helping with pain control. The patient otherwise remains on her home medication regimen for her extensive medical problems inclusive of hypothyroidism, GERD, epilepsy, migraine headache, and chronic kidney disease among others. VS,Fishbone, I+O VS, Fishbone, I+O Vital Signs Date Time Temp Pulse Resp B/P (MAP) Pulse Ox O2 Delivery O2 Flow Rate FiO2 02/03/19 20:27 108 136/70 02/03/19 20:25 18 02/03/19 14:00 98.2 96 I&O- Last 24 Hours up to 6 AM 02/03/19 06:00 Intake Total 1500 ml Output Total 1000 ml Balance 500 ml ORQUIDEA HOFFMAN MD Feb 03, 2019 22:03
[2019-02-03] MEDS ORDERED: MORPHINE 4 MG/ML 1ML VIAL/SYRINGE (J2270) IV ONE (22:30)
[2019-02-03] MEDS ORDERED: MORPHINE 4 MG/ML 1ML VIAL/SYRINGE (J2270) IM ONE (22:45)
[2019-02-04] MEDS: PERCOCET 5MG/325MG TAB PO PRN ×2 (04:39→14:58)
[2019-02-04 06:00] VITALS: BP 98/72
[2019-02-04] MEDS: LEVOTHYROXINE 25MCG TABLET (0.025MG) PO SCH (07:00)
[2019-02-04] MEDS: FLUTICASONE HFA 110 MCG 12 GM INHALER (FLOVENT) INH SCH ×3 (08:00→20:50)
[2019-02-04] MEDS: HEPARIN SOD (PORCINE) 5000 UNITS/ML VIAL SC SCH ×2 (09:00→20:51)
[2019-02-04] MEDS: OMEPRAZOLE 20 MG CAP PO SCH (09:29)
[2019-02-04] MEDS: LIDOCAINE 5% (LIDODERM) PATCH TD SCH (09:29)
[2019-02-04] MEDS: MAGNESIUM CHLORIDE 64 MG TABCR (SLO MAG) PO SCH (09:29)
[2019-02-04] MEDS: DIVALPROEX 250MG *ER* TAB PO SCH ×2 (09:30→20:50)
[2019-02-04] MEDS: HYDROCORTISONE 10 MG TAB PO SCH ×2 (09:30→20:48)
[2019-02-04] MEDS: GABAPENTIN 300 MG CAP PO SCH ×2 (09:30→20:50)
[2019-02-04] MEDS: VITAMIN D 1,000 INTERNATIONAL UNITS TABLET PO SCH (09:30)
[2019-02-04] MEDS: HYDROXYCHLOROQUINE 200 MG TAB PO SCH ×2 (09:30→20:49)
[2019-02-04] MEDS: MULTIVITAMINS/MINERALS THERAP 1 TAB PO SCH (09:31)
[2019-02-04] MEDS: TRIAMCINOLONE ACETONIDE 0.025 % 80 GM CREAM TOP SCH ×2 (09:33→20:51)
[2019-02-04] MEDS: METOPROLOL TART 25 MG TABLET PO SCH ×2 (09:33→20:48)
[2019-02-04] MEDS: MORPHINE 15 MG SA TAB PO SCH ×2 (11:10→20:50)
[2019-02-04 14:00] VITALS: BP 112/73
--- NOTE | 2019-02-04 18:38 | IPNPDOC ---
Subjective Date Seen The patient was seen on 02/04/19. Subjective Chief Complaint/HPI Increased pain overnight involving right leg, feels she "pulled a muscle." Received IM morphine x 1 with some improvement. Rates pain 7/10 currently, not controlled with oral percocet. Mobility limited, walked about 20 feet General: Reports: Normal Appetite; Denies: Chills, Night Sweats, Fatigue, Malaise Constitutional: Denies: Chills, Fever, Night Sweats Eyes: Denies: Pain, Vision change ENT: Denies: Head Aches, Ear Pain, Dysphagia Skin: Denies: Rash, Lesions, Breakdown Pulmonary: Denies: Dyspnea, Cough Cardiovascular: Denies: Chest Pain, Palpitations, Orthopnea, Paroxysmal Noc. Dyspnea, Lt Headedness Gastrointestinal: Denies: Nausea, Vomiting, Abdominal Pain, Diarrhea, Constipat ion Genitourinary: Denies: Dysuria, Frequency, Incontinence, Retention Hematologic: Denies: Bruising, Bleeding Excessively Musculoskeletal: Reports: Muscle Pain (right leg); Denies: Neck Pain, Back Pain, Joint Pain, Spasms Neurological: Denies: Weakness, Numbness, Change in speech, Confusion Psych: Reports: Mood Normal; Denies: Depression, Memory Issues Objective Physical Examination General Exam: Positive: Cooperative, Mild Distress Eye Exam: Positive: PERRLA ENT Exam: Positive: Pharynx Normal, Nares Patent, Tympanic Membranes Normal Neck Exam: Positive: Supple, Lymphadenopathy, Other (no neck masses or LAD) Chest Exam: Positive: Clear to auscultation, Normal air movement Heart Exam: Positive: Rate Normal, Normal S1, Normal S2; Negative: Tachycardic, Bradycardic, Regular Rhythm, Irregular Rhythm, Gallops, Murmurs, Rubs, Other Extremity Exam: Positive: Other (Chronic subluxations associated with JRA) Assessment /Plan Assessment 1. Traumatic Left Ankle fracture - non-operative mgmt - f/u with ortho as outpatient - walking boot - lidoderm patch 2. Chronic pain syndrome - stop IV morphine - start MS contin 15 mg bid, and prn percocet 3. Juvenile RA - continue plaquenil, neurontin, cortef 4. Chronic steroid use - continue cortef, no reason for stress dose steroids 5. HTN - controlled with lopressor + lisinopril Dispo: D/w OT and Pt may need Subacute rehab placement Plan/VTE VTE Prophylaxis Ordered?: Yes VS, I&O, 24H, Fishbone Vital Signs/I&O Vital Signs Date Time Temp Pulse Resp B/P (MAP) Pulse Ox O2 Delivery O2 Flow Rate FiO2 02/04/19 06:00 98.5 94 18 98/72 (81) 96 I&O- Last 24 Hours up to 6 AM 02/04/19 06:00 Intake Total 210 ml Output Total 600 ml Balance -390 ml CORAZON PERALTA MD Feb 04, 2019 08:50
[2019-02-04] MEDS: FOLIC ACID 1 MG TAB PO SCH (20:48)
[2019-02-04] MEDS: MIRTAZAPINE 15 MG TAB PO SCH (20:49)
[2019-02-04] MEDS: DULoxetine 30 MG CAP (CYMBALTA) PO SCH (20:49)
[2019-02-04] MEDS: LISINOPRIL 10 MG TAB PO SCH (20:49)
[2019-02-04] MEDS: MONTELUKAST 10 MG TAB PO SCH (20:50)
[2019-02-04] MEDS: LATANOPROST 0.005% OPHTH SOLN 2.5 ML OU SCH (20:51)
[2019-02-04] MEDS: **NOTE PATIENT COMMENT** MISC XX SCH (20:51)
[2019-02-04 22:00] VITALS: BP 134/67
[2019-02-05] MEDS: PERCOCET 5MG/325MG TAB PO PRN ×2 (00:19→06:28)
[2019-02-05 06:00] VITALS: BP 133/70
[2019-02-05] MEDS: LEVOTHYROXINE 25MCG TABLET (0.025MG) PO SCH (06:27)
--- NOTE | 2019-02-05 08:18 | IPNPDOC ---
Subjective Date Seen The patient was seen on 02/05/19. Subjective Chief Complaint/HPI Pain better controlled with MS contin but not fully resolved. General: Denies: ROS Unobtainable, Chills, Night Sweats, Fatigue, Malaise, Normal Appetite, Other Symptoms Cardiovascular: Denies: Chest Pain, Palpitations, Orthopnea, Paroxysmal Noc. Dyspnea, Edema, Lt Headedness, Other Symptoms Gastrointestinal: Denies: Nausea, Vomiting, Abdominal Pain, Diarrhea, Constipation, Melena, Hematochezia, Other Symptoms Musculoskeletal: Reports: Leg Pain Neurological: Denies: Weakness, Numbness, Incoordination, Change in speech, Confusion, Seizures, Other Symptoms Psych: Reports: Mood Normal Objective Physical Examination General Exam: Positive: Cooperative, No Acute Distress Eye Exam: Positive: PERRLA, EOMI ENT Exam: Positive: Mucous membr. moist/pink, Pharynx Normal, Tongue Midline Neck Exam: Positive: Supple Chest Exam: Positive: Clear to auscultation, Normal air movement Heart Exam: Positive: Rate Normal, Normal S1, Normal S2; Negative: Tachycardic, Bradycardic, Regular Rhythm, Irregular Rhythm, Gallops, Murmurs, Rubs, Other Abdomen Exam: Positive: Normal bowel sounds, Soft; Negative: Tenderness Extremity Exam: Positive: Normal pulses, Other (Chronic jpoint subluxations associated with JRA); Negative: Edema Neuro Exam: Positive: Normal Speech Psych Exam: Positive: Mental status NL, Mood NL Assessment /Plan Assessment 1. Traumatic Left Ankle fracture - non-operative mgmt - f/u with ortho as outpatient - walking boot - lidoderm patch 2. Chronic pain syndrome - MS contin 15 mg bid, and prn percocet 3. Juvenile RA - continue plaquenil, neurontin, cortef 4. Chronic steroid use - continue cortef 5. HTN - controlled with lopressor + lisinopril 6. DVT prophylaxis - SCDs only - Refusing chemical prophylaxis due to hx of hemorrhagic stroke Dispo: Awaiting Subacute rehab placement Plan/VTE VTE Prophylaxis Ordered?: No (Patient refusing due to hx of Acute stroke with hemorrhagic conversion) VS, I&O, 24H, Fishbone Vital Signs/I&O Vital Signs Date Time Temp Pulse Resp B/P (MAP) Pulse Ox O2 Delivery O2 Flow Rate FiO2 02/05/19 06:58 18 02/05/19 06:00 98.0 90 133/70 (82) 98 I&O- Last 24 Hours up to 6 AM 02/05/19 06:00 Intake Total 960 ml Output Total 625 ml Balance 335 ml CORAZON PERALTA MD Feb 05, 2019 08:18
[2019-02-05] MEDS: MAGNESIUM CHLORIDE 64 MG TABCR (SLO MAG) PO SCH (08:31)
[2019-02-05] MEDS: LIDOCAINE 5% (LIDODERM) PATCH TD SCH (08:31)
[2019-02-05] MEDS: DIVALPROEX 250MG *ER* TAB PO SCH (08:32)
[2019-02-05] MEDS: MULTIVITAMINS/MINERALS THERAP 1 TAB PO SCH (08:32)
[2019-02-05] MEDS: HYDROCORTISONE 10 MG TAB PO SCH (08:32)
[2019-02-05 08:33] VITALS: BP 133/70
[2019-02-05] MEDS: FERROUS GLUCONATE 324 MG TAB PO SCH (08:33)
[2019-02-05] MEDS: METOPROLOL TART 25 MG TABLET PO SCH (08:33)
[2019-02-05] MEDS: GABAPENTIN 300 MG CAP PO SCH (08:35)
[2019-02-05] MEDS: VITAMIN D 1,000 INTERNATIONAL UNITS TABLET PO SCH (08:35)
[2019-02-05] MEDS: OMEPRAZOLE 20 MG CAP PO SCH (08:35)
[2019-02-05] MEDS: HYDROXYCHLOROQUINE 200 MG TAB PO SCH (08:35)
[2019-02-05] MEDS: HEPARIN SOD (PORCINE) 5000 UNITS/ML VIAL SC SCH (08:36)
[2019-02-05] MEDS: MORPHINE 15 MG SA TAB PO SCH (08:36)
[2019-02-05] MEDS: TRIAMCINOLONE ACETONIDE 0.025 % 80 GM CREAM TOP SCH (08:36)
[2019-02-05] MEDS: FLUTICASONE HFA 110 MCG 12 GM INHALER (FLOVENT) INH SCH (08:45)
[2019-02-05 10:52] LABS: BLOOD UREA NITROGEN 31 MG/DL (7-18); CALCIUM LEVEL 8.9 MG/DL (8.5-10.1); CARBON DIOXIDE LEVEL 19 MEQ/L (21-32); CHLORIDE LEVEL 110 MEQ/L (98-107); CREATININE FOR GFR 0.85 MG/DL (0.55-1.30); GLOMERULAR FILTRATION RATE > 60.0 (>58); GLUCOSE, FASTING 102 MG/DL (70-100); POTASSIUM SERUM 4.8 MEQ/L (3.5-5.1); SODIUM LEVEL 137 MEQ/L (136-145)
[2019-02-05 11:08] LABS: HEMATOCRIT 39.9 % (36.0-47.0); MEAN CORPUSCULAR HEMOGLOBIN 31.1 pg (27.0-33.0); MEAN CORPUSCULAR HGB CONC 32.6 g/dl (32.0-36.5); MEAN CORPUSCULAR VOLUME 95.5 fl (80.0-96.0); PLATELET COUNT, AUTOMATED 245 10^3/uL (150-450); RED BLOOD COUNT 4.18 10^6/uL (4.00-5.40); WHITE BLOOD COUNT 11.6 10^3/uL (4.0-10.0)
[2019-02-05] MEDS ORDERED: LIDO5TD TD (12:19)
[2019-02-05] MEDS ORDERED: MORP15TASA PO (12:19)
== END 2019-02-05 13:50 | DRG 563 ==
LOC: M MS5PR
PROVIDERS: ADMIT Internal Medicine; ATTEND Internal Medicine
DX: S82.832A Other fracture of upper and lower end of left fibula, initial encounter for closed fracture (principal); E27.40 Unspecified adrenocortical insufficiency; S90.02XA Contusion of left ankle, initial encounter; E03.9 Hypothyroidism, unspecified; K21.9 Gastro-esophageal reflux disease without esophagitis; G43.909 Migraine, unspecified, not intractable, without status migrainosus; M79.7 Fibromyalgia; G40.909 Epilepsy, unspecified, not intractable, without status epilepticus; M08.00 Unspecified juvenile rheumatoid arthritis of unspecified site; Z86.73 Personal history of transient ischemic attack (TIA), and cerebral infarction without residual deficits; F32.9 Major depressive disorder, single episode, unspecified; I34.0 Nonrheumatic mitral (valve) insufficiency; M32.0 Drug-induced systemic lupus erythematosus; Z79.899 Other long term (current) drug therapy; Z88.8 Allergy status to other drugs, medicaments and biological substances; Z88.6 Allergy status to analgesic agent; Z79.52 Long term (current) use of systemic steroids

== ENCOUNTER → 2019-02-06 | Outpatient (REF) ==
[~2019-02-06] MED LIST changes: +GLUCCAP4 PO; +KETO2CR EXT; +LIDO5TD TD; +MORP15TASA PO; +PERC10TA26 PO; +REME15TA PO; +TIMO0.5S29 OU
[2019-02-06 10:49] LABS: MAGNESIUM LEVEL 1.5 MG/DL (1.8-2.4); VALPROIC ACID (DEPAKOTE) 65.3 UG/ML (50.0-100.0)
[2019-02-06 11:52] LABS: TOTAL 25(OH) VITAMIN D 46.2 NG/ML (30.0-100.0)
== END ==
LOC: SKLAB5 07:13
PROVIDERS: ATTEND Internal Medicine
DX: D64.9 Anemia, unspecified (principal)

== ENCOUNTER → 2019-02-13 | Outpatient (REF) | LOC: SKLAB5 08:13 | PROVIDERS: ATTEND Internal Medicine | DX: E83.42 Hypomagnesemia (principal) ==

== ENCOUNTER → 2019-02-18 | Outpatient (REF) ==
[2019-02-18 13:56] LABS: HEMATOCRIT 36.7 % (36.0-47.0); MEAN CORPUSCULAR HEMOGLOBIN 30.6 pg (27.0-33.0); MEAN CORPUSCULAR HGB CONC 32.7 g/dl (32.0-36.5); MEAN CORPUSCULAR VOLUME 93.6 fl (80.0-96.0); PLATELET COUNT, AUTOMATED 209 10^3/uL (150-450); RED BLOOD COUNT 3.92 10^6/uL (4.00-5.40); WHITE BLOOD COUNT 11.4 10^3/uL (4.0-10.0)
[2019-02-18 14:04] LABS: AMORPHOUS SEDIMENT MODERATE (NEGATIVE); APPEARANCE, URINE CLOUDY (CLEAR); BACTERIA, URINE AUTO 1+ (NEGATIVE); BILIRUBIN, URINE AUTO 1+ (NEGATIVE); BLOOD, URINE BLOOD NEGATIVE (NEGATIVE); COLOR, URINE YELLOW (YELLOW); GLUCOSE, URINE (UA) AUTO NEGATIVE (NEGATIVE); KETONE, URINE AUTO TRACE mg/dL (NEGATIVE); LEUKOCYTE ESTERASE, URINE AUTO 3+ (NEGATIVE); MUCUS, URINE SMALL (NEGATIVE); NITRITE, URINE AUTO NEGATIVE (NEGATIVE); PROTEIN, URINE AUTO 2+ mg/dL (NEGATIVE); RBC, URINE AUTO 5 /HPF (0-3); SPECIFIC GRAVITY URINE AUTO 1.036 (1.002-1.035); SQUAMOUS EPITHELIAL CELL UR AU 4 /HPF (0-6); UROBILINOGEN, URINE AUTO 0.2 mg/dL (0.0-2.0); WBC, URINE AUTO 38 /HPF (0-3)
[2019-02-18 14:10] LABS: TOTAL PROTEIN,RANDOM URINE 222.6 MG/DL (0.0-12.0)
[2019-02-18 14:23] LABS: ALBUMIN 1.9 GM/DL (3.2-5.2); ALT/SGPT 46 U/L (12-78); BILIRUBIN,TOTAL 0.2 MG/DL (0.2-1.0); BLOOD UREA NITROGEN 24 MG/DL (7-18); C REACTIVE PROTEIN QUANTITATIV 2.93 MG/DL (0.00-0.30); CALCIUM LEVEL 8.7 MG/DL (8.5-10.1); CARBON DIOXIDE LEVEL 33 MEQ/L (21-32); CHLORIDE LEVEL 106 MEQ/L (98-107); CREATININE FOR GFR 0.88 MG/DL (0.55-1.30); GLOMERULAR FILTRATION RATE > 60.0 (>58); GLUCOSE, FASTING 74 MG/DL (70-100); POTASSIUM SERUM 5.3 MEQ/L (3.5-5.1); SODIUM LEVEL 142 MEQ/L (136-145); TOTAL PROTEIN 5.5 GM/DL (6.4-8.2)
[2019-02-18 14:39] LABS: LYMPHOCYTES 19 % (16-44); MONOCYTES 5 % (0-5); NEUTROPHILS 76 % (28-66)
[2019-02-18 14:40] LABS: PLATELET ESTIMATE NORMAL (NORMAL)
[2019-02-18 14:57] LABS: ERYTHROCYTE SEDIMENTATION RATE 14 mm/hr (0-20)
== END ==
LOC: SKLAB5 11:44
PROVIDERS: ATTEND Internal Medicine
DX: M06.9 Rheumatoid arthritis, unspecified (principal); E03.9 Hypothyroidism, unspecified

== ENCOUNTER → 2019-02-20 | Outpatient (REF) ==
[~2019-02-20] MED LIST changes: -OMEP40CA2 PO; +OMEP40CA97 PO
[2019-02-20 08:50] LABS: BLOOD UREA NITROGEN 21 MG/DL (7-18); CALCIUM LEVEL 8.5 MG/DL (8.5-10.1); CARBON DIOXIDE LEVEL 32 MEQ/L (21-32); CHLORIDE LEVEL 102 MEQ/L (98-107); CREATININE FOR GFR 0.92 MG/DL (0.55-1.30); GLOMERULAR FILTRATION RATE > 60.0 (>58); GLUCOSE, FASTING 93 MG/DL (70-100); POTASSIUM SERUM 4.2 MEQ/L (3.5-5.1); SODIUM LEVEL 140 MEQ/L (136-145)
== END ==
LOC: SKLAB5 08:00
PROVIDERS: ATTEND Internal Medicine
DX: D64.9 Anemia, unspecified (principal); E03.9 Hypothyroidism, unspecified; M06.9 Rheumatoid arthritis, unspecified

== ENCOUNTER → 2019-03-05 | Outpatient (CLI) | payer MEDICARE, MEDICAID ==
--- NOTE | 2019-03-05 17:48 | REP ---
Examination Requested: Cookie Swallow Reason For Exam: Dysphasia The procedure was performed by JOESPH Mcgowan, under the direct supervision of Dr. Antunez. The procedure was performed with Demi Loyola from speech pathology present. 5 ml aliquots of thin, pudding, nectar, honey, hard food and pill consistency barium was administered. No penetration or aspiration was visualized throughout the course of the exam. The detailed report of this examination will be provided by speech pathology. 3.0 minutes of fluoroscopy time was utilized for this procedure. Reviewed by JOESPH Beck 03/05/2019 03:51 P Electronically Signed by Giovanny Antunez MD 03/05/2019 05:39 P
== END ==
LOC: M ST 14:17
PROVIDERS: ATTEND Internal Medicine
DX: R13.12 Dysphagia, oropharyngeal phase (principal)

== ENCOUNTER → 2019-03-27 | Outpatient (REF) | payer MEDICARE, MEDICAID ==
[~2019-03-27] MED LIST changes: +ACET-897 PO; +ACET-907 PO; +ASPE16CR TOP; +DOCU100C16 PO; +DULC10SU2 PR; +ENSU1LIQ36 PO; +FOLI0.8T PO; +MOM30SS PO; +SALI0.6530 NARES; +[UNRECOGNIZED DRUG - CODE] SQ
[2019-03-27 09:09] LABS: HEMATOCRIT 41.1 % (36.0-47.0); HEMOGLOBIN 13.5 g/dl (12.0-15.5); MEAN CORPUSCULAR HEMOGLOBIN 30.8 pg (27.0-33.0); MEAN CORPUSCULAR HGB CONC 32.8 g/dl (32.0-36.5); MEAN CORPUSCULAR VOLUME 93.6 fl (80.0-96.0); PLATELET COUNT, AUTOMATED 217 10^3/uL (150-450); RED BLOOD COUNT 4.39 10^6/uL (4.00-5.40); WHITE BLOOD COUNT 9.8 10^3/uL (4.0-10.0)
== END ==
LOC: SKLAB5 07:40
PROVIDERS: ATTEND Internal Medicine
DX: D64.9 Anemia, unspecified (principal)

== ENCOUNTER 2019-03-28 14:03 | Emergency (ER) | payer MEDICARE, MEDICAID ==
[~2019-03-28] VITALS: Ht 152.4 cm; Wt 53.2 kg
[~2019-03-28 14:03] MED LIST changes: -ACET-897 PO; -ACET-907 PO; -ASPE16CR TOP; -DOCU100C16 PO; -DULC10SU2 PR; -ENSU1LIQ36 PO; -FOLI0.8T PO; -MOM30SS PO; -SALI0.6530 NARES; -[UNRECOGNIZED DRUG - CODE] SQ
[2019-03-28] MEDS ORDERED: DOCU100C16 PO (14:59)
[2019-03-28] MEDS ORDERED: ASPE16CR TOP (14:59)
[2019-03-28] MEDS ORDERED: FOLI0.8T PO (14:59)
[2019-03-28] MEDS ORDERED: MOM30SS PO (14:59)
[2019-03-28] MEDS ORDERED: ENSU1LIQ36 PO (14:59)
[2019-03-28] MEDS ORDERED: SALI0.6530 NARES (14:59)
[2019-03-28] MEDS ORDERED: ACET-907 PO (14:59)
[2019-03-28] MEDS ORDERED: ACET-897 PO (14:59)
[2019-03-28] MEDS ORDERED: DULC10SU2 PR (14:59)
[2019-03-28] MEDS ORDERED: [UNRECOGNIZED DRUG - CODE] SQ (14:59)
[2019-03-28] MEDS ORDERED: ONDANSETRON 4MG/2ML VIAL (J2405) IV ONE (15:15)
[2019-03-28] MEDS ORDERED: MORPHINE 4 MG/ML 1ML VIAL/SYRINGE (J2270) IV ONE (15:15)
[2019-03-28 15:33] VITALS: BP 107/55
== END 2019-03-28 16:02 | disposition home or self-care (01) ==
LOC: EDBD 14:03 → M ED 14:03
DX: R51 Headache (principal); H53.9 Unspecified visual disturbance; Z86.73 Personal history of transient ischemic attack (TIA), and cerebral infarction without residual deficits; F32.9 Major depressive disorder, single episode, unspecified; Z79.899 Other long term (current) drug therapy; Z88.1 Allergy status to other antibiotic agents; Z88.8 Allergy status to other drugs, medicaments and biological substances; Z88.6 Allergy status to analgesic agent
CPT/HCPCS: 36415; 70450; 80047; 85027; 93005; 96374; 96375; 99284; J2270; J2405

== ENCOUNTER → 2019-03-28 | Outpatient (CLI) | payer MEDICARE, MEDICAID ==
--- NOTE | 2019-03-28 12:55 | REP ---
CT brain: 03/28/2019. Indication: Diplopia. Headache. Comparison: 03/22/2018. Technique: Axial unenhanced CT images of the brain were obtained from skull base to vertex. Findings: Areas of hypoattenuation are present within the right frontoparietal region as well as the left temporal parietal region which likely represent subacute to chronic infarctions. There is a small area of hyperattenuation within the left parietal lobe with small hemorrhage not excluded. There is no significant mass effect. There is no hydrocephalous. Diffuse volume loss is present. Impression: Likely chronic bilateral posterior cerebral hemisphere infarctions as described. Small focus of hypoattenuation within the left parietal region with small acute infarction not excluded. Correlation with any previous recent imaging would be helpful. Significant volume loss for the patient's age. Electronically Signed by Sumanth Gutierrez DO 03/28/2019 12:47 P
--- NOTE | 2019-03-29 09:02 | ECGEPIP ---
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
== END ==
LOC: M RAD 11:04
PROVIDERS: ATTEND Nurse Practitioner Family
DX: H53.9 Unspecified visual disturbance (principal); R51 Headache

== ENCOUNTER → 2019-03-28 | Outpatient (REF) | payer MEDICARE, MEDICAID ==
[2019-03-28 12:03] LABS: HEMATOCRIT 44.5 % (36.0-47.0); HEMOGLOBIN 14.2 g/dl (12.0-15.5); MEAN CORPUSCULAR HEMOGLOBIN 30.3 pg (27.0-33.0); MEAN CORPUSCULAR HGB CONC 31.9 g/dl (32.0-36.5); MEAN CORPUSCULAR VOLUME 94.9 fl (80.0-96.0); PLATELET COUNT, AUTOMATED 232 10^3/uL (150-450); RED BLOOD COUNT 4.69 10^6/uL (4.00-5.40); WHITE BLOOD COUNT 10.2 10^3/uL (4.0-10.0)
== END ==
LOC: SKLAB5 11:02
PROVIDERS: ATTEND Internal Medicine
DX: R51 Headache (principal); H53.9 Unspecified visual disturbance